=== PATIENT | female | born 1950 | race Caucasian/White ===

== ENCOUNTER 2020-03-18 08:46 | Outpatient (REF) | payer MEDICARE, SELFPAY ==
[2020-03-18 11:42] LABS: Glucose Urine UA NEG (NEG); Leukocyte Esterase Urine 1+ (NEG); Nitrite Urine NEG (NEG); PH 5.5 (5.0-8.0); Specific Gravity - Urine >= 1.030 (1.005-1.025); Urine Blood 1+ (NEG); Urine Ketones NEG (NEG); Urine Protein 1+ MG/DL (NEG-TRACE)
[2020-03-18 11:45] LABS: Appearance Urine CLOUDY; Color Urine YELLOW
[2020-03-18 12:03] LABS: Bacteria Urine 1+ /LPF; Squamous Epithelial Cell Urine 1+ /LPF; WBC Urine TNTC /HPF (0-4)
== END 2020-03-18 08:47 | disposition home or self-care (01) ==
LOC: HO.LAB 08:46
PROVIDERS: PCP Internal Medicine; Visit Provider Internal Medicine
DX: N39.0 Urinary tract infection, site not specified (principal)
CPT/HCPCS: 81001; 81003; 87086

== ENCOUNTER → 2020-04-26 09:46 | Outpatient (BNVA) | payer MEDICARE, SELFPAY | PROVIDERS: PCP Internal Medicine; Referring Provider Internal Medicine; Visit Provider Surgery | DX: C50.911 Malignant neoplasm of unspecified site of right female breast (principal); Z79.811 Long term (current) use of aromatase inhibitors; Z17.0 Estrogen receptor positive status [ER+]; Z92.3 Personal history of irradiation | CPT/HCPCS: 99212 ==

== ENCOUNTER 2020-06-14 13:36 | Outpatient (REF) | payer MEDICARE, SELFPAY ==
--- NOTE | 2020-06-14 13:41 | MM_ITS ---
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 Two biopsy clip markers localized prior to lumpectomy but only 1 clip marker visible on specimen x-ray. Due for yearly exam. COMPARISON: Mammography: 09/08/2019, 09/07/2019, 08/27/2019, outside mammography 02/18/2017 ([facility]). TECHNIQUE: Digital breast tomosynthesis is performed in both the craniocaudal and mediolateral oblique views along with computer-aided detection (CAD). Synthesized 2D images are generated from the tomosynthesis. Additional magnification right CC and magnification right ML views are obtained. FINDINGS: The breasts are heterogeneously dense, which may obscure small masses (ACR BI-RADS breast composition Category c). There are post therapy changes right breast with minor scarring and smooth anterior skin thickening. The missing biopsy clip marker noted at time of lumpectomy is not demonstrated within the breast. The left breast shows no interval mass or architectural abnormality. There are numerous bilateral round and coarse and punctate calcifications again seen. The axilla are unremarkable. Results are provided to the patient at time of visit by the technologist. MM/MM tomosynthesis diagnostic BI IMPRESSION: 1. No mammographic evidence of malignancy. 2. Post therapy changes right breast. 3. No residual clip marker is demonstrated right breast. ASSESSMENT: BI-RADS 2: Benign RECOMMENDATION: Annual bilateral mammography. This patient's information was entered into a reminder system with a target due date for their next mammogram.
== END 2020-06-14 13:37 | disposition home or self-care (01) ==
LOC: HO.MAMMO 13:36
PROVIDERS: PCP Internal Medicine; Visit Provider Surgery
DX: Z85.3 Personal history of malignant neoplasm of breast (principal)
CPT/HCPCS: 77062; 77066

== ENCOUNTER → 2020-06-26 07:41 | Outpatient (BNV) | payer MEDICARE, SELFPAY | PROVIDERS: PCP Internal Medicine; Visit Provider Internal Medicine | DX: C50.911 Malignant neoplasm of unspecified site of right female breast (principal) | CPT/HCPCS: 99212; 99213; 99214; G2211 ==

== ENCOUNTER → 2020-07-28 09:46 | Outpatient (BNVA) | payer MEDICARE, SELFPAY | PROVIDERS: PCP Internal Medicine; Visit Provider Surgery | DX: C50.911 Malignant neoplasm of unspecified site of right female breast (principal) | CPT/HCPCS: 99212 ==

== ENCOUNTER 2020-08-07 12:26 | Outpatient (REF) | payer MEDICARE, SELFPAY ==
[2020-08-07 13:51] LABS: MANUAL DIFF FLAG NO
[2020-08-07 14:13] LABS: Basophils Absolute Auto 0.1 X10*3/uL (0.0-0.2); Basophils Percent Auto 0.7 % (0-2); Eosinophils Absolute Auto 0.3 X10*3/uL (0.0-0.4); Eosinophils Percent Auto 4.2 % (0-4); Hematocrit 42.3 % (37-47); Hemoglobin 13.8 g/dl (12.0-16.0); Imm Gran Abs Auto 0.05 X10*3/uL (0.00-0.03); Imm Gran Pct Auto 0.7 % (0.0-0.4); Lymphocytes Absolute Auto 0.9 X10*3/uL (1.2-4.9); Mean Corpuscular HGB Conc 32.6 g/dl (31.0-35.0); Mean Corpuscular Hemoglobin 34.8 pg (27.0-33.0); Mean Corpuscular Volume 106.5 fL (80-98); Mean Platelet Volume 11.1 fL (9.4-12.3); Monocytes Absolute Auto 0.5 X10*3/uL (0.1-1.2); Monocytes Percent Auto 6.8 % (2-11); Neutrophils Absolute Auto 4.9 X10*3/uL (2.0-8.3); Neutrophils Percent Auto 73.6 % (45-73); Platelet Count 216 X10*3/uL (160-400); Red Blood Count 3.97 X10*6/uL (4.20-5.50); Red Cell Distribution Width 14.6 % (11.0-16.0); White Blood Count 6.7 X10*3/uL (4.8-10.8)
[2020-08-07 14:23] LABS: Glucose Urine UA NEG (NEG); Leukocyte Esterase Urine NEG (NEG); Nitrite Urine NEG (NEG); PH 5.5 (5.0-8.0); Specific Gravity - Urine 1.025 (1.005-1.025); Urine Blood NEG (NEG); Urine Ketones NEG (NEG); Urine Protein NEG (NEG-TRACE)
[2020-08-07 14:24] LABS: Appearance Urine CLEAR; Color Urine YELLOW
[2020-08-07 14:26] LABS: Estimated Average Glucose 137 mg/dL; Hemoglobin A1c % 6.4 %
[2020-08-07 14:53] LABS: Alanine Aminotransferase 15 U/L (0-31); Albumin Level 3.9 g/dL (3.5-5.0); Alkaline Phosphatase 95 U/L (39-117); Anion Gap 12 (12-20); Aspartate Amino Transferase 16 U/L (5-31); Bilirubin Total 0.6 mg/dL (0.0-1.0); Blood Urea Nitrogen 24 mg/dL (9-16); Calcium 8.7 mg/dL (8.4-10.2); Carbon Dioxide 26 mmol/L (22-29); Chloride 107 mmol/L (96-108); Cholesterol 117 mg/dL; Estimated Glomerular Filt Rate > 60; Glucose Fasting 106 mg/dL (60-99); HDL Cholesterol 39 mg/dL; LDL Cholesterol Calculated 63 mg/dl; Potassium 3.8 mmol/L (3.3-5.1); Sodium 141 mmol/L (135-145); Total Protein 7.2 g/dL (6.5-8.0); Triglycerides 75 mg/dL
[2020-08-07 14:57] LABS: Creatinine Urine 121.08 mg/dL; Microalbum/Creatinine Ratio Ur 32.2 ug/mg cr
[2020-08-07 15:04] LABS: TSH reflex Free T4 0.39 uIU/mL (0.32-4.0); Vitamin D 25-OH Total 39.5 ng/mL (>30)
[2020-08-07 15:30] LABS: Reflex LDLD? No
== END 2020-08-07 12:27 | disposition home or self-care (01) ==
LOC: HO.LNP 12:26
PROVIDERS: Visit Provider Internal Medicine
DX: E11.9 Type 2 diabetes mellitus without complications (principal); E03.9 Hypothyroidism, unspecified; E78.5 Hyperlipidemia, unspecified; R31.9 Hematuria, unspecified; I10 Essential (primary) hypertension; I73.9 Peripheral vascular disease, unspecified; E55.9 Vitamin D deficiency, unspecified
CPT/HCPCS: 80053; 80061; 81003; 82043; 82306; 83036; 84443; 85025

== ENCOUNTER 2020-08-15 13:49 | Outpatient (REF) | payer MEDICARE, SELFPAY ==
[2020-08-15 15:05] LABS: Vitamin B12 555 pg/mL (200-900)
[2020-08-15 15:59] LABS: Folate 3.7 ng/mL (> or = 4.0)
== END 2020-08-15 13:50 | disposition home or self-care (01) ==
LOC: HO.LNP 13:49
PROVIDERS: Visit Provider Internal Medicine
DX: E11.9 Type 2 diabetes mellitus without complications (principal)
CPT/HCPCS: 82607; 82746

== ENCOUNTER → 2020-09-22 09:38 | Outpatient (REF) | payer MEDICARE, SELFPAY ==
--- NOTE | 2020-09-22 09:42 | CA_ITS ---
Transthoracic Echocardiogram Patient (Last, First, Middle): Alla Velasquez, Gender: Female Date of : 1950 Age: 70 Procedure Date: 09/22/2020 Procedure Type: Transthoracic Echocardiogram Location: OP Height: 170.18 cm Weight: 83.01 kg BSA: 1.95 m2 Heart Rate: bpm BP: 139 / 64 mmHg Hydroponics Worker: SANTY Referring MD: Ariel Akhtar MD Symptoms: MURMUR Conclusions: - Normal left ventricular size and systolic function. - There is mildly increased left ventricular wall thickness. - E/E prime ratio is >15, consistent with elevated filling pressures. - Normal right ventricular cavity size and systolic function. - There is mild dilatation of the ascending aorta. Findings Left Ventricle Normal left ventricular size and systolic function. There is mildly increased left ventricular wall thickness. The visually estimated ejection fraction is between 60-65%. Abnormal diastolic function is noted. Spectral Doppler is indicative of an impaired relaxation filling pattern. E/E prime ratio is >15, consistent with elevated filling pressures. Right Ventricle Normal right ventricular cavity size and systolic function. Atria The left atrium is normal in size. Aortic Valve There is a normal trileaflet aortic valve. There is mild calcification of the aortic valve. There is no aortic valve stenosis. There is mild aortic valve regurgitation. Mitral Valve There is moderate mitral annular calcification. There is no mitral valve regurgitation. There is no mitral valve stenosis. Pulmonic Valve Normal pulmonic valve structure and function. There is trace pulmonic valve regurgitation. Great Vessels There is mild dilatation of the ascending aorta. The visualized portions of the pulmonary artery and branches are normal. Venous The inferior vena cava is normal in size and collapses greater than 50% with inspiration. Pericardium/Pleural There is no evidence of pericardial effusion. Prior Study Comparison No prior study available for comparison. Measurements 2D Linear Measurements IVSd: 0.86 0.6-0.9/0.6-1.0 cm LVIDd: 4.38 3.9-5.3/4.2-5.9 cm LVIDd Index: 2.25 2.4-3.2/2.2-3.1 cm/m2 LVIDs: 2.96 2.0-3.6 cm LVPWd: 0.92 0.7-1.1 cm Ao Root: 2.90 2.1-3.5 cm LA Diam: 3.40 2.7-3.8/3.0-4.0 cm LAIDs Index: 1.74 1.5-2.3 cm/m2 LV Mass: 155.59 67-162/88-224 g LV Mass Index: 79.79 43-95/49-115 g/m2 LVOT Diam: 2.10 3.0+(-)1.3 cm 2D Systolic Function EF 4C: 55.50 >55% EF 2C: 55.60 >55% Mitral Valve MV VTI: 0.41 MV Pk Doug: 1.36 MV Mn Doug: 0.70 MV Pk Grad: 7.00 MV Mn Grad: 2.00 MV Pk E: 1.16 MV PK A: 1.34 MV Decel Time: 193.00 E/A: 0.90 E'Lateral: 6.74 E'Medial: 6.09 E/E' Med: 19.00 E/E' Lat: 17.20 PHT: 56.00 MVA PHT: 3.93 MVA Continuity: 2.96 Decel [place]: 6.04 Aortic Valve AoV Pk Doug: 1.78 AoV Pk Grad: 13.00 AI Pk Doug: 3.91 AI [place]: 2.53 LVOT LVOT Pk Doug: 1.47 LVOT Mn Doug: 0.99 LVOT VTI: 0.35 LVOT Pk Grad: 9.00 LVOT Mn Grad: 5.00 LVOT Diam: 2.10 LVOT Area: 3.46 Diastolic Function MV Pk E: 1.16 MV Pk A: 1.34 E/A: 0.90 E'Medial: 6.09 E/E' Med: 19.00 E' Laterial: 6.74 E/E' Lat: 17.20 Tricuspid Valve RA Press: 3.00 Great Vessels Aorta Ao Root-2D: 2.90 2.0-3.7 cm Ao Asc: 3.60 2.1-3.4 cm Updated in Other Vendor System with Status of Final Crow Baker MD electronically signed on 09/23/2020 10:40:06 PM with status of Final
== END ==
LOC: HO.CARD 09:38
PROVIDERS: Visit Provider Internal Medicine
DX: R01.1 Cardiac murmur, unspecified (principal)
CPT/HCPCS: 93306

== ENCOUNTER 2020-10-09 10:29 | Outpatient (REF) | payer MEDICARE, SELFPAY ==
[2020-10-09 12:25] LABS: Blood Urea Nitrogen 20 mg/dL (9-16); Estimated Glomerular Filt Rate > 60
== END 2020-10-09 10:30 | disposition home or self-care (01) ==
LOC: HO.LNP 10:29
PROVIDERS: Visit Provider Internal Medicine
DX: R79.9 Abnormal finding of blood chemistry, unspecified (principal)
CPT/HCPCS: 82565; 84520

== ENCOUNTER → 2020-11-09 10:21 | Outpatient (BNVA) | payer MEDICARE, SELFPAY | PROVIDERS: PCP Internal Medicine; Referring Provider Internal Medicine; Visit Provider Surgery | DX: C50.911 Malignant neoplasm of unspecified site of right female breast (principal) | CPT/HCPCS: 99212 ==

== ENCOUNTER 2021-02-06 10:19 | Outpatient (REF) | payer MEDICARE, SELFPAY ==
[2021-02-06 10:46] LABS: Alanine Aminotransferase 14 U/L (0-31); Albumin Level 3.8 g/dL (3.5-5.0); Alkaline Phosphatase 89 U/L (39-117); Aspartate Amino Transferase 13 U/L (5-31); Bilirubin Direct 0.3 mg/dL (0.0-0.5); Bilirubin Total 0.8 mg/dL (0.0-1.0); Cholesterol 114 mg/dL; Glucose Fasting 151 mg/dL (60-99); HDL Cholesterol 38 mg/dL; LDL Cholesterol Calculated 60 mg/dl; Total Protein 6.6 g/dL (6.5-8.0); Triglycerides 81 mg/dL
[2021-02-06 14:32] LABS: Estimated Average Glucose 126 mg/dL
[2021-02-06 14:50] LABS: Reflex LDLD? No
== END 2021-02-06 10:20 | disposition home or self-care (01) ==
LOC: HO.LNP 10:19
PROVIDERS: Visit Provider Internal Medicine
DX: E11.9 Type 2 diabetes mellitus without complications (principal); E78.5 Hyperlipidemia, unspecified
CPT/HCPCS: 80061; 80076; 82947; 83036

== ENCOUNTER → 2021-02-08 09:16 | Outpatient (BNVA) | payer MEDICARE, SELFPAY | PROVIDERS: PCP Internal Medicine; Referring Provider Internal Medicine; Visit Provider Surgery | DX: C50.911 Malignant neoplasm of unspecified site of right female breast (principal) | CPT/HCPCS: 99212 ==

== ENCOUNTER 2021-06-21 13:23 | Outpatient (REF) | payer MEDICARE, SELFPAY ==
--- NOTE | ~2021-06-21 | MM_ITS ---
EXAMINATION: MM DIAGNOSTIC DIGITAL BREAST TOMOSYNTHESIS, BILATERAL CLINICAL INFORMATION: Invasive ductal cancer and DCIS right breast status post lumpectomy 09/15/2019. Due for yearly. COMPARISON: Mammography: 06/14/2020, 09/15/2019, 09/08/2019, 09/07/2019, 08/27/2019; outside mammography 02/18/2017 ([facility]). TECHNIQUE: Digital breast tomosynthesis is performed in both the craniocaudal and mediolateral oblique views along with computer-aided detection (CAD). Synthesized 2D images are generated from the tomosynthesis. Additional magnification right CC and magnification right ML views are obtained. FINDINGS: The breasts are heterogeneously dense, which may obscure small masses (ACR BI-RADS breast composition Category c). Right breast post therapy changes are similar to prior exam. There is mild reduced breast size and stable scarring. Some mild smooth skin thickening is slightly decreased. Left breast has fibrocystic changes and subareolar duct ectasia similar to prior studies. Neither breast shows interval mass or architectural abnormality or developing density. Again, there are innumerable fine and coarse and some rim calcifications in both breasts. The axilla are unremarkable. Results are provided to the patient at time of visit by the technologist. MM/MM tomosynthesis diagnostic BI IMPRESSION: No significant changes from prior exams. Post therapy changes right breast. ASSESSMENT: BI-RADS 2: Benign RECOMMENDATION: Annual bilateral mammography. This patient's information was entered into a reminder system with a target due date for their next mammogram.
== END 2021-06-21 13:24 | disposition home or self-care (01) ==
LOC: HO.MAMMO 13:23
PROVIDERS: PCP Internal Medicine; Visit Provider Surgery
DX: Z85.3 Personal history of malignant neoplasm of breast (principal)
CPT/HCPCS: 77062; 77066

== ENCOUNTER 2021-07-10 08:01 | Outpatient (RCR) | payer MEDICARE, SELFPAY | END 2021-09-03 09:24 | disposition home or self-care (01) | LOC: HO.WCC 08:01 | PROVIDERS: PCP Internal Medicine; Visit Provider Physician Assistant | DX: E11.622 Type 2 diabetes mellitus with other skin ulcer (principal); L97.812 Non-pressure chronic ulcer of other part of right lower leg with fat layer exposed; E11.51 Type 2 diabetes mellitus with diabetic peripheral angiopathy without gangrene; E11.65 Type 2 diabetes mellitus with hyperglycemia; I10 Essential (primary) hypertension; F17.210 Nicotine dependence, cigarettes, uncomplicated; Z79.4 Long term (current) use of insulin; Z79.01 Long term (current) use of anticoagulants; Z95.9 Presence of cardiac and vascular implant and graft, unspecified; Z79.899 Other long term (current) drug therapy; Z92.3 Personal history of irradiation | CPT/HCPCS: 11042; 15271; 99212; Q4187 ==

== ENCOUNTER → 2021-08-14 09:18 | Outpatient (BNVA) | payer MEDICARE, SELFPAY | PROVIDERS: PCP Physician Assistant; Referring Provider Internal Medicine; Visit Provider Surgery | DX: C50.411 Malignant neoplasm of upper-outer quadrant of right female breast (principal); C50.211 Malignant neoplasm of upper-inner quadrant of right female breast; Z17.0 Estrogen receptor positive status [ER+]; R59.0 Localized enlarged lymph nodes; E11.9 Type 2 diabetes mellitus without complications; I10 Essential (primary) hypertension; I71.4 Abdominal aortic aneurysm, without rupture; E03.9 Hypothyroidism, unspecified; E78.00 Pure hypercholesterolemia, unspecified; F17.210 Nicotine dependence, cigarettes, uncomplicated; Z92.3 Personal history of irradiation; Z95.5 Presence of coronary angioplasty implant and graft; Z79.82 Long term (current) use of aspirin; Z79.4 Long term (current) use of insulin; Z79.899 Other long term (current) drug therapy | CPT/HCPCS: 99212 ==

== ENCOUNTER 2021-08-20 10:41 | Outpatient (REF) | payer MEDICARE, SELFPAY ==
[2021-08-20 10:46] LABS: MANUAL DIFF FLAG NO
[2021-08-20 11:01] LABS: Appearance Urine CLEAR; Basophils Absolute Auto 0.1 X10*3/uL (0.0-0.2); Basophils Percent Auto 0.9 % (0-2); Color Urine YELLOW; Eosinophils Absolute Auto 0.2 X10*3/uL (0.0-0.4); Glucose Urine UA NEG (NEG); Hematocrit 42.5 % (37.0-47.0); Hemoglobin 14.1 g/dl (12.0-16.0); Imm Gran Abs Auto 0.03 X10*3/uL (0.00-0.03); Imm Gran Pct Auto 0.5 % (0.0-0.4); Leukocyte Esterase Urine NEG (NEG); Lymphocytes Absolute Auto 0.9 X10*3/uL (1.2-4.9); Mean Corpuscular HGB Conc 33.2 g/dl (31.0-35.0); Mean Corpuscular Hemoglobin 35.1 pg (27.0-33.0); Mean Corpuscular Volume 105.7 fL (80.0-98.0); Monocytes Absolute Auto 0.4 X10*3/uL (0.1-1.2); Monocytes Percent Auto 7.1 % (2-11); Neutrophils Absolute Auto 3.9 x10*3/uL (2.0-8.3); Neutrophils Percent Auto 70.5 % (45-73); Nitrite Urine NEG (NEG); PH 5.5 (5.0-8.0); Platelet Count 163 X10*3/uL (160-400); Red Blood Count 4.02 X10*6/uL (4.20-5.50); Red Cell Distribution Width 13.9 % (11.0-16.0); Specific Gravity - Urine 1.025 (1.005-1.025); Urine Blood NEG (NEG); Urine Ketones NEG (NEG); Urine Protein NEG (NEG-TRACE); White Blood Count 5.5 X10*3/uL (4.8-10.8)
[2021-08-20 11:09] LABS: Alanine Aminotransferase 18 U/L (0-31); Alkaline Phosphatase 93 U/L (39-117); Anion Gap 12 (12-20); Aspartate Amino Transferase 18 U/L (5-31); Bilirubin Total 0.5 mg/dL (0.0-1.0); Blood Urea Nitrogen 24 mg/dL (9-16); Calcium 9.3 mg/dL (8.4-10.2); Carbon Dioxide 26 mmol/L (22-29); Chloride 104 mmol/L (96-108); Cholesterol 129 mg/dL; Estimated Glomerular Filt Rate > 60; Glucose Fasting 124 mg/dL (60-99); HDL Cholesterol 46 mg/dL; LDL Cholesterol Calculated 68 mg/dl; Potassium 4.1 mmol/L (3.3-5.1); Sodium 138 mmol/L (135-145); Total Protein 7.3 g/dL (6.5-8.0); Triglycerides 77 mg/dL
[2021-08-20 11:18] LABS: Estimated Average Glucose 126 mg/dL
[2021-08-20 11:32] LABS: Vitamin D 25-OH Total 33.9 ng/mL (>30)
[2021-08-20 12:06] LABS: Free T4 (Free Thyroxine) 1.46 ng/dL (0.71-1.85)
[2021-08-20 12:31] LABS: Creatinine Urine 59.16 mg/dL; Microalbum/Creatinine Ratio Ur 37.1 ug/mg cr
== END 2021-08-20 10:42 | disposition home or self-care (01) ==
LOC: HO.LNP 10:41
PROVIDERS: PCP Internal Medicine; Visit Provider Internal Medicine
DX: E11.9 Type 2 diabetes mellitus without complications (principal); I10 Essential (primary) hypertension; E78.5 Hyperlipidemia, unspecified; E03.9 Hypothyroidism, unspecified; E55.9 Vitamin D deficiency, unspecified
CPT/HCPCS: 80053; 80061; 81003; 82043; 82306; 83036; 84439; 84443; 85025

== ENCOUNTER 2021-08-30 13:58 | Outpatient (REF) | payer MEDICARE, SELFPAY ==
--- NOTE | ~2021-08-30 | US_ITS ---
EXAMINATION: NONINVASIVE ASSESSMENT OF THE ARTERIES OF BOTH LOWER EXTREMITIES WITH PVR EXAM AND RIGHT LOWER EXTREMITY DUPLEX CLINICAL INFORMATION: Peripheral vascular disease. History of left leg stent . TECHNIQUE: Ankle pulse volume recordings, ankle pressure measurements and ankle brachial indices were obtained of the lower extremity arterial system bilaterally. Additionally, duplex Doppler techniques were used with wave form analysis and measurement of velocities in the common femoral, profunda femoral, superficial femoral, popliteal and tibial arteries on the right. The study was performed only at rest. COMPARISON: None. FINDINGS: ANKLE-BRACHIAL INDEX: Right: 0.59 Left: 0.95. PVR WAVEFORM: Right: Moderately dampened. Left: Mildly dampened. DIRECT DUPLEX DOPPLER FINDINGS: RIGHT LEG: Common femoral artery: 112 cm/s, diastolic flow reversal: Yes. Profunda femoris artery: 161 cm/s, diastolic flow reversal: Yes. Superficial femoral artery (proximal): 154 cm/s, diastolic flow reversal: Yes. Superficial femoral artery (mid): 46 cm/s, diastolic flow reversal: No. Superficial femoral artery (distal): Occluded though the very distal SFA is reconstituted via collateral with a peak systolic velocity of 28.3 cm/s. Popliteal artery: 33 cm/s, diastolic flow reversal: No. Posterior tibial artery: 46cm/s, diastolic flow reversal: No. Peroneal artery: Not visualized, likely occluded. US/US VIPUL complete IMPRESSION: Right leg: VIPUL 0.59 consistent with moderate peripheral arterial disease. Right lower extremity duplex reveals focal occlusion of the distal right SFA with reconstitution of the very distal SFA/popliteal artery via collaterals. Left leg: VIPUL 0.95 consistent with mild peripheral arterial disease. VIPUL Reference: - >0.97-1.25 = normal - no significant arterial disease. - 0.75-0.96 = mild peripheral arterial disease. - 0.5-0.74 = moderate peripheral arterial disease. - <0.50 = severe peripheral arterial disease.
--- NOTE | ~2021-08-30 | US_ITS ---
EXAMINATION: NONINVASIVE ASSESSMENT OF THE ARTERIES OF BOTH LOWER EXTREMITIES WITH PVR EXAM AND RIGHT LOWER EXTREMITY DUPLEX CLINICAL INFORMATION: Peripheral vascular disease. History of left leg stent . TECHNIQUE: Ankle pulse volume recordings, ankle pressure measurements and ankle brachial indices were obtained of the lower extremity arterial system bilaterally. Additionally, duplex Doppler techniques were used with wave form analysis and measurement of velocities in the common femoral, profunda femoral, superficial femoral, popliteal and tibial arteries on the right. The study was performed only at rest. COMPARISON: None. FINDINGS: ANKLE-BRACHIAL INDEX: Right: 0.59 Left: 0.95. PVR WAVEFORM: Right: Moderately dampened. Left: Mildly dampened. DIRECT DUPLEX DOPPLER FINDINGS: RIGHT LEG: Common femoral artery: 112 cm/s, diastolic flow reversal: Yes. Profunda femoris artery: 161 cm/s, diastolic flow reversal: Yes. Superficial femoral artery (proximal): 154 cm/s, diastolic flow reversal: Yes. Superficial femoral artery (mid): 46 cm/s, diastolic flow reversal: No. Superficial femoral artery (distal): Occluded though the very distal SFA is reconstituted via collateral with a peak systolic velocity of 28.3 cm/s. Popliteal artery: 33 cm/s, diastolic flow reversal: No. Posterior tibial artery: 46cm/s, diastolic flow reversal: No. Peroneal artery: Not visualized, likely occluded. US/US arterial duplex LE RT IMPRESSION: Right leg: VIPUL 0.59 consistent with moderate peripheral arterial disease. Right lower extremity duplex reveals focal occlusion of the distal right SFA with reconstitution of the very distal SFA/popliteal artery via collaterals. Left leg: VIPUL 0.95 consistent with mild peripheral arterial disease. VIPUL Reference: - >0.97-1.25 = normal - no significant arterial disease. - 0.75-0.96 = mild peripheral arterial disease. - 0.5-0.74 = moderate peripheral arterial disease. - <0.50 = severe peripheral arterial disease.
== END 2021-08-30 13:59 | disposition home or self-care (01) ==
LOC: HO.US 13:58
PROVIDERS: PCP Physician Assistant; Visit Provider Physician Assistant
DX: I73.9 Peripheral vascular disease, unspecified (principal)
CPT/HCPCS: 93923; 93926

== ENCOUNTER 2021-11-19 11:30 | Outpatient (REF) | payer MEDICARE, SELFPAY ==
[2021-11-19 12:18] LABS: TSH reflex Free T4 0.32 uIU/mL (0.32-4.0)
== END 2021-11-19 11:31 | disposition home or self-care (01) ==
LOC: HO.LNP 11:30
PROVIDERS: PCP Internal Medicine; Visit Provider Internal Medicine
DX: E03.9 Hypothyroidism, unspecified (principal)
CPT/HCPCS: 84443

== ENCOUNTER 2021-11-20 07:11 | Day surgery (SDC) | payer MEDICARE, SELFPAY ==
[2021-11-14 10:08] VITALS: BMI 26.7
--- NOTE | 2021-11-19 08:26 | P.CONAN_ITS ---
Documented by User: Bianca Montero NP 11/19/21 08:28 HPI - Anesthesia Eval Consult details Narrative: 71yo F for Colonoscopy Eliquis for vascular stent PMFSH Active Problems Active Problems: All Active Problems (Updated 07/02/21 @ 08:22 by Nicolette Helton MD) Invasive ductal carcinoma of right breast (Chronic) Past Medical History Medical History AAA (abdominal aortic aneurysm) Diabetes High cholesterol Hypertension Hypothyroid Presence of stent in artery Family History Family History Brother History of bladder cancer Brother History of bladder cancer Mother Diabetes Heart abnormality History of bladder cancer Pacemaker Father Stroke Heart attack Surgical History Surgical History History of cataract surgery History of cholecystectomy History of hernia repair History of hysterectomy History of lumpectomy of right breast (09/15/19) History of right knee surgery Social History Social History Household Members: Spouse Housing: House Are you a primary pharmacist critical care to a significant other at home: No Do you presently have visiting nurse or other home services: No Alcohol intake: former Patient Tobacco Use Status: Current everyday Tobacco user Tobacco use type: Cigarette Cigarette Packs Per Day: 0.5 Use of substances other than those prescribed or required for medical reasons: No Are you DNR?: No Advance Directives: No Advance Directives Information Provided: Yes service: No Current occupational status: employed 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 [employer] Current occupational exposures/hazards: Yes (Stress) Sexual orientation: Straight/Heterosexual Gender identity: Female Meds Allergies Allergy/AdvReac Type Severity Reaction Status Date / Time codeine Allergy Mild Nausea and Verified 11/20/21 08:01 Vomiting oxycodone [From OxyContin] Allergy Mild Nausea and Verified 11/20/21 08:01 Vomiting Home Medications Medication Instructions Recorded Confirmed Last Taken Type atorvastatin 80 mg tablet 80 mg PO DAILY 04/26/20 08/14/21 Unknown History blood sugar diagnostic #10 ea 04/26/20 08/14/21 Unknown History insulin glargine 100 unit/mL (3 40 unit subcut BEDTIME 04/26/20 08/14/21 Unknown History mL) subcutaneous pen (Lantus Solostar U-100 Insulin) levothyroxine 175 mcg tablet 175 mcg PO DAILY 04/26/20 08/14/21 Unknown History lisinopril 20 mg tablet 20 mg PO DAILY 04/26/20 08/14/21 Unknown History pen needle, diabetic 31 gauge x #1,200 ea 04/26/20 08/14/21 Unknown History 10/22 trazodone 50 mg tablet 50 mg PO BEDTIME 04/26/20 08/14/21 Unknown History insulin lispro 100 unit/mL 4 - 12 unit subcut TID 06/26/20 08/14/21 Unknown Hist ory subcutaneous pen (Humalog KwikPen (U-100) Insulin) apixaban 5 mg tablet (Eliquis) 5 mg PO BID 11/09/20 08/14/21 11/16/21 History aspirin 81 mg tablet,delayed 81 mg PO DAILY 11/09/20 08/14/21 Unknown History release (Adult Aspirin Regimen) cholecalciferol (vitamin D3) 25 25 mcg PO DAILY 07/02/21 08/14/21 Unknown History mcg (1,000 unit) chewable tablet (Vitamin D3) Exam Exam Date and Time: November 19, 2021 0826 Height,Weight and Vital Signs: Height 5 ft 7 in Weight 77.564 kg Pertinent Lab Results Pertinent Lab Results: Laboratory Tests 08/20/21 08/20/21 07:20 07:20 WBC 5.5 Hgb 14.1 Hct 42.5 Plt Count 163 Sodium 138 Potassium 4.1 Chloride 104 Carbon Dioxide 26 BUN 24 H D Creatinine 0.67 Narrative Narrative: ECHO 09/2020 Conclusions: - Normal left ventricular size and systolic function.? - There is mildly increased left ventricular wall thickness. ? ? - E/E prime ratio is >15, consistent with elevated filling ? ? ? pressures. ? - Normal right ventricular cavity size and systolic function.? ? - There is mild dilatation of the ascending aorta. ? Findings Left Ventricle Normal left ventricular size and systolic function. There is mildly increased left ventricular wall thickness.? The visually estimated ejection fraction is between 60-65%.? Abnormal diastolic function is noted.? Spectral Doppler is indicative of an impaired relaxation filling pattern.? E/E prime ratio is >15, consistent with elevated filling pressures. Assessment and Plan Assessment Anesthesia Assessment: Chart Reviewed Documented by User: Rolan Kilpatrick MD 11/20/21 08:05 PMF Past Medical History Medical History AAA (abdominal aortic aneurysm) Diabetes High cholesterol Hypertension Hypothyroid Presence of stent in artery Family History Family History Brother History of bladder cancer Brother History of bladder cancer Mother Diabetes Heart abnormality History of bladder cancer Pacemaker Father Stroke Heart attack Family history of problems with anesthesia: No Surgical History Surgical History History of cataract surgery History of cholecystectomy History of hernia repair History of hysterectomy History of lumpectomy of right breast (09/15/19) History of right knee surgery Social History Social History Household Members: Spouse Housing: House Are you a primary pharmacist critical care to a significant other at home: No Do you presently have visiting nurse or other home services: No Alcohol intake: former Patient Tobacco Use Status: Current everyday Tobacco user Tobacco use type: Cigarette Cigarette Packs Per Day: 0.5 Use of substances other than those prescribed or required for medical reasons: No Are you DNR?: No Advance Directives: No Advance Directives Information Provided: Yes service: No Current occupational status: employed 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 [employer] Current occupational exposures/hazards: Yes (Stress) Sexual orientation: Straight/Heterosexual Gender identity: Female Meds Allergies Allergy/AdvReac Type Severity Reaction Status Date / Time codeine Allergy Mild Nausea and Verified 11/20/21 08:01 Vomiting oxycodone [From OxyContin] Allergy Mild Nausea and Verified 11/20/21 08:01 Vomiting Home Medications Medication Instructions Recorded Confirmed Last Taken Type atorvastatin 80 mg tablet 80 mg PO DAILY 04/26/20 08/14/21 Unknown History blood sugar diagnostic #10 ea 04/26/20 08/14/21 Unknown History insulin glargine 100 unit/mL (3 40 unit subcut BEDTIME 04/26/20 08/14/21 Unknown History mL) subcutaneous pen (Lantus Solostar U-100 Insulin) levothyroxine 175 mcg tablet 175 mcg PO DAILY 04/26/20 08/14/21 Unknown History lisinopril 20 mg tablet 20 mg PO DAILY 04/26/20 08/14/21 Unknown History pen needle, diabetic 31 gauge x #1,200 ea 04/26/20 08/14/21 Unknown History 5/16 trazodone 50 mg tablet 50 mg PO BEDTIME 04/26/20 08/14/21 Unknown History insulin lispro 100 unit/mL 4 - 12 unit subcut TID 06/26/20 08/14/21 Unknown History subcutaneous pen (Humalog KwikPen (U-100) Insulin) apixaban 5 mg tablet (Eliquis) 5 mg PO BID 11/09/20 08/14/21 11/16/21 History aspirin 81 mg tablet,delayed 81 mg PO DAILY 11/09/20 08/14/21 Unknown History release (Adult Aspirin Regimen) cholecalciferol (vitamin D3) 25 25 mcg PO DAILY 07/02/21 08/14/21 Unknown History mcg (1,000 unit) chewable tablet (Vitamin D3) Exam Airway Mallampati Class: I TM Dist: >3cm Neck ROM: Full Denture: Upper and Lower Loose/Missing/Broken Teeth: Yes Assessment and Plan Assessment Anesthesia Assessment: Anesthesia Plan Discussed Final Anesthetic Review Family History of Problems with Anesthesia: No ASA Class: III Final Preanesthetic Review: No Changes in Pt Med Stat, Meds/Allgs Chart Reviewed, Consent Obtained/Reviewed and Anes Risks/Benef Reviewed Patient Risk: Intermediate Procedure Risk: Low Anesthetic Plan Anesthetic Plan: MAC: Disposition: Standard PACU
[2021-11-20 07:33] VITALS: BMI 26.7
[2021-11-20 07:46] LABS: Glucose, Whole Blood 159 mg/dL (60-115)
[2021-11-20 07:48] VITALS: BP 124/65; PULSE 69; RESP 16; TEMP 36.8; O2SAT 96
--- NOTE | 2021-11-20 08:03 | MHC.SHP ---
Pre-Procedural Eval Section A Date of Service: 11/20/21 Section B Chief Complaint: screening Details of Present Illness: see H&P no changes Relevant Family History (Specify if Yes): No Relevant Social History: None Present Medications: see Short Stay Collaborative assessment Medical History: No relevant PMH History of Previous Operations: No relevant previous surgery Allergies: Allergies Allergy/AdvReac Type Severity Reaction Status Date / Time codeine Allergy Mild Nausea and Verified 11/20/21 08:01 Vomiting oxycodone [From OxyContin] Allergy Mild Nausea and Verified 11/20/21 08:01 Vomiting Review of Systems Sugical H&P ROS: Negative: Constitution, Cardiovascular, Respiratory, Neurological, Psychiatric, Hem-Onc, Allergic/Immunologic, Gastrointestinal, Genitourinary, Musculoskeletal, Integumentary, Endocrine and Eyes/Ears/Nose/Throat Exam Surgical H&P Exam: Normal: HEENT, Normal: Heart, Normal: Lungs, Normal: Extremities, Normal: Abdomen, Normal: Skin and Normal: Neurological Plan Diagnosis/Plan: Unchanged I have reviewed the history and physical and performed a pertinent physical examination on my patient. No changes have occurred unless specified.
--- NOTE | 2021-11-20 08:40 | P.BOP_ITS ---
Brief Operative Note Date of Service: 11/20/21 Pre-op diagnosis: screening Post-op diagnosis: same Surgeon: Ace Schofield Anesthesia: MAC Was an Operations Vice President used for this Procedure?: No Estimated blood loss (mL): 2 Pathology: other (polyps x3) Condition: stable Disposition: PACU
[2021-11-20 08:41] VITALS: BP 101/53; PULSE 70; RESP 20; TEMP 36.3; O2SAT 99
[2021-11-20 08:56] VITALS: BP 118/61; PULSE 68; RESP 20; TEMP 36.3; O2SAT 98
--- NOTE | 2021-11-20 09:10 | OP_ITS ---
SURGEON: Ace Schofield MD INDICATIONS: Colon cancer screening and prior history of adenomatous colon polyps. PREOPERATIVE DIAGNOSIS: POSTOPERATIVE DIAGNOSIS: PROCEDURE PERFORMED: Colonoscopy to the terminal ileum with snare polypectomy and biopsy. ESTIMATED BLOOD LOSS: COMPLICATIONS: ANESTHESIA: ASSISTANTS: SPECIMENS: MEDICATIONS: Monitored anesthesia care. DESCRIPTION OF PROCEDURE: History and physical performed. The risks and benefits of the procedure were explained to the patient. Informed consent was obtained. The patient was placed in the left lateral decubitus position. A digital rectal exam was performed and was found to be normal. The Olympus pediatric video colonoscope was introduced into the rectum and advanced to the cecum without difficulty. The cecum was identified by transillumination, palpation, and identification of ileocecal valve. Examination was performed. The scope was removed. She tolerated the procedure well, returned to recovery area in stable condition. FINDINGS: The terminal ileum was examined and appeared normal. The visualized colonic mucosa was within normal limits without evidence of masses or ulcers. Three polyps were identified. All were less than 10 mm and removed with a combination of snare polypectomy and biopsy forceps. These were located at 45, 30, and 20 cm. Retroflexed examination showed some hypertrophic anal papillae and some small internal hemorrhoids. There was mild sigmoid diverticulosis. The quality of prep was good. IMPRESSION: Colon polyps. RECOMMENDATIONS: Follow up the biopsy results. MD RENALDO Espinal/ANA LAURA / [id number]
== END 2021-11-20 09:24 | disposition home or self-care (01) ==
PROVIDERS: PCP Physician Assistant; Visit Provider Internal Medicine Gastroenterology
PROC: 0DJD8ZZ Inspection of Lower Intestinal Tract, Via Natural or Artificial Opening Endoscopic (ICD-10-PCS; CPT 45378; principal; 2021-11-20 08:20)
DX: Z12.11 Encounter for screening for malignant neoplasm of colon (principal); Z86.010 Personal history of colon polyps; D12.5 Benign neoplasm of sigmoid colon; K62.89 Other specified diseases of anus and rectum; K57.30 Diverticulosis of large intestine without perforation or abscess without bleeding; K64.8 Other hemorrhoids; C50.911 Malignant neoplasm of unspecified site of right female breast; Z85.42 Personal history of malignant neoplasm of other parts of uterus; E03.9 Hypothyroidism, unspecified; E78.00 Pure hypercholesterolemia, unspecified; I10 Essential (primary) hypertension; I71.4 Abdominal aortic aneurysm, without rupture; E11.9 Type 2 diabetes mellitus without complications; Z79.4 Long term (current) use of insulin; Z79.82 Long term (current) use of aspirin; Z79.811 Long term (current) use of aromatase inhibitors; Z79.899 Other long term (current) drug therapy; Z90.49 Acquired absence of other specified parts of digestive tract; Z88.8 Allergy status to other drugs, medicaments and biological substances; F17.210 Nicotine dependence, cigarettes, uncomplicated
CPT/HCPCS: 45385; 45380; 82947; 88305

== ENCOUNTER 2022-01-01 11:07 | Outpatient (REF) | payer MEDICARE, SELFPAY ==
[2022-01-01 11:21] LABS: MANUAL DIFF FLAG NO
[2022-01-01 11:42] LABS: Basophils Percent Auto 0.9 % (0-2); Eosinophils Absolute Auto 0.2 X10*3/uL (0.0-0.4); Eosinophils Percent Auto 5.3 % (0-4); Hematocrit 38.6 % (37.0-47.0); Imm Gran Abs Auto 0.02 X10*3/uL (0.00-0.03); Imm Gran Pct Auto 0.4 % (0.0-0.4); Lymphocytes Percent Auto 21.1 % (20-40); Mean Corpuscular HGB Conc 33.7 g/dl (31.0-35.0); Mean Corpuscular Hemoglobin 35.1 pg (27.0-33.0); Mean Corpuscular Volume 104.3 fL (80.0-98.0); Mean Platelet Volume 11.9 fL (9.4-12.3); Monocytes Absolute Auto 0.4 X10*3/uL (0.1-1.2); Monocytes Percent Auto 8.3 % (2-11); Neutrophils Absolute Auto 2.9 x10*3/uL (2.0-8.3); Platelet Count 138 X10*3/uL (160-400); Red Cell Distribution Width 14.9 % (11.0-16.0); White Blood Count 4.6 X10*3/uL (4.8-10.8)
== END 2022-01-01 11:08 | disposition home or self-care (01) ==
LOC: HO.LNP 11:07
PROVIDERS: Visit Provider Internal Medicine
DX: D75.89 Other specified diseases of blood and blood-forming organs (principal)
CPT/HCPCS: 85025

== ENCOUNTER → 2022-02-14 14:02 | Outpatient (BNVA) | payer MEDICARE, SELFPAY | PROVIDERS: PCP Internal Medicine; Visit Provider Surgery | DX: C50.211 Malignant neoplasm of upper-inner quadrant of right female breast (principal); C50.411 Malignant neoplasm of upper-outer quadrant of right female breast; Z17.0 Estrogen receptor positive status [ER+]; Z79.811 Long term (current) use of aromatase inhibitors; Z92.3 Personal history of irradiation | CPT/HCPCS: 99212 ==

== ENCOUNTER 2022-03-26 08:16 | Outpatient (REF) | payer MEDICARE, SELFPAY ==
--- NOTE | ~2022-03-26 | MM_ITS ---
EXAMINATION: BONE DENSITOMETRY CLINICAL INDICATION: Menopausal. COMPARISON: Baseline BD dated 10/26/2019. TECHNIQUE: Using a [employer] DXA System (software version: 13.1) manufactured by [employer], dual-energy x-ray absorptiometry was performed of the lumbar spine and left hip. The images are of good technical quality. Summary results are attached. FINDINGS: AP SPINE L1-L2 (excluding L3 and L4): The data of L1-L4 has been changed to exclude the L3 and L4 vertebral bodies, because degenerative changes at these levels may cause overestimation of lumbar spine density. Current: BMD 1.145 g/cm2, Z-score 1.1, T-score -0.2, normal, 3.0% decrease from baseline (<5% change is not significant). Baseline: BMD 1.181 g/cm2. LEFT FEMUR, NECK: Current: BMD 0.858 g/cm2, Z-score 0.2, T-score -1.3, osteopenia. Baseline: BMD 1.029 g/cm2. LEFT FEMUR, TOTAL: Current: BMD 0.917 g/cm2, Z-score 0.5, T-score -0.7, normal, 13.2% decrease from baseline (<5% change is not significant). Baseline: BMD 1.057 g/cm2. IDENTIFIED RISK FACTORS: Menopause, height loss, hysterectomy, osteoporosis, tobacco use (current smoker). HISTORY OF FRACTURE: None listed. MEDICATIONS: Vitamin D. MM/XR DEXA axial skeleton IMPRESSION: 1. DIAGNOSIS: Osteopenia based on the lowest T-score value of -1.3 in the femoral neck applying World Health Organization criteria. 2. 10-YEAR FRACTURE RISK PREDICTION, FRAX: Major osteoporotic fracture (clinical spine, forearm, hip or shoulder) 10.2%. Hip fracture 2.3%. 3. Treatment Recommendations: NOF guidelines recommend consideration for treatment in postmenopausal women and men age 50 and older presenting with the following: -A hip or vertebral (clinical or morphometric) fracture. -T-score less than or equal to -2.5 at the femoral neck or spine after appropriate evaluation to exclude secondary causes. -Low bone mass at the hip or spine and a 10-year fracture probability by FRAX of greater than or equal to 3% for hip fracture or greater than or equal to 20% for major osteoporotic fracture based on the [place] adapted WHO algorithm. 4. Other Recommendations: All treatment decisions require clinical judgment and consideration of individual patient factors, including patient preferences, comorbidities, previous drug use, risk factors not captured in the FRAX model (e.g. frailty, falls, vitamin D deficiency, increased bone turnover, interval significant decline in bone density) and possible under or overestimation of fracture risk by FRAX. Additional medical evaluation for secondary cause of low bone mineral density may be appropriate. FUTURE SCAN RECOMMENDATION: People with diagnosed cases of osteoporosis or at high risk for fracture should have regular bone mineral density tests. For patients eligible for Medicare, routine testing is allowed once every 2 years. The testing frequency can be increased to one year for patients who have rapidly progressing disease, those who are receiving or discontinuing medical therapy to restore bone mass, or have additional risk factors.
== END 2022-03-26 08:17 | disposition home or self-care (01) ==
LOC: HO.MAMMO 08:16
PROVIDERS: Visit Provider Internal Medicine
DX: Z13.820 Encounter for screening for osteoporosis (principal); Z78.0 Asymptomatic menopausal state
CPT/HCPCS: 77080

== ENCOUNTER 2022-04-22 10:54 | Outpatient (REF) | payer MEDICARE, SELFPAY ==
[2022-04-22 10:58] LABS: MANUAL DIFF FLAG NO
[2022-04-22 11:15] LABS: Basophils Percent Auto 0.9 % (0-2); Eosinophils Absolute Auto 0.2 X10*3/uL (0.0-0.4); Eosinophils Percent Auto 4.4 % (0-4); Hematocrit 38.1 % (37.0-47.0); Imm Gran Abs Auto 0.02 X10*3/uL (0.00-0.03); Imm Gran Pct Auto 0.5 % (0.0-0.4); Lymphocytes Absolute Auto 0.9 X10*3/uL (1.2-4.9); Lymphocytes Percent Auto 19.6 % (20-40); Mean Corpuscular HGB Conc 34.1 g/dl (31.0-35.0); Mean Corpuscular Hemoglobin 35.2 pg (27.0-33.0); Mean Corpuscular Volume 103.3 fL (80.0-98.0); Mean Platelet Volume 11.8 fL (9.4-12.3); Monocytes Absolute Auto 0.3 X10*3/uL (0.1-1.2); Monocytes Percent Auto 7.6 % (2-11); Neutrophils Absolute Auto 2.9 x10*3/uL (2.0-8.3); Platelet Count 149 X10*3/uL (160-400); Red Blood Count 3.69 X10*6/uL (4.20-5.50); Red Cell Distribution Width 14.6 % (11.0-16.0); White Blood Count 4.3 X10*3/uL (4.8-10.8)
== END 2022-04-22 10:55 | disposition home or self-care (01) ==
LOC: HO.LNP 10:54
PROVIDERS: Visit Provider Internal Medicine
DX: D69.59 Other secondary thrombocytopenia (principal)
CPT/HCPCS: 85025

== ENCOUNTER 2022-07-11 08:37 | Outpatient (REF) | payer MEDICARE, SELFPAY ==
--- NOTE | ~2022-07-11 | MM_ITS ---
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 Due for yearly. COMPARISON: Mammography: 06/21/2021, 06/14/2020, 09/15/2019, 09/08/2019, 09/07/2019, 08/27/2019 TECHNIQUE: Digital breast tomosynthesis is performed in both the craniocaudal and mediolateral oblique views along with computer-aided detection (CAD). Synthesized 2D images are generated from the tomosynthesis. Additional magnification right CC and magnification right ML x2 views are obtained. FINDINGS: The breasts are heterogeneously dense, which may obscure small masses (ACR BI-RADS breast composition Category c). Breast tissue composition borders on extremely dense. Parenchymal pattern is similar to prior study. There are post therapy changes again seen on the right. Neither breast shows interval significant mass or architectural abnormality or developing density. There are numerable bilateral predominantly coarse and rim and some punctate calcifications again seen. The axilla are unremarkable. No significant changes. Results are provided to the patient at time of visit by the technologist. MM/MM tomosynthesis diagnostic BI IMPRESSION: -No mammographic evidence of malignancy. -Post therapy changes right breast. ASSESSMENT: BI-RADS 2: Benign RECOMMENDATION: Annual bilateral mammography. This patient's information was entered into a reminder system with a target due date for their next mammogram.
== END 2022-07-11 08:38 | disposition home or self-care (01) ==
LOC: HO.MAMMO 08:37
PROVIDERS: Visit Provider Internal Medicine
DX: Z85.3 Personal history of malignant neoplasm of breast (principal)
CPT/HCPCS: 77062; 77066

== ENCOUNTER 2022-07-18 11:00 | Outpatient (REF) | payer MEDICARE, SELFPAY ==
[2022-07-18 11:02] LABS: MANUAL DIFF FLAG NO
[2022-07-18 12:06] LABS: Basophils Absolute Auto 0.1 X10*3/uL (0.0-0.2); Eosinophils Absolute Auto 0.1 X10*3/uL (0.0-0.4); Eosinophils Percent Auto 2.9 % (0-4); Hematocrit 38.4 % (37.0-47.0); Hemoglobin 12.9 g/dl (12.0-16.0); Imm Gran Abs Auto 0.02 X10*3/uL (0.00-0.03); Imm Gran Pct Auto 0.4 % (0.0-0.4); Lymphocytes Absolute Auto 0.8 X10*3/uL (1.2-4.9); Lymphocytes Percent Auto 16.8 % (20-40); Mean Corpuscular HGB Conc 33.6 g/dl (31.0-35.0); Mean Corpuscular Hemoglobin 33.9 pg (27.0-33.0); Mean Corpuscular Volume 101.1 fL (80.0-98.0); Mean Platelet Volume 11.6 fL (9.4-12.3); Monocytes Absolute Auto 0.3 X10*3/uL (0.1-1.2); Monocytes Percent Auto 6.6 % (2-11); Neutrophils Absolute Auto 3.5 x10*3/uL (2.0-8.3); Neutrophils Percent Auto 72.3 % (45-73); Platelet Count 157 X10*3/uL (160-400); Red Cell Distribution Width 14.5 % (11.0-16.0); White Blood Count 4.9 X10*3/uL (4.8-10.8)
== END 2022-07-18 11:01 | disposition home or self-care (01) ==
LOC: HO.LNP 11:00
PROVIDERS: Visit Provider Internal Medicine
DX: Z13.89 Encounter for screening for other disorder (principal)
CPT/HCPCS: 85025

== ENCOUNTER 2022-08-12 11:00 | Outpatient (REF) | payer MEDICARE, SELFPAY ==
[2022-08-12 12:02] LABS: Alanine Aminotransferase 9 U/L (0-31); Albumin Level 3.5 g/dL (3.5-5.0); Alkaline Phosphatase 83 U/L (39-117); Aspartate Amino Transferase 12 U/L (5-31); Bilirubin Total 0.8 mg/dL (0.0-1.0); Cholesterol 109 mg/dL; Glucose Fasting 117 mg/dL (60-99); HDL Cholesterol 33 mg/dL; LDL Cholesterol Calculated 61 mg/dl; Total Protein 6.3 g/dL (6.5-8.0); Triglycerides 76 mg/dL
[2022-08-12 12:05] LABS: Bilirubin Direct 0.3 mg/dL (0.0-0.5)
[2022-08-12 12:06] LABS: Estimated Average Glucose 123 mg/dL; Hemoglobin A1c % 5.9 %
== END 2022-08-12 11:01 | disposition home or self-care (01) ==
LOC: HO.LNP 11:00
PROVIDERS: Visit Provider Internal Medicine
DX: E11.9 Type 2 diabetes mellitus without complications (principal); E78.5 Hyperlipidemia, unspecified
CPT/HCPCS: 80061; 80076; 82947; 83036

== ENCOUNTER → 2022-08-15 08:54 | Outpatient (BNVA) | payer MEDICARE, SELFPAY | PROVIDERS: PCP Internal Medicine; Visit Provider Surgery | DX: C50.411 Malignant neoplasm of upper-outer quadrant of right female breast (principal); C50.211 Malignant neoplasm of upper-inner quadrant of right female breast; Z17.0 Estrogen receptor positive status [ER+]; Z92.3 Personal history of irradiation; Z79.811 Long term (current) use of aromatase inhibitors | CPT/HCPCS: 99212 ==

== ENCOUNTER 2022-11-14 16:05 | Outpatient (REF) | payer MEDICARE, SELFPAY ==
[2022-11-14 16:35] LABS: Appearance Urine Clear; Color Urine Yellow; Glucose Urine UA Negative (Negative); Leukocyte Esterase Urine Trace (Negative); Nitrite Urine Negative (Negative); UMIC TRIGGER UACC YES; Urine Blood Negative (Negative); Urine Ketones Negative (Negative); Urine Protein Negative (Neg-Trace)
[2022-11-14 16:37] LABS: Bacteria Urine None Seen (None Seen); Hyaline Casts Urine 0-2 /LPF (0-2); RBC Urine 0-2 /HPF (0-2); WBC Urine 0-5 /HPF (0-5)
== END 2022-11-14 16:06 | disposition home or self-care (01) ==
LOC: HO.LNP 16:05
PROVIDERS: Visit Provider Internal Medicine
DX: N39.0 Urinary tract infection, site not specified (principal)
CPT/HCPCS: 81001

== ENCOUNTER 2023-02-14 11:39 | Outpatient (REF) | payer MEDICARE, SELFPAY ==
[2023-02-14 11:46] LABS: MANUAL DIFF FLAG NO
[2023-02-14 11:54] LABS: Basophils Absolute Auto 0.1 X10*3/uL (0.0-0.2); Basophils Percent Auto 0.8 % (0-2); Eosinophils Absolute Auto 0.2 X10*3/uL (0.0-0.4); Eosinophils Percent Auto 3.2 % (0-4); Hematocrit 39.6 % (37.0-47.0); Hemoglobin 13.4 g/dl (12.0-16.0); Imm Gran Abs Auto 0.02 X10*3/uL (0.00-0.03); Imm Gran Pct Auto 0.3 % (0.0-0.4); Lymphocytes Absolute Auto 0.9 X10*3/uL (1.2-4.9); Lymphocytes Percent Auto 14.8 % (20-40); Mean Corpuscular HGB Conc 33.8 g/dl (31.0-35.0); Mean Corpuscular Hemoglobin 36.3 pg (27.0-33.0); Mean Corpuscular Volume 107.3 fL (80.0-98.0); Mean Platelet Volume 11.7 fL (9.4-12.3); Monocytes Absolute Auto 0.4 X10*3/uL (0.1-1.2); Monocytes Percent Auto 5.6 % (2-11); Neutrophils Absolute Auto 4.7 x10*3/uL (2.0-8.3); Neutrophils Percent Auto 75.3 % (45-73); Platelet Count 149 X10*3/uL (160-400); Red Blood Count 3.69 X10*6/uL (4.20-5.50); Red Cell Distribution Width 14.6 % (11.0-16.0); White Blood Count 6.2 X10*3/uL (4.8-10.8)
[2023-02-14 11:58] LABS: Appearance Urine Cloudy; Color Urine Dark Yellow; Glucose Urine UA Negative (Negative); Leukocyte Esterase Urine Moderate (2+) (Negative); Nitrite Urine Positive (Negative); UMIC TRIGGER UACC YES; Urine Blood Negative (Negative); Urine Ketones Negative (Negative); Urine Protein Negative (Neg-Trace)
[2023-02-14 12:05] LABS: Bacteria Urine 4+ (None Seen); Hyaline Casts Urine 0-2 /LPF (0-2); RBC Urine 0-2 /HPF (0-2); Squamous Epithelial Cell Urine 0-2 /HPF (0-2); UACC Culture Trigger YES; WBC Urine >50 /HPF (0-5)
[2023-02-14 12:25] LABS: Alanine Aminotransferase 14 U/L (0-31); Albumin Level 3.8 g/dL (3.5-5.0); Alkaline Phosphatase 78 U/L (39-117); Anion Gap 11 (12-20); Aspartate Amino Transferase 16 U/L (5-31); Bilirubin Total 0.6 mg/dL (0.0-1.0); Blood Urea Nitrogen 15 mg/dL (9-16); Calcium 9.4 mg/dL (8.4-10.2); Carbon Dioxide 26 mmol/L (22-29); Chloride 110 mmol/L (96-108); Cholesterol 111 mg/dL (<200); Estimated Glomerular Filt Rate > 60; Glucose Fasting 103 mg/dL (60-99); HDL Cholesterol 43 mg/dL (>40); LDL Cholesterol Calculated 54 mg/dL (<100); Potassium 3.6 mmol/L (3.3-5.1); Sodium 143 mmol/L (135-145); Triglycerides 70 mg/dL (<150)
[2023-02-14 12:29] LABS: TSH reflex Free T4 0.03 uIU/mL (0.32-4.0); Vitamin D 25-OH Total 31.4 ng/mL (>30)
[2023-02-14 12:57] LABS: Estimated Average Glucose 100 mg/dL; Hemoglobin A1c % 5.1 % (<6.0)
[2023-02-14 13:00] LABS: Free T4 (Free Thyroxine) 1.53 ng/dL (0.71-1.85)
== END 2023-02-14 11:40 | disposition home or self-care (01) ==
LOC: HO.LNP 11:39
PROVIDERS: Visit Provider Internal Medicine
DX: E11.9 Type 2 diabetes mellitus without complications (principal); I10 Essential (primary) hypertension; E78.5 Hyperlipidemia, unspecified; E03.9 Hypothyroidism, unspecified; E55.9 Vitamin D deficiency, unspecified; R82.91 Other chromoabnormalities of urine
CPT/HCPCS: 80053; 80061; 81001; 82306; 83036; 84439; 84443; 85025; 87086; 87088; 87186

== ENCOUNTER 2023-03-04 09:37 | Outpatient (AMB) | payer MEDICARE, SELFPAY ==
--- NOTE | 2023-03-04 09:42 | A.OFFVIS_ITS ---
Intake Vital Signs 3 03/04/23 09:47 Height 5 ft 7 in Weight 145 lb 1.027 oz BMI 22.7 BP 124/68 Blood Pressure Location Lt brachial Position Sitting Intake Visit Reasons: 6 month follow up visit, breast exam Intake Note: Patient is seen in office for 6 month follow up visit, breast exam. Patient c/o: denies any concerns regarding the breast Account Assistant Required: No Chemical Manager: Chemical Manager Present Accompanied by: Self / Same As Patient Allergies codeine Allergy (Mild, Verified 03/04/23 09:43) Nausea and Vomiting oxycodone [From OxyContin] Allergy (Mild, Verified 03/04/23 09:43) Nausea and Vomiting HPI HPI Comments 2 History of Present Illness0 Details 72-year-old female patient returning for breast cancer follow-up examination. She was found to have 2 abnormal densities in the right breast on mammogram of 09/08/2019. Subsequent ultrasound guided core biopsy revealed invasive ductal carcinoma, ER/MI positive, HER2 Zacarias negative. She underwent a right breast lumpectomy with sentinel node biopsy on 09/15/2019. Pathology confirmed invasive ductal carcinoma, grade 2, multifocal with DCIS, intermediate grade, margins negative for invasive or in-situ cancer, 0 of 1 sentinel nodes with metastatic disease (pT1cN0 (sn)(i-)). She underwent radiation therapy at [facility] which was completed on 12/17/2019. She was started on letrozole 2.[address] Helton. Her last mammogram dated 07/11/2022 revealed no significant change from the prior mammogram (BI-RADS 2). REPLACED BY [facility] Medical History History of trigger finger AAA (abdominal aortic aneurysm) Presence of stent in artery Hypertension Diabetes High cholesterol Hypothyroid Invasive ductal carcinoma of right breast Surgical History History of lumpectomy of right breast (09/15/19) History of hysterectomy History of right knee surgery History of hernia repair History of cholecystectomy History of cataract surgery Family History Brother History of bladder cancer Brother History of bladder cancer Mother Diabetes Heart abnormality History of bladder cancer Pacemaker Father Stroke Heart attack Social History Household Members: Spouse Housing: House Are you a primary palliative care nurse to a significant other at home: No Do you presently have visiting nurse or other home services: No Alcohol intake: former Patient Tobacco Use Status: Current everyday Tobacco user Tobacco use type: Cigarette Cigarette Packs Per Day: 0.5 service: No Current occupational status: employed 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 [employer] Current occupational exposures/hazards: Yes (Stress) Sexual orientation: Straight/Heterosexual Gender identity: Female Female Reproductive History Menstrual Date of Mammogram: 07/11/22 Review of Systems Const Denies chills, Denies fever(s), Denies headache(s), Denies poor appetite and Reports weight loss ENT Denies dizziness and Denies headache(s) Card Denies chest pain, Denies rapid heart rate, Denies palpitations and Denies slow heart rate Resp Denies chest congestion, Denies cough, Denies pain on inspiration and Denies wheezing GI Denies abdominal pain, Denies bloating, Denies change in stool character, Denies constipation, Denies diarrhea, Denies nausea, Denies vomiting and Denies hematemesis Musc Denies back pain, Denies arthralgias, Denies joint swelling and Denies numbness Skin/Breast Denies breast swelling, Denies breast skin changes, Denies breast pain, Denies breast mass, Denies change in pigmentation, Denies erythema and Denies rash Neuro Denies dizziness, Denies headache(s) and Denies numbness Psych Denies anxiety and Denies depression Endo Denies palpitations Roque/Lymph Reports easy bleeding, Reports easy bruising and Denies lymphadenopathy Aller/Immun Denies wheezing Physical Exam Const General: no acute distress and well developed Nutritional Appearance: well nourished Orientation/consciousness: patient oriented x3 Limitations: no limitations HEENT Head: Yes normocephalic and Yes atraumatic Eyes Sclerae: sclerae normal Neck Other: no palpable supraclavicular or cervical lymph nodes Chest Other: right breast: Well-healed incision in the upper outer quadrant with some slight retraction of the incision. No palpable mass, new skin change other than radiation change, nipple retraction, nipple discharge, or enlarged lymph nodes. Left breast: No skin change, no nipple retraction, no nipple discharge, or no enlarged lymph nodes; palpable mass noted in the left breast at 03:00 o'clock location just lateral to the nipple-areolar complex measuring approximately 1 cm in diameter, mobile within the breast tissue. No overlying skin changes appreciated. No fixation to the chest wall. Chest/axillae images: 2 1. Palpable mass left breast, 3 o'clock position 2. Incision from prior lumpectomy upper outer quadrant right breast Resp Other: breathing comfortably on room air, no respiratory distress GI Inspection: Yes normal to inspection Skin Other: warm and dry, no rash Neuro General: patient oriented x3 Extrem Other: no edema in arm or hands, normal range of motion Assessment & Plan Assessment & Plan (1) Invasive ductal carcinoma of right breast: Code(s): C50.911 - Malignant neoplasm of unspecified site of right female breast (2) Left breast mass: Code(s): N63.20 - Unspecified lump in the left breast, unspecified quadrant Qualifiers: Breast mass location: upper outer quadrant Qualified Code(s): N63.21 - Unspecified lump in the left breast, upper outer quadrant Plan 72-year-old female patient status post right breast lumpectomy with sentinel node biopsy for invasive ductal carcinoma right breast, ER/MI positive, HER2 Zacarias negative with negative margins and 0 of 2 sentinel nodes with metastatic disease performed on 09/15/2019. She completed radiation therapy in December 2019 and is now on letrozole 2.5 mg q.day. Her most recent mammogram of 07/11/2022 reveals no significant changes from prior mammogram, post therapy changes identified (BI- RADS 2). Examination today reveals a new palpable mass in the left breast at the 03:00 o'clock location as noted above. Finding is suspicious of a new left breast carcinoma. I recommended further workup with diagnostic mammogram and ultrasound. I will call her with the results of the study. She will also follow up in 6 months for routine breast examination. Orders: Orders 2 MM diagnostic mammo unilat LT Today C50.911 - Malignant neoplasm of unspecified site of right female breast, N63.20 - Unspecified lump in the left breast, unspecified quadrant US breast LT limited Today C50.911 - Malignant neoplasm of unspecified site of right female breast, N63.20 - Unspecified lump in the left breast, unspecified quadrant Coding Level of Care Code Est Pt Level 3 (00657) Diagnoses Invasive ductal carcinoma of right breast C50.911 Mass of upper outer quadrant of left breast N63.21 Breast mass location: upper outer quadrant
[2023-03-04 09:47] VITALS: BP 124/68; BMI 22.7
== END 2023-03-04 10:00 | disposition home or self-care (01) ==
PROVIDERS: PCP Internal Medicine; Visit Provider Surgery
DX: C50.911 Malignant neoplasm of unspecified site of right female breast (principal); N63.21 Unspecified lump in the left breast, upper outer quadrant
CPT/HCPCS: 99213

== ENCOUNTER → 2023-03-04 09:37 | Outpatient (BNVA) | payer MEDICARE, SELFPAY | PROVIDERS: PCP Internal Medicine; Visit Provider Surgery | DX: N63.21 Unspecified lump in the left breast, upper outer quadrant (principal); C50.911 Malignant neoplasm of unspecified site of right female breast; Z17.0 Estrogen receptor positive status [ER+]; Z92.3 Personal history of irradiation; Z79.811 Long term (current) use of aromatase inhibitors | CPT/HCPCS: 99212 ==

== ENCOUNTER 2023-03-31 14:36 | Outpatient (REF) | payer MEDICARE, SELFPAY ==
--- NOTE | ~2023-03-31 | US_ITS ---
EXAMINATION: MM DIAGNOSTIC DIGITAL BREAST TOMOSYNTHESIS, LEFT US BREAST LIMITED, LEFT MAMMOGRAPHY: CLINICAL INFORMATION: Patient presents for a newly palpable mass in the 3:00 region of the left breast, just lateral to the areola. According to the referring clinician, the mass measures approximately 1 cm in diameter. The patient had dark blood coming out of her nipple during the mammogram today. She also indicated that at the time of last mammogram in July 2002, there was also dark blood coming out of the nipple. This represents-induced bloody nipple discharge. COMPARISON: Mammography: This study is compared with prior mammograms dating back to 2016. TECHNIQUE: Digital breast tomosynthesis is performed in both the craniocaudal and mediolateral oblique views along with computer-aided detection (CAD). Synthesized 2D images are generated from the tomosynthesis. A full lateral view of the left breast was performed. FINDINGS: The breasts are heterogeneously dense, which may obscure small masses (ACR BI-RADS breast composition Category c). There is long-standing ductal ectasia involving the retroareolar region and anterior half of the superior aspect of the left breast. This appears to have increased in degree somewhat over a long period of time, particularly in the lateral aspect of the left breast. Overall the areas of ductal ectasia in the superior aspect of the left breast measure over 7 cm. There are numerous coarse calcifications throughout the anterior two thirds of the left breast. This occurs above and below the posterior nipple line. No discrete suspicious mass is evident by mammography. There is no architectural distortion. ULTRASOUND: CLINICAL INFORMATION: Newly palpable mass in the 3:00 region of the left breast, COMPARISON: None TECHNIQUE: Targeted sonographic evaluation was performed using a high frequency linear transducer. Selected archived documentation. FINDINGS: LEFT BREAST: Sonography of the subareolar region of the left breast reveals numerous dilated ducts, some containing echogenic debris which is not hypervascular. Numerous calcifications are also present, corresponding to the calcifications on the mammogram. These do not appear to be within the ducts on sonography. US/US breast LT limited mamm only IMPRESSION: Extensive ductal ectasia and calcification in the left breast as described above. This occurs in a patient who has dark blood arising from the nipple during 2 separate instances at mammography in less than a year. Blood coming from the nipple should never be considered normal, especially particularly in a patient with clinically palpable mass and a history of contralateral breast cancer. Further clinical evaluation is advised with the patient's palpable lump and bloody induced nipple discharge. Breast MRI is advised in the setting of a clinically palpable mass with no mammographic or sonographic correlate and blood arising from the nipple. I have discussed the above findings and recommendations with the patient and encouraged her to follow up with her referring clinician. OVERALL ASSESSMENT: Mammography: BI-RADS 0 - Incomplete: Needs additional Imaging. RECOMMENDATION: Additional Imaging required Clinical follow-up and breast MRI is advised. Results were provided to the patient at time of visit by the technologist. This patient's information was entered into a reminder system with a target due date for their next mammogram.
== END 2023-03-31 14:37 | disposition home or self-care (01) ==
LOC: HO.MAMMO 14:36
PROVIDERS: PCP Internal Medicine; Visit Provider Surgery
DX: N63.25 Unspecified lump in the left breast, overlapping quadrants (principal)
CPT/HCPCS: 76642; 77061; 77065

== ENCOUNTER → 2023-03-31 15:30 | Outpatient (BNV) | payer MEDICARE, SELFPAY | PROVIDERS: PCP Internal Medicine; Visit Provider Radiology Diagnostic Radiology | DX: N64.52 Nipple discharge (principal); R92.1 Mammographic calcification found on diagnostic imaging of breast; N60.42 Mammary duct ectasia of left breast | CPT/HCPCS: 76642; 77061; 77065; G0279 ==

== ENCOUNTER 2023-04-24 13:03 | Outpatient (AMB) | payer MEDICARE, SELFPAY ==
[2023-04-24 13:10] VITALS: BP 160/76; PULSE 76
--- NOTE | 2023-04-24 13:10 | A.OFFVIS_ITS ---
Intake Vital Signs 04/24/23 13:10 Weight 145 lb BP 160/76 H Blood Pressure Location Rt brachial Position Sitting Pulse 76 Intake Visit Reasons: Left breast mass, MRI results Intake Note: Patient is seen in office for breast MRI results, following left breast mass. Reports no new concerns. MRI Shileds: 04/14/23 Test Eng Required: No Accompanied by: Self / Same As Patient Allergies codeine Allergy (Mild, Verified 04/24/23 13:12) Nausea and Vomiting oxycodone [From OxyContin] Allergy (Mild, Verified 04/24/23 13:12) Nausea and Vomiting HPI HPI Comments History of Present Illness Details 72-year-old female patient returning for breast cancer follow-up exami [facility], [place]. She was found to have 2 abnormal densities in the right breast on mammogram of 09/08/2019. Subsequent ultrasound guided core biopsy revealed invasive ductal carcinoma, ER/SC positive, HER2 Zacarias negative. She underwent a right breast lumpectomy with sentinel node biopsy on 09/15/2019. Pathology confirmed invasive ductal carcinoma, grade 2, multifocal with DCIS, intermediate grade, margins negative for invasive or in-situ cancer, 0 of 1 sentinel nodes with metastatic disease (pT1cN0 (sn)(i-)). She underwent radiation therapy at [facility] which was completed on 12/17/2019. She was started on letrozole 2.[address] Helton. On her previous visit she was noted to have a palpable mass in the left breast in the subareolar location approximately the 3 o'clock position. She was subsequently sent for a diagnostic mammogram and ultrasound. This was performed on 03/31/2023 and revealed extensive ductal ectasia in the left breast corresponding to the region of abnormality. Breast MRI was recommended and the this was subsequently obtained at [place] on 04/14/2023. The breast MRI revealed bilateral areas of non-mass enhancement for which biopsy was recommended. Was also recommended to excise the palpable breast lesion as well. Findings were discussed in detail with the patient today. The patient reports having multiple stressors including the need to move her apartment after her . [facility] Medical History History of trigger finger AAA (abdominal aortic aneurysm) Presence of stent in artery Hypertension Diabetes High cholesterol Hypothyroid Invasive ductal carcinoma of right breast Surgical History History of lumpectomy of right breast (09/15/19) History of hysterectomy History of right knee surgery History of hernia repair History of cholecystectomy History of cataract surgery Family History Brother History of bladder cancer Brother History of bladder cancer Mother Diabetes Heart abnormality History of bladder cancer Pacemaker Father Stroke Heart attack Social History Household Members: Spouse Housing: House Are you a primary critical care registered nurse to a significant other at home: No Do you presently have visiting nurse or other home services: No Alcohol intake: former Patient Tobacco Use Status: Current everyday Tobacco user Tobacco use type: Cigarette Cigarette Packs Per Day: 0.5 service: No Current occupational status: employed 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 [employer] Current occupational exposures/hazards: Yes (Stress) Sexual orientation: Straight/Heterosexual Gender identity: Female Review of Systems Const Denies chills, Denies fever(s), Denies headache(s), Denies poor appetite and Reports weight loss ENT Denies dizziness and Denies headache(s) Card Denies chest pain, Denies rapid heart rate, Denies palpitations and Denies slow heart rate Resp Denies chest congestion, Denies cough, Denies pain on inspiration and Denies wheezing GI Denies abdominal pain, Denies bloating, Denies change in stool character, Denies constipation, Denies diarrhea, Denies nausea, Denies vomiting and Denies hematemesis Musc Denies back pain, Denies arthralgias, Denies joint swelling and Denies numbness Skin/Breast Denies breast swelling, Denies breast skin changes, Denies breast pain, Denies breast mass, Denies change in pigmentation, Denies erythema and Denies rash Neuro Denies dizziness, Denies headache(s) and Denies numbness Psych Denies anxiety and Denies depression Endo Denies palpitations Roque/Lymph Reports easy bleeding, Reports easy bruising and Denies lymphadenopathy Aller/Immun Denies wheezing Physical Exam Vital Signs: Last Vital Signs Pulse 76 04/24/23 13:10 BP 160/76 H 04/24/23 13:10 Const General: no acute distress and well developed Nutritional Appearance: well nourished Orientation/consciousness: patient oriented x3 Limitations: no limitations HEENT Head: Yes normocephalic and Yes atraumatic Eyes Sclerae: sclerae normal Neck Other: no palpable supraclavicular or cervical lymph nodes Chest Other: Exam deferred Resp Other: breathing comfortably on room air, no respiratory distress GI Inspection: Yes normal to inspection Skin Other: warm and dry, no rash Neuro General: patient oriented x3 Extrem Other: no edema in arm or hands, normal range of motion Assessment & Plan Assessment & Plan (1) Invasive ductal carcinoma of right breast: Code(s): C50.911 - Malignant neoplasm of unspecified site of right female breast (2) Left breast mass: Code(s): N63.20 - Unspecified lump in the left breast, unspecified quadrant Qualifiers: Breast mass location: upper outer quadrant Qualified Code(s): N63.21 - Unspecified lump in the left breast, upper outer quadrant Plan 72-year-old female patient status post right breast lumpectomy with sentinel node biopsy for invasive ductal carcinoma right breast, ER/SC positive, HER2 Zacarias negative with negative margins and 0 of 2 sentinel nodes with metastatic disease performed on 09/15/2019. She completed radiation therapy in December 2019 and is now on letrozole 2.5 mg q.day. Findings of the recent mammogram and breast MRI were reviewed in detail with the patient. I recommended proceeding with a bilateral breast MRI biopsy to be performed at [place]. Further management of the palpable breast mass we based on findings of this biopsy. Orders: Orders MR guided breast biopsy RT 04/24/23 R92.8 - Other abnormal and inconclusive findings on diagnostic imaging of breast MR guided breast biopsy LT 04/24/23 R92.8 - Other abnormal and inconclusive findings on diagnostic imaging of breast Coding Level of Care Code Est Pt Level 3 (30921) Diagnoses Invasive ductal carcinoma of right breast C50.911 Mass of upper outer quadrant of left breast N63.21 Breast mass location: upper outer quadrant
== END 2023-04-24 13:31 | disposition home or self-care (01) ==
PROVIDERS: PCP Internal Medicine; Visit Provider Surgery
DX: C50.911 Malignant neoplasm of unspecified site of right female breast (principal); N63.21 Unspecified lump in the left breast, upper outer quadrant
CPT/HCPCS: 99213

== ENCOUNTER → 2023-04-24 13:03 | Outpatient (BNVA) | payer MEDICARE, SELFPAY | PROVIDERS: PCP Internal Medicine; Visit Provider Surgery | DX: N63.25 Unspecified lump in the left breast, overlapping quadrants (principal); C50.911 Malignant neoplasm of unspecified site of right female breast | CPT/HCPCS: 99212 ==

== ENCOUNTER 2023-05-13 13:12 | Outpatient (AMB) | payer MEDICARE, SELFPAY ==
--- NOTE | 2023-05-13 13:27 | MHC.OFFVIS ---
Intake Intake Visit Reasons: Abnormal MRI, BI breast biopsy results Allergies codeine Allergy (Mild, Verified 04/24/23 13:12) Nausea and Vomiting oxycodone [From OxyContin] Allergy (Mild, Verified 04/24/23 13:12) Nausea and Vomiting PFSH Medical History History of trigger finger AAA (abdominal aortic aneurysm) Presence of stent in artery Hypertension Diabetes High cholesterol Hypothyroid Invasive ductal carcinoma of right breast Surgical History History of lumpectomy of right breast (09/15/19) History of hysterectomy History of right knee surgery History of hernia repair History of cholecystectomy History of cataract surgery Family History Brother History of bladder cancer Brother History of bladder cancer Mother Diabetes Heart abnormality History of bladder cancer Pacemaker Father Stroke Heart attack Social History Household Members: Spouse Housing: House Are you a primary residential care officer to a significant other at home: No Do you presently have visiting nurse or other home services: No Alcohol intake: former Patient Tobacco Use Status: Current everyday Tobacco user Tobacco use type: Cigarette Cigarette Packs Per Day: 0.5 service: No Current occupational status: employed 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
--- NOTE | 2023-05-13 13:28 | MHC.OFFVIS ---
Intake Vital Signs 05/13/23 13:32 Height 5 ft 7 in Weight 145 lb 0.004 oz BMI 22.7 BP 122/58 L Blood Pressure Location Rt brachial Position Sitting Pulse 81 Intake Visit Reasons: Abnormal MRI, BI breast biopsy results Intake Note: This patient presents for a follow-up assessment for abnormal MRI, BI breast biopsy results. Patient c/o; reports no complaints or changes at this time. Readiness Paraprofessional Required: No Accompanied by: Self / Same As Patient Allergies codeine Allergy (Mild, Verified 05/13/23 13:33) Nausea and Vomiting oxycodone [From OxyContin] Allergy (Mild, Verified 05/13/23 13:33) Nausea and Vomiting HPI HPI Comments History of Present Illness Details Patient presents for follow-up status post bilateral breast biopsies. She has no wound issues or complaints aside from ecchymosis of the left breast. Both pathology reports are benign. [facility] Medical History History of trigger finger AAA (abdominal aortic aneurysm) Presence of stent in artery Hypertension Diabetes High cholesterol Hypothyroid Invasive ductal carcinoma of right breast Surgical History History of lumpectomy of right breast (09/15/19) History of hysterectomy History of right knee surgery History of hernia repair History of cholecystectomy History of cataract surgery Family History Brother History of bladder cancer Brother History of bladder cancer Mother Diabetes Heart abnormality History of bladder cancer Pacemaker Father Stroke Heart attack Social History Household Members: Spouse Housing: House Are you a primary manager managed care to a significant other at home: No Do you presently have visiting nurse or other home services: No Alcohol intake: former Patient Tobacco Use Status: Current everyday Tobacco user Tobacco use type: Cigarette Cigarette Packs Per Day: 0.5 service: No Current occupational status: employed 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 Right breast has some dependent ecchymosis but otherwise within normal limits. Assessment & Plan Assessment & Plan (1) Abnormal magnetic resonance imaging of breast, bilateral: Code(s): R92.8 - Other abnormal and inconclusive findings on diagnostic imaging of breast (2) Left breast mass: Code(s): N63.20 - Unspecified lump in the left breast, unspecified quadrant Qualifiers: Breast mass location: upper outer quadrant Qualified Code(s): N63.21 - Unspecified lump in the left breast, upper outer quadrant Plan Current plan is to encourage patient to self-breast exams q.month. She is scheduled for a six-month postprocedure biopsy and will be scheduled for follow-up with Dr. Arenas at that visit. All questions answered. Patient otherwise follow-up as directed or p.r.n.. Coding Level of Care Code Est Pt Level 4 (71459) Diagnoses Abnormal magnetic resonance imaging of breast, bilateral R92.8 Mass of upper outer quadrant of left breast N63.21 Breast mass location: upper outer quadrant
[2023-05-13 13:32] VITALS: BP 122/58; PULSE 81; BMI 22.7
== END 2023-05-13 13:45 | disposition home or self-care (01) ==
PROVIDERS: PCP Internal Medicine; Visit Provider Surgery
DX: R92.8 Other abnormal and inconclusive findings on diagnostic imaging of breast (principal); N63.21 Unspecified lump in the left breast, upper outer quadrant
CPT/HCPCS: 99213

== ENCOUNTER → 2023-05-13 13:12 | Outpatient (BNVA) | payer MEDICARE, SELFPAY | PROVIDERS: PCP Internal Medicine; Visit Provider Surgery | DX: N63.21 Unspecified lump in the left breast, upper outer quadrant (principal); R92.8 Other abnormal and inconclusive findings on diagnostic imaging of breast | CPT/HCPCS: 99212 ==

== ENCOUNTER 2023-05-26 10:43 | Outpatient (REF) | payer MEDICARE, SELFPAY ==
[2023-05-26 11:26] LABS: TSH reflex Free T4 0.27 uIU/mL (0.32-4.0)
[2023-05-26 14:00] LABS: Free T4 (Free Thyroxine) 1.18 ng/dL (0.71-1.85)
== END 2023-05-26 10:44 | disposition home or self-care (01) ==
LOC: HO.LNP 10:43
PROVIDERS: Visit Provider Internal Medicine
DX: E03.9 Hypothyroidism, unspecified (principal)
CPT/HCPCS: 84439; 84443

== ENCOUNTER 2023-07-17 11:10 | Outpatient (REF) | payer MEDICARE, SELFPAY | END 2023-07-17 11:11 | disposition home or self-care (01) | LOC: HO.MAMMO 11:10 | PROVIDERS: PCP Internal Medicine; Visit Provider Surgery | DX: Z13.89 Encounter for screening for other disorder (principal) ==

== ENCOUNTER 2023-08-06 12:36 | Outpatient (AMB) | payer MEDICARE, SELFPAY ==
--- NOTE | 2023-08-06 12:42 | A.OFFVIS_ITS ---
Intake Vital Signs 3 08/06/23 12:47 Height 5 ft 7 in Weight 151 lb BMI 23.6 BP 122/60 Blood Pressure Location Rt brachial Position Sitting Pulse 73 Intake Visit Reasons: Wound leg Intake Note: This patient presents for an assessment for wound of the left leg. Patient c/o; Onset 1 month, reports no draining, scabbing and minimal redness. Ballet Soloist Required: No Accompanied by: Self / Same As Patient Allergies codeine Allergy (Mild, Verified 08/06/23 12:46) Nausea and Vomiting oxycodone [From OxyContin] Allergy (Mild, Verified 08/06/23 12:46) Nausea and Vomiting Medication List - Last Reconciled 08/06/23 by Tico Arenas MD apixaban (Eliquis) 2.5 mg PO BID aspirin (Adult Aspirin Regimen) 81 mg PO DAILY atorvastatin 80 mg PO DAILY blood sugar diagnostic As directed cholecalciferol (vitamin D3) (Vitamin D3) 25 mcg PO DAILY folic acid 1 mg PO DAILY insulin glargine (Lantus Solostar U-100 Insulin) 40 units subcut BEDTIME insulin lispro (Humalog KwikPen (U-100) Insulin) 4 - 12 units subcut TID letrozole 2.5 mg PO DAILY levothyroxine 175 mcg PO DAILY lisinopril 20 mg PO DAILY pen needle, diabetic As directed trazodone 50 mg PO BEDTIME HPI HPI Comments 2 History of Present Illness0 Details Alla returns today for evaluation of a right lower leg injury. She reports striking the porras with a car door resulting in a laceration and hematoma. The injury occurred approximately a month ago. She has been applying sterile dressings but now she has a residual black eschar at the site of the hematoma. She denies any bleeding or discharge currently. There is no pain associated with the injury. She reports awaiting a knee replacement next month in the left knee. She is due for her mammogram in 11/10/2023 and will be following up for breast examination after that. [facility] Medical History History of trigger finger AAA (abdominal aortic aneurysm) Presence of stent in artery Hypertension Diabetes High cholesterol Hypothyroid Invasive ductal carcinoma of right breast Surgical History History of lumpectomy of right breast (09/15/19) History of hysterectomy History of right knee surgery History of hernia repair History of cholecystectomy History of cataract surgery Family History Brother History of bladder cancer Brother History of bladder cancer Mother Diabetes Heart abnormality History of bladder cancer Pacemaker Father Stroke Heart attack Social History Household Members: Spouse Housing: House Are you a primary healthcare network pricing consultant to a significant other at home: No Do you presently have visiting nurse or other home services: No Alcohol intake: former Patient Tobacco Use Status: Current everyday Tobacco user Tobacco use type: Cigarette Cigarette Packs Per Day: 0.5 service: No Current occupational status: employed 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 [employer] Current occupational exposures/hazards: Yes (Stress) Sexual orientation: Straight/Heterosexual Gender identity: Female Review of Systems Const Denies chills, Denies fever(s), Denies headache(s), Denies poor appetite and Reports weight loss ENT Denies dizziness and Denies headache(s) Card Denies chest pain, Denies rapid heart rate, Denies palpitations and Denies slow heart rate Resp Denies chest congestion, Reports cough, Denies pain on inspiration and Denies wheezing GI Denies abdominal pain, Denies bloating, Denies change in stool character, Denies constipation, Denies diarrhea, Denies nausea, Denies vomiting and Denies hematemesis Musc Denies back pain, Reports arthralgias, Reports joint swelling (Left knee) and Denies numbness Skin/Breast Denies breast swelling, Denies breast skin changes, Denies breast pain, Denies breast mass, Denies change in pigmentation, Denies erythema and Denies rash Neuro Denies dizziness, Denies headache(s) and Denies numbness Psych Denies anxiety and Denies depression Endo Denies palpitations Roque/Lymph Reports easy bleeding, Reports easy bruising and Denies lymphadenopathy Aller/Immun Denies wheezing Physical Exam Vital Signs: Last Vital Signs Pulse 73 08/06/23 12:47 BP 122/60 08/06/23 12:47 BMI result Body Mass Index 23.6 Const General: no acute distress Nutritional Appearance: well nourished Orientation/consciousness: patient oriented x3 Resp Effort & Inspection: normal respiratory effort, no audible wheezes and no respiratory distress GI Inspection: Yes normal to inspection Neuro General: patient oriented x3 Extrem Other: Left lower extremity as noted below Upper/lower leg/hip images: 2 1. 3 x 2 cm eschar which appears to be lifting with new epithelium below this. No surrounding erythema or underlying hematoma appreciated. No evidence of ongoing infection. Assessment & Plan Assessment & Plan (1) Blunt trauma of left lower leg: Code(s): S89.92XA - Unspecified injury of left lower leg, initial encounter Qualifiers: Encounter type: initial encounter Qualified Code(s): S89.92XA - Unspecified injury of left lower leg, initial encounter Plan 73-year-old female patient well known to service with prior history of breast cancer presenting with a traumatic injury to the left leg after striking leg with car. Patient was found to have a dry eschar with no evidence of infection which should naturally lift over time. No debridement is recommended at this time. She is welcome to call should the wound develop increased pain, redness or discharge. She will follow-up for breast examination after her November mammogram. Coding Level of Care Code Est Pt Level 3 (59136) Diagnoses Blunt trauma of left lower leg, initial encounter S89.92XA Encounter type: initial encounter
[2023-08-06 12:47] VITALS: BP 122/60; PULSE 73; BMI 23.6
== END 2023-08-06 12:55 | disposition home or self-care (01) ==
PROVIDERS: PCP Internal Medicine; Visit Provider Surgery
DX: S89.92XA Unspecified injury of left lower leg, initial encounter (principal)
CPT/HCPCS: 99213

== ENCOUNTER → 2023-08-06 12:36 | Outpatient (BNVA) | payer MEDICARE, SELFPAY | PROVIDERS: PCP Internal Medicine; Visit Provider Surgery | DX: S81.812D Laceration without foreign body, left lower leg, subsequent encounter (principal); W22.8XXD Striking against or struck by other objects, subsequent encounter | CPT/HCPCS: 99212 ==

== ENCOUNTER 2023-08-25 11:06 | Outpatient (REF) | payer MEDICARE, SELFPAY ==
[2023-08-25 11:54] LABS: Estimated Average Glucose 105 mg/dL; Hemoglobin A1c % 5.3 % (<6.0)
[2023-08-25 12:03] LABS: Alanine Aminotransferase 14 U/L (0-31); Albumin Level 3.7 g/dL (3.5-5.0); Alkaline Phosphatase 85 U/L (39-117); Aspartate Amino Transferase 17 U/L (5-31); Bilirubin Direct 0.2 mg/dL (0.0-0.5); Bilirubin Total 0.4 mg/dL (0.0-1.0); Cholesterol 111 mg/dL (<200); Glucose Fasting 110 mg/dL (60-99); HDL Cholesterol 40 mg/dL (>40); LDL Cholesterol Calculated 54 mg/dL (<100); Total Protein 7.2 g/dL (6.5-8.0); Triglycerides 85 mg/dL (<150)
[2023-08-25 12:42] LABS: Reflex LDLD? No
== END 2023-08-25 11:07 | disposition home or self-care (01) ==
LOC: HO.LNP 11:06
PROVIDERS: Visit Provider Internal Medicine
DX: E11.9 Type 2 diabetes mellitus without complications (principal); E78.5 Hyperlipidemia, unspecified
CPT/HCPCS: 80061; 80076; 82947; 83036

== ENCOUNTER 2024-01-27 13:13 | Outpatient (REF) | payer MEDICARE, SELFPAY ==
--- NOTE | ~2024-01-27 | MM_ITS ---
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 Bilateral MRI guided benign breast biopsies at [facility] in April 2023. Also Due for yearly. COMPARISON: Mammography: 03/31/2023 left, 07/11/2022 bilateral, 06/21/2021, 06/14/2020, and dating back to 08/27/2019. MRI breasts and breast biopsies bilaterally (benign, [facility], April 2023). TECHNIQUE: Digital breast tomosynthesis is performed in both the craniocaudal and mediolateral oblique views along with computer-aided detection (CAD). Synthesized 2D images are generated from the tomosynthesis. In addition, an added right full-field CC view was obtained, and a full-field 3-D left mediolateral view was also obtained. FINDINGS: The breasts are heterogeneously dense, which may obscure small masses (ACR BI-RADS breast composition Category c). There are stable post lumpectomy changes in the upper outer right breast, with stable appearing right breast mild trabecular and skin thickening from treatment related changes. There are innumerable benign calcified oil cysts in both breasts. There are no suspicious grouped calcifications in either breast. Post benign biopsy marker is noted in both breasts from benign bilateral MR biopsy. Extensive duct ectasia present in both breasts in the retroareolar regions. An asymmetry in the superior outer left breast overlying the pectoralis is consistent with a lymph node which was previously seen in 2019. No suspicious masses or new areas of architectural distortion are present in either breast. MM/MM tomosynthesis diagnostic BI IMPRESSION: -No evidence of malignancy in either breast. -Stable benign findings in both breasts as discussed above. -Recommend the patient resume routine annual screening to include both breasts. ASSESSMENT: BI-RADS BI-RADS 2 - Benign Findings RECOMMENDATION: 1 year F/U Results were provided to the patient at time of visit by the technologist. This patient's information was entered into a reminder system with a target due date for their next mammogram.
== END 2024-01-27 13:14 | disposition home or self-care (01) ==
LOC: HO.MAMMO 13:13
PROVIDERS: PCP Internal Medicine; Visit Provider Surgery
DX: R92.8 Other abnormal and inconclusive findings on diagnostic imaging of breast (principal); N63.21 Unspecified lump in the left breast, upper outer quadrant
CPT/HCPCS: 77062; 77066

== ENCOUNTER 2024-02-03 09:21 | Outpatient (AMB) | payer MEDICARE, SELFPAY ==
--- NOTE | 2024-02-03 09:22 | MHC.OFFVIS ---
Vital Signs 02/03/24 09:31 Height 5 ft 7 in Weight 153 lb BMI 24.0 BP 128/71 Blood Pressure Location Lt brachial Position Sitting Pulse 73 Intake Visit Reasons: mammo follow-up, 6 month breast exam Intake Note: Patient is seen in office for 6 month follow up visit, breast exam. Patient c/o: denies any mm:01/27/24 MRI:05/05/23 DUE Allergies codeine Allergy (Mild, Verified 01/02/24 10:26) Nausea and Vomiting oxycodone [From OxyContin] Allergy (Mild, Verified 01/02/24 10:26) Nausea and Vomiting Medication List - Last Reconciled 02/03/24 by Tico Arenas MD apixaban (Eliquis) 2.5 mg PO BID aspirin (Adult Aspirin Regimen) 81 mg PO DAILY atorvastatin 80 mg PO DAILY cholecalciferol (vitamin D3) (Vitamin D3) 25 mcg PO DAILY folic acid 1 mg PO DAILY letrozole 2.5 mg PO DAILY levothyroxine 175 mcg PO DAILY lisinopril 20 mg PO DAILY pen needle, diabetic As directed trazodone 50 mg PO BEDTIME HPI Comments Details: 73-year-old female patient returning for breast cancer follow-up examination. She was found to have 2 abnormal densities in the right breast on mammogram of 09/08/2019. Subsequent ultrasound guided core biopsy revealed invasive ductal carcinoma, ER/NJ positive, HER2 Zacarias negative. She underwent a right breast lumpectomy with sentinel node biopsy on 09/15/2019. Pathology confirmed invasive ductal carcinoma, grade 2, multifocal with DCIS, intermediate grade, margins negative for invasive or in-situ cancer, 0 of 1 sentinel nodes with metastatic disease (pT1cN0 (sn)(i-)). She underwent radiation therapy at [facility] which was completed on 12/17/2019. She was started on letrozole 2.[address] Helton. On her previous visit she was noted to have a palpable mass in the left breast in the subareolar location approximately the 3 o'clock position. She was subsequently sent for a diagnostic mammogram and ultrasound. This was performed on 03/31/2023 and revealed extensive ductal ectasia in the left breast corresponding to the region of abnormality. Breast MRI was recommended and the this was subsequently obtained at [place] on 04/14/2023. The breast MRI revealed bilateral areas of non-mass enhancement for which biopsy was recommended. She underwent biopsy which revealed no atypia or malignancy. Her most recent mammogram of 01/27/2024 revealed no mammographic evidence of malignancy (BI-RADS 2). She is now due for a follow-up breast MRI six-month follow-up. [facility] Medical History History of trigger finger AAA (abdominal aortic aneurysm) Presence of stent in artery Hypertension Diabetes High cholesterol Hypothyroid Invasive ductal carcinoma of right breast Surgical History H/O left knee surgery History of lumpectomy of right breast (09/15/19) History of hysterectomy History of right knee surgery History of hernia repair History of cholecystectomy History of cataract surgery Family History Brother History of bladder cancer Brother History of bladder cancer Mother Diabetes Heart abnormality History of bladder cancer Pacemaker Father Stroke Heart attack Social History Household Members: Spouse Housing: House Are you a primary home health care case manager to a significant other at home: No Do you presently have visiting nurse or other home services: No Alcohol intake: former Patient Tobacco Use Status: Current everyday Tobacco user Tobacco use type: Cigarette Cigarette Packs Per Day: 0.5 service: No Current occupational status: employed 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 [employer] Current occupational exposures/hazards: Yes (Stress) Sexual orientation: Straight/Heterosexual Gender identity: Female Review of Systems Const Denies chills, Denies fever(s), Denies headache(s), Denies poor appetite and Reports weight loss ENT Denies dizziness and Denies headache(s) Card Denies chest pain, Denies rapid heart rate, Denies palpitations and Denies slow heart rate Resp Denies chest congestion, Reports cough, Denies pain on inspiration and Denies wheezing GI Denies abdominal pain, Denies bloating, Denies change in stool character, Denies constipation, Denies diarrhea, Denies nausea, Denies vomiting and Denies hematemesis Musc Denies back pain, Reports arthralgias, Reports joint swelling (Left knee) and Denies numbness Skin/Breast Denies breast swelling, Denies breast skin changes, Denies breast pain, Denies breast mass, Denies change in pigmentation, Denies erythema and Denies rash Neuro Denies dizziness, Denies headache(s) and Denies numbness Psych Denies anxiety and Denies depression Endo Denies palpitations Roque/Lymph Reports easy bleeding, Reports easy bruising and Denies lymphadenopathy Aller/Immun Denies wheezing Physical Exam Vital Signs: Last Vital Signs Pulse 73 02/03/24 09:31 BP 128/71 02/03/24 09:31 BMI result Body Mass Index 24.0 Const General: no acute distress and well developed Nutritional Appearance: well nourished Orientation/consciousness: patient oriented x3 Limitations: no limitations HEENT Head: Yes normocephalic and Yes atraumatic Eyes Sclerae: sclerae normal Neck Other: no palpable supraclavicular or cervical lymph nodes Chest Other: right breast: Well-healed incision in the upper outer quadrant with some slight retraction of the incision. No palpable mass, new skin change other than radiation change, nipple retraction, nipple discharge, or enlarged lymph nodes. Left breast: No skin change, no nipple retraction, no nipple discharge, or no enlarged lymph nodes; palpable mass noted in the left breast at 03:00 o'clock location just lateral to the nipple-areolar complex measuring approximately 1 cm in diameter, mobile within the breast tissue. No overlying skin changes appreciated. No fixation to the chest wall. Resp Other: breathing comfortably on room air, no respiratory distress GI Inspection: Yes normal to inspection Skin Other: warm and dry, no rash Neuro Other: Mobility Assessment: 1. 3 meter assessment time (seconds) 6 2. Gait observations: Normal balance and gait General: patient oriented x3 Extrem Other: no edema in arm or hands, normal range of motion Assessment & Plan Assessment & Plan (1) Invasive ductal carcinoma of right breast: Code(s): C50.911 - Malignant neoplasm of unspecified site of right female breast Category: Medical (2) Left breast mass: Code(s): N63.20 - Unspecified lump in the left breast, unspecified quadrant Category: Surgical Qualifiers: Breast mass location: upper outer quadrant Qualified Code(s): N63.21 - Unspecified lump in the left breast, upper outer quadrant Plan 73-year-old female patient status post right breast lumpectomy with sentinel node biopsy for invasive ductal carcinoma right breast, ER/NJ positive, HER2 Zacarias negative with negative margins and 0 of 2 sentinel nodes with metastatic disease performed on 09/15/2019. She completed radiation therapy in December 2019 and is now on letrozole 2.5 mg q.day. Her most recent mammogram of 01/27/2024 revealed no mammographic evidence of malignancy (BI-RADS 2). She will be scheduled for follow-up MRI following bilateral MRI guided biopsies. Coding Level of Care Code Est Pt Level 3 (85644) Diagnoses Invasive ductal carcinoma of right breast C50.911 Mass of upper outer quadrant of left breast N63.21 Breast mass location: upper outer quadrant
[2024-02-03 09:31] VITALS: BP 128/71; PULSE 73; BMI 24.0
== END 2024-02-03 10:08 | disposition home or self-care (01) ==
PROVIDERS: PCP Internal Medicine; Visit Provider Surgery
DX: C50.911 Malignant neoplasm of unspecified site of right female breast (principal); N63.21 Unspecified lump in the left breast, upper outer quadrant
CPT/HCPCS: 99213

== ENCOUNTER → 2024-02-03 09:21 | Outpatient (BNVA) | payer MEDICARE, SELFPAY | PROVIDERS: PCP Internal Medicine; Visit Provider Surgery | DX: C50.911 Malignant neoplasm of unspecified site of right female breast (principal); N63.21 Unspecified lump in the left breast, upper outer quadrant | CPT/HCPCS: 99212 ==

== ENCOUNTER 2024-02-19 11:22 | Outpatient (REF) | payer MEDICARE, SELFPAY ==
[2024-02-19 11:28] LABS: MANUAL DIFF FLAG NO
[2024-02-19 12:10] LABS: Basophils Absolute Auto 0.1 X10*3/uL (0.0-0.2); Basophils Percent Auto 1.2 % (0-2); Eosinophils Absolute Auto 0.3 X10*3/uL (0.0-0.4); Hematocrit 38.8 % (37.0-47.0); Hemoglobin 12.8 g/dl (12.0-16.0); Imm Gran Abs Auto 0.03 X10*3/uL (0.00-0.03); Imm Gran Pct Auto 0.6 % (0.0-0.4); Mean Corpuscular Hemoglobin 34.9 pg (27.0-33.0); Mean Corpuscular Volume 105.7 fL (80.0-98.0); Mean Platelet Volume 11.5 fL (9.4-12.3); Monocytes Absolute Auto 0.3 X10*3/uL (0.1-1.2); Monocytes Percent Auto 7.1 % (2-11); Neutrophils Absolute Auto 3.1 x10*3/uL (2.0-8.3); Neutrophils Percent Auto 64.1 % (45-73); Platelet Count 156 X10*3/uL (160-400); Red Blood Count 3.67 X10*6/uL (4.20-5.50); Red Cell Distribution Width 15.5 % (11.0-16.0); White Blood Count 4.8 X10*3/uL (4.8-10.8)
[2024-02-19 12:12] LABS: Appearance Urine Clear; Color Urine Yellow; Glucose Urine UA Negative (Negative); Leukocyte Esterase Urine Moderate (2+) (Negative); Nitrite Urine Negative (Negative); PH 5.5 (5.0-9.0); Specific Gravity - Urine 1.015 (1.005-1.025); UMIC TRIGGER UACC YES; Urine Blood Negative (Negative); Urine Ketones Negative (Negative); Urine Protein Negative (Neg-Trace)
[2024-02-19 12:17] LABS: Bacteria Urine None Seen (None Seen); Hyaline Casts Urine 0-2 /LPF (0-2); RBC Urine 0-2 /HPF (0-2); Squamous Epithelial Cell Urine 0-2 /HPF (0-2); UACC Culture Trigger YES
[2024-02-19 12:20] LABS: Estimated Average Glucose 117 mg/dL; Hemoglobin A1c % 5.7 % (<6.0)
[2024-02-19 12:40] LABS: Alanine Aminotransferase 12 U/L (0-31); Albumin Level 3.6 g/dL (3.5-5.0); Alkaline Phosphatase 88 U/L (39-117); Anion Gap 10 (12-20); Aspartate Amino Transferase 17 U/L (5-31); Bilirubin Total 0.4 mg/dL (0.0-1.0); Blood Urea Nitrogen 19 mg/dL (9-16); Calcium 8.8 mg/dL (8.4-10.2); Carbon Dioxide 24 mmol/L (22-29); Chloride 110 mmol/L (96-108); Cholesterol 108 mg/dL (<200); Estimated Glomerular Filt Rate > 60; Glucose Fasting 104 mg/dL (60-99); HDL Cholesterol 38 mg/dL (>40); LDL Cholesterol Calculated 55 mg/dL (<100); Potassium 3.6 mmol/L (3.3-5.1); Sodium 140 mmol/L (135-145); Total Protein 7.2 g/dL (6.5-8.0); Triglycerides 79 mg/dL (<150)
[2024-02-19 12:41] LABS: Creatinine Urine 88.65 mg/dL
== END 2024-02-19 11:23 | disposition home or self-care (01) ==
LOC: HO.LNP 11:22
PROVIDERS: Visit Provider Internal Medicine
DX: E11.9 Type 2 diabetes mellitus without complications (principal); I10 Essential (primary) hypertension; E78.5 Hyperlipidemia, unspecified; E55.9 Vitamin D deficiency, unspecified; D69.6 Thrombocytopenia, unspecified
CPT/HCPCS: 80053; 80061; 81001; 82043; 82306; 82570; 83036; 85025; 87086

== ENCOUNTER 2024-07-20 09:20 | Outpatient (AMB) | payer MEDICARE, SELFPAY ==
--- NOTE | 2024-07-20 09:25 | MHC.OFFVIS ---
Vital Signs 07/20/24 09:31 Height 5 ft 7 in Weight 171 lb 4 oz BMI 26.8 BP 159/72 H Blood Pressure Location Lt brachial Position Sitting Pulse 65 Intake Visit Reasons: 6 m f/up breast Intake Note: Patient is seen in office for 6 month follow up visit, breast exam. Patient c/o: denies any concerns at the time of visit MRI:02/16/24 mm:01/27/24 Certified Teacher Assistant Required: No Log Haul Chain Feeder: Log Haul Chain Feeder Present Accompanied by: Self / Same As Patient Allergies codeine Allergy (Mild, Verified 01/02/24 10:26) Nausea and Vomiting oxycodone [From OxyContin] Allergy (Mild, Verified 01/02/24 10:26) Nausea and Vomiting Medication List - Last Reconciled 07/20/24 by Tico Arenas MD apixaban (Eliquis) 2.5 mg PO BID aspirin (Adult Aspirin Regimen) 81 mg PO DAILY atorvastatin 80 mg PO DAILY cholecalciferol (vitamin D3) (Vitamin D3) 25 mcg PO DAILY folic acid 1 mg PO DAILY letrozole 2.5 mg PO DAILY levothyroxine 175 mcg PO DAILY lisinopril 20 mg PO DAILY pen needle, diabetic As directed trazodone 50 mg PO BEDTIME HPI Comments Details: 74-year-old female patient returning for breast cancer follow-up examination. She was found to have 2 abnormal densities in the right breast on mammogram of 09/08/2019. Subsequent ultrasound guided core biopsy revealed invasive ductal carcinoma, ER/CT positive, HER2 Zacarias negative. She underwent a right breast lumpectomy with sentinel node biopsy on 09/15/2019. Pathology confirmed invasive ductal carcinoma, grade 2, multifocal with DCIS, intermediate grade, margins negative for invasive or in-situ cancer, 0 of 1 sentinel nodes with metastatic disease (pT1cN0 (sn)(i-)). She underwent radiation therapy at [facility] which was completed on 12/17/2019. She was started on letrozole 2.[address] Helton. On her previous visit she was noted to have a palpable mass in the left breast in the subareolar location approximately the 3 o'clock position. She was subsequently sent for a diagnostic mammogram and ultrasound. This was performed on 03/31/2023 and revealed extensive ductal ectasia in the left breast corresponding to the region of abnormality. Her most recent mammogram of 01/27/2024 revealed no mammographic evidence of malignancy (BI-RADS 2). Six-month follow-up breast MRI performed at [facility] on 02/16/2024 revealed no MR evidence of malignancy in either breast (BI-RADS 2). She will be due for a mammogram in 01/2025. [facility] Medical History History of trigger finger AAA (abdominal aortic aneurysm) Presence of stent in artery Hypertension Diabetes High cholesterol Hypothyroid Invasive ductal carcinoma of right breast Surgical History H/O left knee surgery History of lumpectomy of right breast (09/15/19) History of hysterectomy History of right knee surgery History of hernia repair History of cholecystectomy History of cataract surgery Family History Brother History of bladder cancer Brother History of bladder cancer Mother Diabetes Heart abnormality History of bladder cancer Pacemaker Father Stroke Heart attack Social History Household Members: Spouse Housing: House Are you a primary health care technician to a significant other at home: No Do you presently have visiting nurse or other home services: No Alcohol intake: former Patient Tobacco Use Status: Current everyday Tobacco user Tobacco use type: Cigarette Cigarette Packs Per Day: 0.5 service: No Current occupational status: employed 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 [employer] Current occupational exposures/hazards: Yes (Stress) Sexual orientation: Straight/Heterosexual Gender identity: Female Review of Systems Const Denies chills, Denies fever(s), Denies headache(s), Denies poor appetite and Reports weight loss ENT Denies dizziness and Denies headache(s) Card Denies chest pain, Denies rapid heart rate, Denies palpitations and Denies slow heart rate Resp Denies chest congestion, Reports cough, Denies pain on inspiration and Denies wheezing GI Denies abdominal pain, Denies bloating, Denies change in stool character, Denies constipation, Denies diarrhea, Denies nausea, Denies vomiting and Denies hematemesis Musc Denies back pain, Reports arthralgias, Reports joint swelling (Left knee) and Denies numbness Skin/Breast Denies breast swelling, Denies breast skin changes, Denies breast pain, Denies breast mass, Denies change in pigmentation, Denies erythema and Denies rash Neuro Denies dizziness, Denies headache(s) and Denies numbness Psych Denies anxiety and Denies depression Endo Denies palpitations Roque/Lymph Reports easy bleeding, Reports easy bruising and Denies lymphadenopathy Aller/Immun Denies wheezing Physical Exam Const General: no acute distress and well developed Nutritional Appearance: well nourished Orientation/consciousness: patient oriented x3 Limitations: no limitations HEENT Head: Yes normocephalic and Yes atraumatic Eyes Sclerae: sclerae normal Neck Other: no palpable supraclavicular or cervical lymph nodes Chest Other: right breast: Well-healed incision in the upper outer quadrant with some slight retraction of the incision. No palpable mass, new skin change other than radiation change, nipple retraction, nipple discharge, or enlarged lymph nodes. Left breast: No skin change, no nipple retraction, no nipple discharge, no palpable mass or no enlarged lymph nodes Chest/axillae images: 1. Incision upper outer quadrant right breast Resp Other: breathing comfortably on room air, no respiratory distress GI Inspection: Yes normal to inspection Skin Other: warm and dry, no rash Neuro Other: Mobility Assessment: 1. 3 meter assessment time (seconds) 6 2. Gait observations: Normal balance and gait General: patient oriented x3 Extrem Other: no edema in arm or hands, normal range of motion Assessment & Plan Assessment & Plan (1) Invasive ductal carcinoma of right breast: Code(s): C50.911 - Malignant neoplasm of unspecified site of right female breast Category: Medical (2) Left breast mass: Code(s): N63.20 - Unspecified lump in the left breast, unspecified quadrant Category: Surgical Qualifiers: Breast mass location: upper outer quadrant Qualified Code(s): N63.21 - Unspecified lump in the left breast, upper outer quadrant Plan 74-year-old female patient status post right breast lumpectomy with sentinel node biopsy for invasive ductal carcinoma right breast, ER/CT positive, HER2 Zacarias negative with negative margins and 0 of 2 sentinel nodes with metastatic disease performed on 09/15/2019. She completed radiation therapy in December 2019 and is now on letrozole 2.5 mg q.day. Her most recent mammogram of 01/27/2024 revealed no mammographic evidence of malignancy (BI-RADS 2). Six-month follow-up breast MRI performed on 02/16/2024 revealed no MR specific evidence of malignancy (BI-RADS 2). Examination today revealed no suspicious findings in either breast and no enlarged lymph nodes. Recommended a six-month follow-up examination. She is welcome to call sooner for any new concerns. Coding Level of Care Code Est Pt Level 3 (44966) Diagnoses Invasive ductal carcinoma of right breast C50.911 Mass of upper outer quadrant of left breast N63.21 Breast mass location: upper outer quadrant
[2024-07-20 09:31] VITALS: BP 159/72; PULSE 65; BMI 26.8
== END 2024-07-20 09:42 | disposition home or self-care (01) ==
PROVIDERS: PCP Internal Medicine; Visit Provider Surgery
DX: C50.911 Malignant neoplasm of unspecified site of right female breast (principal); N63.21 Unspecified lump in the left breast, upper outer quadrant
CPT/HCPCS: 99213

== ENCOUNTER → 2024-07-20 09:20 | Outpatient (BNVA) | payer MEDICARE, SELFPAY | PROVIDERS: PCP Internal Medicine; Visit Provider Surgery | DX: C50.911 Malignant neoplasm of unspecified site of right female breast (principal); N63.21 Unspecified lump in the left breast, upper outer quadrant | CPT/HCPCS: 99212 ==

== ENCOUNTER 2024-08-17 10:06 | Outpatient (REF) | payer MEDICARE, SELFPAY ==
[2024-08-17 11:07] LABS: Alanine Aminotransferase 23 U/L (0-31); Albumin Level 3.7 g/dL (3.5-5.0); Alkaline Phosphatase 98 U/L (39-117); Aspartate Amino Transferase 34 U/L (5-31); Bilirubin Direct 0.1 mg/dL (0.0-0.5); Bilirubin Total 0.4 mg/dL (0.0-1.0); Cholesterol 122 mg/dL (<200); Glucose Fasting 111 mg/dL (60-99); HDL Cholesterol 45 mg/dL (>40); LDL Cholesterol Calculated 58 mg/dL (<100); Total Protein 7.7 g/dL (6.5-8.0); Triglycerides 97 mg/dL (<150)
[2024-08-17 11:10] LABS: Estimated Average Glucose 120 mg/dL; Hemoglobin A1c % 5.8 % (<6.0)
--- OUTSIDE RECORDS SUMMARY | 2024-08-17 11:50 | XMS_ITS ---
Author Organization Ariel Akhtar MD Address [address] [place], [place] [phone] Care Team Providers Care Ball Shagger Name Role Phone rAiel Akhtar Primary Care Provider [phone] Results Component Value Reference Range Notes Hemoglobin A1c (Not yet revi ewed by provider) Interpretation: Performing Lab:[facility], [address] [place] [phone] Notes/Report: Hemoglobin A1c % 5.8 <6.0 % [...] average glucose, using the formula of the J1U-Riyirqz Average Glucose study (ADAG), Diabetes Care, Vol.31,#8, 2007 REASON FOR VISIT fasting lipds Encounters Encounter Location Date Provider Diagnosis Ariel Akhtar MD [address] [place] [address] [place] [phone] 08/17/2024 Ariel Akhtar Type 2 diabetes mellitus without complications E11.9 and Hyperlipidemia, unspecified hyperlipidemia type E78.5 Assessments Encounter Date Diagnosis (ICD Code) Assessment Notes Treatment Notes Treatment Clinical Notes Section Notes 08/17/2024 Type 2 diabetes mellitus without complications (ICD-10 - E11.9) 08/17/2024 Hyperlipidemia, unspecified hyperlipidemia type (ICD-10 - E78.5) Plan Of Treatment Pending Test Test Name Order Date Liver Panel 08/17/2024 Glucose Fasting 08/17/2024 Lipid Panel with Reflex 08/17/2024 Hemoglobin A1c 08/17/2024 Next Appt Details Provider Name:Ariel walker, 08/26/2024 10:45:00 AM, [address] [place] [address], [address], [phone], Provider Name:Ariel walker, 02/22/2025 07:15:00 AM, [address] [place] [address], [address], [phone], Provider Name:Ariel walker, 03/01/2025 09:30:00 AM, [address] [place] [address], [address], [phone], Progress Notes * Kathrine ANDRADEOB:1950 ([age] yo F)Acc No.[id number]:08/17/2024 Progress Note Patient:?Misael ANDRADEil Provider:?Ariel Akhtar MD :1950???Age:74 Y???Sex:Female D ate:08/17/2024 Address: [address], [address] [place] [id number] Subjective: * Chief Complaints: * ???1. Fasting lipds. * Medical History:? Objective: * Vitals:? Assessment: * Assessment: 1.?Type 2 diabetes mellitus without complications - E11.9 (Primary)???2.?Hyperlipidemia, unspecified hyperlipidemia type - E78.5??? Plan: * Treatment: 2.?Hyperlipidemia, unspecifi ed hyperlipidemia type?LAB: Liver Panel ?LAB: Glucose Fasting ?LAB: Lipid Panel with Reflex ?LAB: Hemoglobin A1c (Collection Date & Time - 08/17/2024 07:15 AM) * Procedure Codes:?71960 VENIP UNCT, ROUTINE* * * The named appointment provid er may or may not be the originator of this progress note, and it is not deemed complete until electronically signed by the appointment provider. Sign off status: Pending * Provider:?Ariel Akhtar MD Date:?0 08/17/2024 Generated for Tawnya rosario/Nuzhat/eTneydasmitting on:?08/17/2024 11:49 AM EDT
--- OUTSIDE RECORDS SUMMARY | 2024-08-17 11:50 | XMS_ITS | Patient Health Record ---
Author Organization [facility] Address [address] [place] [phone] Care Team Providers Care Director Home Name Role Phone Giovana ALBARRAN, Ariel Primary Care Provider Ace Post Jr Unavailable Allergies Allergen (clinical drug ingredient) Drug/Non Drug Allergy documented on EMR Reaction Allergy Type Onset Date Status oxycodone OxyContin Unknown Drug Allergy Active Reason For Referral No Information Medications Medication SIG (Take, Route, Frequency, Duration) Notes Start Date End Date Status Lantus SoloStar 100 UNIT/ML Subcutaneous for 35 Active MiraLax (colon prep) 17 GM/SCOOP mixed with Gatorade or Crystal Light Orally begin at 5:00 p.m. the day before the procedure for 1 day 10/11/2021 Active HumaLOG KwikPen 100 UNIT/ML Subcutaneous for 39 Active Letrozole 2.5 MG Oral for 90 A ctive Eliquis 2.5 MG TAKE 1 TABLET BY TWICE DAILY Oral for 30 Active traZODone HCl 50 MG Oral for 90 Active Atorvastatin Calcium 80 MG Oral for 90 Active Levothyroxine Sodium 175 MCG 1 tablet on an empty stomach in the morning Orally Once a day Active Lisinopril 20 MG 1 tablet Orally Once a day Active Immunizations Vaccine Route Administration Date Status Comme nts Influenza Unknown 02/07/2021 Administered Social History Tobacco Use: Social History Observation Description Date Details (start date - stop date) Current Smoker NA - NA Tobacco Use/Smoking Question Answer Notes Patient is a current smoker How often do you smoke cigarettes? every day How many cigarettes a day do you smoke? 6-10 How soon after you wake up d o you smoke your first cigarette? after 60 minutes Are you interested in quitting? Thinking about q uitting Alcohol Screen Question Answer Notes Did you have a drink containing alcohol in the p ast year? No Points 0 Interpretation Negative Problems Problem Type SNOMED Code ICD Code Onset Dates Problem Status W/U Status Risk Notes Problem 932715060 Colon cancer screening (Z12.11) Active confirmed Problem 848209470 prison (curre nt) use of anticoagulants (Z79.01) Active confirmed Problem 76580797 Encounter for ot her preprocedural examination (Z01.818) Active confirmed Problem 447826589 [employer] for [employer] (curre nt) use of insulin (Z79.4) Active confirmed Plan Of Treatment Future Test Test Name Order Date COLONOSCOPY 12/03/2017 COLONOSCOPY 10/11/2021 Insurance Providers Payer Name Payer Address Payer Phone Subscriber Number Group Number Insured Name Patient Relationship to Insured Coverage Start Date Coverage End Date MEDICARE OF [place] [address] [place] [address] [phone] [id number] LYNSEY ANDRADE Self - patient is the insured [facility] SUPP[employer] PLAN [address] [place] [id number] LYNSEY ANDRADE Self - patient is the insured Medical (General) History Medical History History ICD Code diabetes mellitus hypothyroidism elevated cholesterol uterine cancer hypertension breast cancer 2019 abdominal aortic aneurysm Surgical History Surgery Date(Month/Year) right knee replacement cholecystectomy tubal ligation hysterectomy hernia repair lumpectomy right left leg stent
--- OUTSIDE RECORDS SUMMARY | 2024-08-17 11:50 | XMS_ITS ---
Author Organization [facility] Address [address] [place] [address] Care Team Providers Care Mobile Heavy Equipment Operator Name Role Phone Ariel Akhtar MD Primary Care Provider Amairani Falcon Unavailable [phone] Allergies No Known Allergies REASON FOR VISIT At Risk Footcare, Painful Nail(s) aggrevated by shoes and causing difficulty standing/walking., Skin Problem Medications Medication SIG (Take, Route, Frequency, Duration) Notes Start Date End Date Status Clotrimazole-Betamethason e 1-0.05 % 1 application to affected area Externally Twice a day to affected areas on feet for 30 days 11/12/2021 Not-Taking Ciclopirox Olamine 0.77 % 1 application Externally Twice a day for 30 days Active Mupirocin 2 % 1 application Externally Two times a day for 14 days 10/23/2020 Not-Taking Ciclopirox Olamine 0.77 % 1 application to affected area Externally to feet Twice a day for 30 days Not-Taki ng Extra Depth Orthopedic Shoes (1 Pair) with Customized Heat Molded Multidensity Innersoles (3 Pair) as directed Dx: NIDDM/Polyneuropathy (E11.42), Hammertoe Foot Deformity (M20.41,M20.42), Preulcerative Skin Lesion(s) (L85.1 08/09/2021 Not-Taking Extra Depth Orthopedic Shoes (1 Pair) with Customized Heat Molded Multidensity Innersoles (3 Pair) as directed Dx: NIDDM/Polyneuropathy (E11.42), Hammertoe Foot Deformity (M20.41,M20.42), Preulcerative Skin Lesion(s) (L85.1 10/23/2020 Not-Taking Lisinopril 40 MG 1 tablet Orally Once a day for 30 day(s) Active Hydrocortisone 2.5 % as directed Externa lly to feet Twice a day for 30 days Active Letrozole 2.5 MG 1 tablet Orally Once a day for 30 day(s) Active Atorvastatin Calcium 80 MG 1 tablet Orally Once a day for 30 day(s) Active Lantus Not-Taking HumaLOG Not-Taking Levothyroxine Sodium 175 MCG 1 tablet in the morning on an empty stomach Orally Once a day for 30 day(s) Active traZODone HCl 50 MG 1 tablet at bedtime as needed Orally Once a day for 30 day(s) Active Vitamin D 50 MCG (2000 UT) 1 tablet Orally Once a day for 30 day(s) Active Folic Acid Active Eliquis 5 MG as directed Orally Active Aspir-81 Active Social History Tobacco Use: Social History Observation Description Date Details (start date - stop date) Current Smoker NA - NA Tobacco Use/Smoking Question Answer Notes Are you a: current smoker How many cigarettes a day do you smoke? 6-10 How soon after you wake up d o you smoke your first cigarette? within 5 minutes Are you interested in quitting? Not ready to russell t Additional Findings: Tobacco User Modera te cigarette smoker (10-19 cigs/day) Alcohol Screen Question Answer Notes Did you have a drink containing alcohol in the p ast year? No Points 0 Interpretation Negative Tobacco use other than smoking: Question Answer Notes Are you an other tobacco user? No Vital Signs Height 5ft 7in in 04/15/2024 Weight 156 lbs 04/15/2024 BMI 24.43 kg/m2 04/15/2024 Encounters Encounter Location Date Provider Diagnosis [facility] [address] 04/15/2024 Amairani Jean Tinea pedis of both feet B35.3 ; Atherosclerosis of artery of both lower extremities I70.203 ; Type 2 diabetes mellitus with polyneuropathy E11.42 and Tinea unguium B35.1 Assessments Encounter Date Diagnosis (ICD Code) Assessment Notes Treatment Notes Treatment Clinical Notes Section Notes 04/15/2024 Tinea pedis of both feet (ICD-10 - B35.3) 04/15/2024 Atherosclerosis of artery of both lower extremities (ICD-10 - I70.203) 04/15/2024 Type 2 diabetes mellitus with polyneuropathy (ICD-10 - E11.42) 04/15/2024 Tinea unguium (ICD-10 - B35.1) Plan Of Treatment Next Appt Details Follow Up: 3 Months, Reason: Provider Name:Amairani campos, 10/18/2024 09:00:00 AM, [address], [place], [address], Procedure Notes * Category Sub-Category Detail Notes Debride Nail 6-10 Nail debridement Nail debridem ent performed extensively to reduce/remove overall nail length and girth, subungual debris, and necrotic tissue, by manual and electrical means with use of a nail nipper and/or dremel, to more viable healthy nail plate or bed tissue 6-10. Silver nitrate used for any petechial bleeding as necessary. Patient chooses, no pharmaceutical tx (44649) Keratoma Treatment Parring or Cutting o f Benign Hyperkeratotic Lesion(s) 53032 (2-4 Lesions) - The Benign hyperkeratotic lesions, as described above were pared, and/or cut utilizing a sterile #15 blade, tissue nippers, and/or dremel Progress Notes * Kathrine ANDRADEOB:1950 ([age] yo F)Acc No.[id number]:04/15/2024 Progress Note Patient:?Alla ANDRADE Provider:?Amairani Jean DPM :1950???Age:73 Y???Sex:Female D ate:04/15/2024 Address: [address], [facility] Pcp:Ariel Akhtar MD Subjective: * Chief Complaints: * ???At Risk FootcarePainful N ail(s) aggrevated by shoes and causing difficulty standing/walking.Skin Problem * HPI: ???At Risk footcare:?Pt States Last PCP Visit:?Date?01/08/2024 ???Skin problems:?Location:?B/L .?Course:?improved , at ___50__ %.?Treatments:?Medication (Ciclopirox Olamine 0.77 Cream).? * ROS:?General/Constitutional:?Nausea?denies.?Vomiting?denies.?Hunger Thirst?denies.?Loss appetite?denies.?Chills?denies.?Fatigue?denies.?Fever?denies.?Night Sweats?denies.?Unexplained weight loss?denies.?Unexplained weight gain?denies.?HEENTM:?Dentures?denies.?Dizziness?denies.?Glasses/contacts?denies.?Retinopathy?den ies.?Blurred/double vision?denies.?TMJ?denies.?Discharge/drainage?denies.?Implants?denies.?Sore throat?denies.?Dental implants?denies.?Hard of hearing ?denies.?Difficulty chewing/swallowing/speaking?denies.?Nose bleeds?denies.?Sore mouth?denies.?Respiratory:?On O xygen?denies.?Pneumonia/pleurisy?denies.?Bronchitis?denies.?Emphysema?denies.?Co ughing?denies.?Cough blood?denies.?Shortness of breath?denies.?Wheezing?denies.?Cardiovascular:?Pacemaker?denies.?MVP?denies.?WPW?denies.?CHF?denies.?Heart attack?denies.?Septal defect?denies.?Rapid beat?denies.?Chest pain ?denies.?Atrial Fib.?denies.?Murmur/Palpitations?denies.?Gastrointestinal:?Hemorrhoids?denies.?Stomach/Abdominal pain?denies.?Dark blood stool?denies.?Irritable bowel ?denies.?Constipation?denies.?Diarrhea?denies.?Hematology:?Swelling?denies.?Clots?denies.?Varicose Veins?denies.?Bruising?denies.?Bleeding problem?denies.?Genitourinary:?Blood urine?denies.?Frequent/Painfu/urination/bladder control?denies.?Kidney stones?denies.?Infection (UTI)?denies.?Nephropathy?denies.?sex trans dis (STD)?denies.?Prostate?denies.?Musculoskeletal:?Hammertoes?denies.?Bunions?denies.?Back Pain?denies.?Muscle Cramps/ Resting?denies.?Muscle cramps / walking?denies.?Generalized aches and pains?denies.?Weakness?denies.?Integ.:?Perkins?denies.?Scars?denies.?Corns/calluses?denies.?Ingrown nails?denies.?Painful nails?denies.?Open Sores?denies.?Rashes?denies.?Neurologic:?Difficulty sleeping?denies.?Brain disorder?denies.?Numbness?denies.?Balance t rouble?denies.?Confusion?denies.?Fainting/blackouts?denies.?Tingling?denies.?Joe mors?denies.? * Medical History:? * Surgical History:?cholecyste ctomy 1970hernia 1980hysterectomy 2018knee replacement 2011Breast Surgery 2019Hand Surgery 03/12/21total knee replacement, left 10/29/23 * Hospitalization/Major Diagno stic Procedure:?[facility]- fell, cut head 05/12/21[facility]- cut on left leg, infection, cellulitis 06/2023 * Family History:?Mother: dece ased, cancer, high blood pressure, diagnosed with Diabetic - NIDDM.?Father: .?Siblings: arthritis, cancer.?Spouse: alive.? * Social History:?Tobacco Use:?Tobacco Use/Smoking?Are you a:?current smoker ?How many cigarettes a day do you smoke??6-10 ?How soon after you wake up do you smoke your first cigarette??within 5 minutes ?Are you interested in quitting??Not ready to quit ?Additional Findings: Tobacco User?Moderate cigarette smoker (10-19 cigs/day) ?Tobacco use other than smoking?Are you an other tobacco user??No ???Drugs/Alcohol:?Drugs?Have you used drugs other than those for medical reasons in the past 12 months??No ?Alcohol Screen?Did you have a drink containing alcohol in the past year??No ?Points?0 ?Interpretation?Negative ???Miscellaneous:?Caffeine: yes, frequency:, , 1-2 cups per day. ?Children: yes. ?Exercise: no. ?Marital status: . ?Occupation: [employer], Works Part-time. * Medications:?TakingFolic Aci d Aspir-81 Eliquis 5 MG Tablet as directed Orally traZODone HCl 50 MG Tablet 1 tablet at bedtime as needed Orally Once a day Levothyroxine Sodium 175 MCG Tablet 1 tablet in the morning on an empty stomach Orally Once a day Vitamin D 50 MCG (2000 UT) Tablet 1 tablet Orally Once a day Atorvastatin Calcium 80 MG Tablet 1 tablet Orally Once a day Letrozole 2.5 MG Tablet 1 tablet Orally Once a day Lisinopril 40 MG Tablet 1 tablet Orally Once a day Hydrocortisone 2.5 % Cream as directed Externally to feet Twice a day Ciclopirox Olamine 0.77 % Cream 1 application Externally Twice a day Taking Folic Acid Taking - Taking Eliquis 5 MG Tablet as directed Orally Taking traZODone HCl 50 MG Tablet 1 tablet at bedtime as needed Orally Once a day Taking Levothyroxine Sodium 175 MCG Tablet 1 tablet in the morning on an empty stomach Orally Once a day Taking Vitamin D 50 MCG (2000 UT) Tablet 1 tablet Orally Once a day Taking Atorvastatin Calcium 80 MG Tablet 1 tablet Orally Once a day Taking Letrozole 2.5 MG Tablet 1 tablet Orally Once a day Taking Lisinopril 40 MG Tablet 1 tablet Orally Once a day Taking Hydrocortisone 2.5 % Cream as directed Externally to feet Twice a day Taking Ciclopirox Olamine 0.77 % Cream 1 application Externally Twice a day Not-Taking/PRNHumaLOG Lantus Extra Depth Orthopedic Shoes (1 Pair) with Customized Heat Molded Multidensity Innersoles (3 Pair) as directed Dx: NIDDM/Polyneuropathy (E11.42), Hammertoe Foot Deformity (M20.41,M20.42), Preulcerative Skin Lesion(s) (L85.1 Extra Depth Orthopedic Shoes (1 Pair) with Customized Heat Molded Multidensity Innersoles (3 Pair) as directed Dx: NIDDM/Polyneuropathy (E11.42), Hammertoe Foot Deformity (M20.41,M20.42), Preulcerative Skin Lesion(s) (L85.1 Clotrimazole-Betamethasone 1-0.05 % Cream 1 application to affected area Externally Twice a day to affected areas on feet Ciclopirox Olamine 0.77 % Cream 1 application to affected area Externally to feet Twice a day Mupirocin 2 % Ointment 1 application Externally Two times a day Medication List reviewed and reconciled with the patientNot-Taking/PRN HumaLOG Not-Taking/PRN Lantus Not-Taking/PRN Extra Depth Orthopedic Shoes (1 Pair) with Customized Heat Molded Multidensity Innersoles (3 Pair) as directed Dx: NIDDM/Polyneuropathy (E11.42), Hammertoe Foot Deformity (M20.41,M20.42), Preulcerative Skin Lesion(s) (L85.1 Not-Taking/PRN Extra Depth Orthopedic Shoes (1 Pair) with Customized Heat Molded Multidensity Innersoles (3 Pair) as directed Dx: NIDDM/Polyneuropathy (E11.42), Hammertoe Foot Deformity (M20.41,M20.42), Preulcerative Skin Lesion(s) (L85.1 Not-Taking/PRN Clotrimazole-Betamethasone 1-0.05 % Cream 1 application to affected area Externally Twice a day to affected areas on feet Not-Taking/PRN Ciclopirox Olamine 0.77 % Cream 1 application to affected area Externally to feet Twice a day Not-Taking/PRN Mupirocin 2 % Ointment 1 application Externally Two times a day Medication List reviewed and reconciled with the patient * Allergies:?N.K.D.A.yes[Aller gies Verified] Objective: * Vitals:?Ht: 5ft 7in, Wt:156, BMI:24.43, Shoe size: 9.5-10, BS: 110, Ht-cm: 170.18 cm, Wt-k.76 kg. * ???Past Orders: ???Lab:HEMOGLOBIN A1C (GLYCO HEMOGLOBIN) (Order Date - 01/12/2024) (Collection Date & Time - 01/12/2024 09:10 AM) ? Value Reference Range ?HEMOGLOBIN A1C % (HH) 5.3 * Examination: ???Ophthalmology Referral: ?DIABETES EYE EXAM?Procedure Performed:?Yes ?Date of Exam Performed?06/25/2023 ?Findings of Diabetic Eye Exam:?no retinopathy?Dermatologic: ?SKIN FINDINGS:?Skin exam reveals Keratotic lesion(s) located at, Heels B/L, skin shows sign(s) of, erythema, scaling, in a moccasin fashion, no fissure(s) present, B/L.?Vascular: ?DP PULSES (B):?1/4, RIGHT, , 2/4, , LEFT.?PT PULSES (B):?1/4, LEFT, 0/4, RIGHT.?CAPILLARY FILL TIME:? delayed, all digits, B/L.?TROPHIC CONDITION-TEXTURE/ELASTICITY/TURGOR/HAIR GROWTH (B):? decreased, B/L.?TEMPERTURE GRADIENT (C):? decreased, cool to cool, proximal to distal, B/L.?PIGMENTATION:? pale, B/L.?EDEMA (C):?absent, B/L.?Neurological: ?SENSORY:? Neurological exam demonstrates, reduced light touch sensation, reduced sharp/dull pin prick discrimination , reduced vibration sensation, reduced proprioception sensation, in a stocking fashion, plantar aspects, 5.07 monofilament test performed at plantar aspects of 5 varied sites per foot shows sensation, absent, at Forefoot, B/L.?Nails: ?NAILS are:?Elongated, overgrown, dystrophic, lytic, greater than 3mm thick, discolored and friable with crumbly malodorous subungual debris, with dull to no pain on palpation due to neuropathy, 1-5 B/L.?General Examination: ?FOOT EXAM:?Lower Extremity Neurological Exam performed:?Yes ?Visual exam of foot performed:?Yes ?Date?04/15/2024 ?Sensory testing performed:?sensations diminished ?Footwear Evaluation?Footwear Evaluation performed:?Yes??? Assessment: * Assessment: 1.?Tinea pedis of both feet - B35.3 (Primary)???Specify :Acute problem, Uncomplicated (3)???2.?Atherosclerosis of artery of both lower extremities - I70.203???3.?Type 2 diabetes mellitus with polyneuropathy - E11.42???4.?Tinea unguium - B35.1??? Plan: * Treatment: * Procedures:?Debride Nail 6-10:?Nail debridement?Nail debridement performed extensively to reduce/remove overall nail length and girth, subungual debris, and necrotic tissue, by manual and electrical means with use of a nail nipper and/or dremel, to more viable healthy nail plate or bed tissue 6-10. Silver nitrate used for any petechial bleeding as necessary. Patient chooses, no pharmaceutical tx (32763).?Keratoma Treatment:?Parring or Cutting of Benign Hyperkeratotic Lesion(s)?44950 (2-4 Lesions) - The Benign hyperkeratotic lesions, as described above were pared, and/or cut utilizing a sterile #15 blade, tissue nippers, and/or dremel.? * Procedure Codes:?10682 TRIM SKIN LESIONS, 2 TO 4, Modifiers: XS 07553 DEBRIDE NAIL, 6 OR MORE, Modifiers: XS * Preventive Medicine:? ??Counseling:?Tobacco use:?Type of Tobacco Use Cessation Counseling provided?Smoking cessation education ?Patient counseled on the dangers of smoking and urged to quit:?04/15/2024 ?Discussion:?-13: Office or other outpatient visit for the evaluation and management of an established patient, which required a medically appropriate history and/or examination and LOW level of DECISION MAKING for: 1 STABLE ACUTE UNCOMPLICATED PROBLEM, 2 OR MORE MINOR PROBLEMS, OR 1 STABLE CHRONIC PROBLEM, THAT POSE(S) A LOW RISK FOR MORBIDITY/MORTALITY. The visit on the day of the encounter encompassed interpreting the data and educating the patient as to the nature of their condition, treatment options available according to their individual PMH, meds, allergies, and overall health/living conditions, as well as any potential risks or complications that may occur from a failure to adhere to, and participate in, the recommended course of therapy. The discussion included a complete verbal, and/or written explanation of the examination results, any x-rays taken, the proposed diagnosis, and outline of the treatment plan. A schedule for future care needs was also explained. The patient verbalized an understanding of the instructions at this time and agreed to be an active participant in their treatment. If the patient should think of any questions or concerns after the visit, I have encouraged the patient to call the office.?Tinea Pedis:?Given recent successful results to treatment, The patient is to cont the rx cream as directed.? ??Screening/Special Tests:?Fall Risk?Assessment:?Performed ?Screening:?No falls in the past year ?FALLS: Screening for Future Fall Risk?Have you had two or more falls in the past year??No * Follow Up:?3 Months * Images: * Sign off status: Completed true * Provider:?Amairani Jean DPM Date:?12/2023 Generated for Tawnya rosario/Nuzhat/Koby on:?08/17/2024 11:50 AM EDT History and Physical Notes * HPI (History of Present Illness) Category Sub-Category Detail Notes Category Not es Skin problems Location: B/L Course: improved , at ___50_ _ % Treatments: Medication (Ciclopir ox Olamine 0.77 Cream) At Risk footcare Pt States Last PCP Visit: Date: 4 Examination Category Sub-Category Detail Notes Category Not es Neurological SENSORY: Neurological exa m demonstrates, reduced light touch sensation, reduced sharp/dull pin prick discrimination , reduced vibration sensation, reduced proprioception sensation, in a stocking fashion, plantar aspects, 5.07 monofilament test performed at plantar aspects of 5 varied sites per foot shows sensation, absent, at Forefoot, B/L Dermatologic SKIN FINDINGS: Skin exam reveal s Keratotic lesion(s) located at, Heels B/L, skin shows sign(s) of, erythema, scaling, in a moccasin fashion, no fissure(s) present, B/L General Examination FOOT EXAM: Lower Extrem ity Neurological Exam performed:: Yes Visual exam of foot performed:: Yes Date: 04/15/2024 Sensory testing performed:: sensations d iminished Footwear Evaluation Footwear Evaluation performe d:: Yes Ophthalmology Referral DIABETES EYE EXAM Procedure Perform ed:: Yes ?Date of Exam Performed: 06/25/2023 Findings of Diabetic Eye Exam:: no retin opathy Vascular DP PULSES (B): 1/4, RIGHT, , 2/4, , LEFT PT PULSES (B): 1/4, LEFT, 0/4, RIGH T CAPILLARY FILL TIME: delayed, all digits , B/L TEMPERTURE GRADIENT (C): decreased, cool to cool, proximal to distal, B/L TROPHIC CONDITION-TEXTURE/ELASTICITY/TURGOR/HAIR GROWTH (B): decreased, B/L EDEMA (C): absent, B/L PIGMENTATION: pale, B/L Nails NAILS are: Elongated, overg rown, dystrophic, lytic, greater than 3mm thick, discolored and friable with crumbly malodorous subungual debris, with dull to no pain on palpation due to neuropathy, 1-5 B/L
--- OUTSIDE RECORDS SUMMARY | 2024-08-17 11:50 | XMS_ITS | Data Portability ---
Author Organization [place] - [facility], [address] Address [address] [place] [address] Assessment No assessment recorded. Plan of Treatment Reminders Order Date Submit Date Provider Last Modified By Organization Details Last Modified Time Details Appointments None recorded. Lab None recorded. Referral orthopedic surgeon referral - chronic degenerativ e changes involving right hand and 5th metacarpal joint . seem old fracture vs acute fracture. need further evaluation and treatment. 2023 024 [email or web address] 48 [facility], [address], [place], [address], 4 11:39:28 Procedures None recorded. Surgeries None recorded. Imaging XR, hand, 3 or more view 2023 024 [email or web address] 48 [facility], [address] [place] [address], [address], 4 11:39:28 Medication Orders None recorded. Patient TargetsNo targets recorded. Patient InstructionsNo instructions recorded. Reason for Referral Orthopedic Surgeon Referral for Pain in finger of right hand chronic degenerative changes involving right hand and 5th metacarpal joint . seem old fracture vs ac chronic degenerative changes involving right hand and 5th metacarpal joint . seem old fracture vs acute fracture. need further evaluation and treatment. Referring Physician: Alejandro Currie, Urgent Care, Encounter Date: 11/27/2023 Results Created Date Observation Date Name Description Value Unit Range Abnormal Flag Note LastModifiedBy Organization Detail LastModifiedTime 11/27/19 24 11/27/2023 XR, hand, 3 or more view No observ ation record ed. [email or web address] [facility] [address] [place], [address], 11/27/2023 11:38:48 11/27/19 24 XR, hand, 3 or more view No observ ation record ed. [email or web address] [facility] [address] [place], [address], 11/27/2023 19:48:06 Result Notes None recorded. Problems Name Problem SNOMED Code Status Onset Date Resolution Date Notes Provider Name and Address Organization Details Recorded Time Hypercholes terolemia 91755534 Active Tonya black, [place] - [facility] 4 10:17:02 Hypertensiv e disorder 81239958 Active Tonya black, [place] - [facility] 4 10:17:10 Pain in finger of right hand 6854583926244 09 Active 2023 Alejandro Currie NP [address] [facility] [place] [address] [facility] [place] - [facility] 4 10:53:59 Problem Notes None recorded. Procedures Surgical History None recorded. Imaging Results Imaging Date Name Status LastModified by Organiz ation Details LastModified Time 11/27/2023 XR, hand, 3 or more view completed [email or web address] [facility] [address] [place], [address], 11/27/2023 11:38:48 11/27/2023 XR, hand, 3 or more view completed [email or web address] [facility] [address] [place], [address], 11/27/2023 19:48:06 Procedure Notes None recorded. Medical Equipment None Reported. Allergies No known drug allergies Medications Name Sig Start Date Stop Date Status Note LastModified by Organization Details LastModified Time celecoxib 200 mg capsule TAKE 1 CAPSULE BY MOUTH EVERY DAY FOR 33 DAYS DIRECTED 11/26 completed Not Available Not Available Not Available levothyroxi ne 175 mcg tablet active Not Available Not Available Not Available atorvastati n 80 mg tablet active Not Available Not Available Not Available trazodone 50 mg tablet active Not Available Not Available Not Available lisinopril 20 mg tablet active Not Available Not Available Not Available tramadol 50 mg tablet TAKE 1 TO 2 TABLETS BY MOUTH EVERY 6 HOURS NEEDED FOR MILD PAIN. DO NOT EXCEED 8 TABLETS (400MG) PER DAY. 11/26 completed Not Available Not Available Not Available cephalexin 500 mg capsule TAKE 1 CAPSULE BY MOUTH TWICE DAILY FOR 5 DAYS 11/26 completed Not Available Not Available Not Available pantoprazol e 40 mg tablet,marissa yed release TAKE 1 TABLET BY MOUTH EVERY DAY DIRECTED 11/26 completed Not Available Not Available Not Available levothyroxi ne 150 mcg tablet active Not Available Not Available Not Available docusate sodium 100 mg capsule TAKE 1 CAPSULE BY MOUTH TWICE DAILY DIRECTED 11/26 completed Not Available Not Available Not Available folic acid 1 mg tablet TAKE 1 TABLET BY MOUTH DAILY active Not Available Not Available No t Available letrozole 2.5 mg tablet active Not Available Not Available Not Available doxycycline hyclate 100 mg tablet TAKE 1 TABLET BY MOUTH TWICE DAILY 11/26 completed Not Available Not Available Not Available amoxicillin 875 mg-potassiu m clavulanate 125 mg tablet TAKE 1 TABLET BY MOUTH EVERY 12 HOURS FOR 7 DAYS 11/26 completed Not Available Not Available Not Available oxycodone 5 mg tablet TAKE 1 TO 2 TABLETS BY MOUTH EVERY 4 HOURS NEEDED FOR MODERATE TO SEVERE PAIN 11/26 completed Not Available Not Available Not Available ciclopirox 0.77 % topical cream APPLY TOPICALLY TO THE AFFECTED AREA TWICE DAILY 11/26 completed Not Available Not Available Not Available Eliquis 2.5 mg tablet TAKE 1 TABLET BY MOUTH TWICE DAILY active Not Available Not Available No t Available Vitals Date Recorded Body height Body mass index (BMI) Body weight Body temperature Respiratory rate Heart rate Oxygen saturation Oxygen saturation in Arterial blood by Pulse oximetry Systolic blood pressure Diastolic blood pressure Provider Name and Address Organization Details Last Updated DateTime 4 170.18 cm 22.9 kg/m2 52487.4 9 g 98.2 [degF] 18 /min 72 /min 98 % 98 % 96 mm[Hg] 59 mm[Hg] Tonya Enriquez [place] - [facility] 10:19:36 Social History Question Answer Notes LastModified by Organizat ion Details LastModified Time Tobacco Smoking Status Current Every Day Smoker [facility] 11/27/2023 10:18:30 What Is Your Level Of Alcohol Consumption? None Information not available 11/27/2023 What Was The Date Of Your Most Recent Tobacco Screening? 11/27/2023 Information not available 11/27/2023 Do You Use Any Illicit Or Recreational Drugs? No Information not available 11/27/2023 Do You Or Have You Ever Used Any Other Forms Of Tobacco Or Nicotine? No Information not available 11/27/2023 Sex: Unknown Functional Status None recorded. Mental Status None recorded. Family History Relationship Description Onset Age of this Age Resolved Age Notes LastModified by Organization Details LastModified Time Father No current problems or disability Not available 11/26 10:18:11 Mother No current problems or disability Not available 11/26 10:18:11 Medical History No medical history recorded. Gynecological HistoryNo gynecological history recorded. Obstetrics History GPAL:G 0 P 0 0 0 0 Immunizations Vaccine Type Date Status Note Provider Nam e and Address Organization Details Recorded Time Tdap 06/27/2023 completed [facility] 11/27/2023 10:15:15 Past Encounters Encounter ID Performer Location Encounter Start Date Encounter Closed Date Diagnosis/Indication Diagnosis SNOMED-CT Code Diagnosis ICD10 Code Diagnosis Note [id number] [address] [place] [address] 05/05/2017 09:06:44 05/05/2017 10:29:22 [id number] [address] [facility] [address] [place] [address] 07/09/2019 09:15:38 07/09/2019 09:34:30 [id number] [address] [place] [address] 10/07/2016 15:35:27 10/07/2016 16:12:27 [id number] Alejandro Currie NP [address] [facility] [address] [place] [address] 11/27/2023 10:07:51 11/27/2023 11:39:28 Pain in finger of right hand 7670568693 99824 M79.644 Follow up with primary care provider in one week as needed. To the ED with any worsening or concerning symptoms, chest pain, shortness of breath, fever not controlled with medication , severe abdominal pain. Return here in 4-5 days as needed or if symptoms have not improved. Arthritis is a common health problem in which the joints are inflamed. There are several kinds of arthritis. Osteoarthr itis is caused by a breakdown of cartilage, the hard, thick tissue that cushions the joints. It causes pain, stiffness, and swelling, often in the spine, fingers, hips, and knees. Osteoarthr itis can happen at any age, but it is most common in older people. Osteoarthr itis never goes away completely , but it can be controlled . Medicine and home treatment can reduce the pain and prevent the arthritis from getting worse. How can you care for yourself at home? Take a warm shower or bath in the morning to relieve stiffness. Avoid sitting still afterwards . If the joint is not swollen, use moist heat, like a warm, damp towel, for 20 to 30 minutes, 2 or 3 times a day. Do not use heat on a swollen joint. If the joint is swollen, use ice or cold packs for 10 to 20 minutes, once an hour. Cold will help relieve pain and reduce inflammati on. Put a thin cloth between the ice and your skin. To prevent stiffness, gently move the joint through its full range of motion several times a day. If the joint hurts, avoid activities that put a strain on it for a few days. Take rest breaks throughout the day. Get regular exercise. Walking, swimming, yoga, biking, julissa chi, and water aerobics are good exercises that are gentle on the joints. Reach and stay at a healthy weight. If you need to lose or maintain weight, regular exercise and a healthy diet will help. Extra weight can strain the joints, especially the knees and hips, and make the pain worse. Losing even a few kilograms may help. Take pain medicines exactly as directed. If the doctor gave you a prescripti on medicine for pain, take it as prescribed . If you are not taking a prescripti on pain medicine, ask your doctor if you can take an over-the-c ounter medicine. Health Concerns Section Related Observation LastModified by Organization Detai ls LastModified Time None Recorded Concern Status LastModified by Organization Details LastModified Time None Recorded Advance Directives Directive None Recorded Payers Encounter Date Sequence Insurance Name Policy Number Policy Hoskins Covered Member ID Hoskins Member ID Guarantor Name 10/07/2016 1 [place] [employer] Alla E Eva [id number] Alla Eva 10/07/2016 2 [employer] OPTIONS (MEDICARE SUPPLEMENT) Alla Eva [id number] Alla Eva 05/05/2017 1 [place] [employer] Alla E Vea [id number] Alla Eva 05/05/2017 2 [employer] OPTIONS (MEDICARE SUPPLEMENT) Alla Eva [id number] Alla Eva 07/09/2019 1 [place] [employer] Alla E Eva [id number] Alla Eva 07/09/2019 2 [employer] OPTIONS (MEDICARE SUPPLEMENT) Alla Eva [id number] Alla Eva 11/27/2023 1 [place] [employer] Alla E Eva [id number] Alla Eva 11/27/2023 2 [employer] OPTIONS (MEDICARE SUPPLEMENT) Alla Eva [id number] [facility] Notes Date Note Type Note Provider Name and Address Organization Details Recorded Time 11/27/2023 text/html Wrist / Hand InjuryReported bypatient.source of patient informationpatient; Patient arrived at Urgent Care ambulatory; 73 year old female comes in with right hand swelling and painful ROM , also have bruising right little finger and painful ROM and tenderness x 2 days. denies any trauma or injury . Location:right; hand Associated Symptoms:no fever;pain;weakness; swelling;redness;war mth;tingling;ecchymo sis Severity:moderate; pain level 8/10 Duration:2 days; 11/25/2023 Context:atraumatic Hand Dominance:right Aggravating Factors:lifting; carrying; gripping; ROM Previous InjuryNo prior injury to affected body part Previous Treatmentnone Prior Imaging:none Alejandro Currie NP [address] [place], [address], [place] - [facility] 11/29/2023 16:16:50 OBGyn Episode No OBEpisode recorded.
--- OUTSIDE RECORDS SUMMARY | 2024-08-17 11:50 | XMS_ITS ---
Author Organization Ariel Akhtar MD Address [address] [place] [id number] Care Team Providers Care Spiral Runner Name Role Phone Ariel Akhtar Primary Care Provider Encounters Encounter Location Date Provider Diagnosis Ariel Akhtar MD [address] [facility] [address] [place] [id number] 04/22/2024 Ariel Akhtar Plan Of Treatment Next Appt Details Provider Name:Ariel Johnson ier, 08/26/2024 10:45:00 AM, [address] [place] [address], [address] [place] [address], [phone], Provider Name:Ariel Johnson ier, 02/22/2025 07:15:00 AM, [address] [place] [address], [address] [place] [address], [phone], Provider Name:Arielraoul walker, 03/01/2025 09:30:00 AM, [address], [address], [place], [place], [phone], Progress Notes * Kathrine ANDRADEOB:1950 ([age] yo F)Acc No.[id number]:04/22/2024 Patient:?Alla Andrade :1950???Age:73 Y???Sex:Female Address: [address], [place], [address] * true * Date:? Generated for Tawnya rosario/Nuzhat/eTransmitting on:?08/17/2024 11:49 AM EDT
--- OUTSIDE RECORDS SUMMARY | 2024-08-17 11:51 | XMS_ITS ---
Author Organization [facility] Address [address] [place] [address] Care Team Providers Care Winterizer Name Role Phone Ariel Akhtar MD Primary Care Provider Amairani Falcon Unavailable [phone] Marilu Morelos Unavailable [phone] REASON FOR VISIT error Encounters Encounter Location Date Provider Diagnosis [facility] [address] [place] [address] 01/12/2024 Marilu Morelos Plan Of Treatment Next Appt Details Provider Name:Amairani campos, 10/18/2024 09:00:00 AM, [address] [place] [address], [place], [address], Progress Notes * Kathrine ANDRADEOB:1950 ([age] yo F)Acc No.[id number]:01/12/2024 Progress Note Patient:?Alla ANDRADE Provider:?Marilu Morelos DPM :1950???Age:73 Y???Sex:Female D ate:01/12/2024 Address:[address] [facility] [place] Pcp:Ariel Akhtar MD Subjective: * Chief Complaints: * ???1. Error. * Medical History:? Objective: * Vitals:? Assessment: Plan: * Treatment: * Images: * The named appointment provid er may or may not be the originator of this progress note, and it is not deemed complete until electronically signed by the appointment provider. Sign off status: Pending * Provider:Carrillo Morelos DPM Date:?2023 Generated for Tawnya rosario/Nuzhat/Koby on:?08/17/2024 11:50 AM EDT
--- OUTSIDE RECORDS SUMMARY | 2024-08-17 11:51 | XMS_ITS | Patient Health Record ---
Author Organization [facility] Address [address] [place] [address] Care Team Providers Care Executive Vice President Of Sales Name Role Phone Giovana ALBARRAN, Ariel Primary Care Provider Amairani Falcon Unavailable [phone] Black, Marilu Unavailable [phone] Allergies No Known Allergies Results Component Value Reference Range Notes HEMOGLOBIN A1C (GLYCOHEMOGLO BIN) Reviewed date:01/12/2024 09:10:56 AM Interpretation: Performing Lab: Notes/Report: HEMOGLOBIN A1C % (HH) 5.3 HEMOGLOBIN A1C (GLYCOHEMOGLO BIN) Reviewed date:07/19/2024 08:45:51 AM Interpretation: Performing Lab: Notes/Report: HEMOGLOBIN A1C % (HH) 5.7 Reason For Referral No Information Medications Medication SIG (Take, Route, Frequency, Duration) Notes Start Date End Date Status Atorvastatin Calcium 80 MG 1 tablet Orally Once a day for 30 day(s) Active Mupirocin 2 % 1 application Externally Two times a day for 14 days 10/23/2020 Not-Taking Vitamin D 50 MCG (1999 UT) 1 tablet Orally Once a day for 30 day(s) Active Ciclopirox Olamine 0.77 % 1 application to affected area Externally to feet Twice a day for 30 days Not-Taki ng Lisinopril 40 MG 1 tablet Orally Once a day for 30 day(s) Active Letrozole 2.5 MG 1 tablet Orally Once a day for 30 day(s) Active Hydrocortisone 2.5 % as directed Externa lly to feet Twice a day for 30 days Active Folic Acid Active HumaLOG Not-Taking Ciclopirox Olamine 0.77 % 1 application Externally Twice a day for 30 days Active Eliquis 5 MG as directed Orally Active Extra Depth Orthopedic Shoes (1 Pair) with Customized Heat Molded Multidensity Innersoles (3 Pair) as directed Dx: NIDDM/Polyneuropathy (E11.42), Hammertoe Foot Deformity (M20.41,M20.42), Preulcerative Skin Lesion(s) (L85.1 10/23/2020 Not-Taking Aspir-81 Active Lantus Not-Taking Levothyroxine Sodium 175 MCG 1 tablet in the morning on an empty stomach Orally Once a day for 30 day(s) Active Clotrimazole-Betamethason e 1-0.05 % 1 application to affected area Externally Twice a day to affected areas on feet for 30 days 11/12/2021 Not-Taking traZODone HCl 50 MG 1 tablet at bedtime as needed Orally Once a day for 30 day(s) Active Extra Depth Orthopedic Shoes (1 Pair) with Customized Heat Molded Multidensity Innersoles (3 Pair) as directed Dx: NIDDM/Polyneuropathy (E11.42), Hammertoe Foot Deformity (M20.41,M20.42), Preulcerative Skin Lesion(s) (L85.1 08/09/2021 Not-Taking Immunizations Vaccine Route Administration Date Status Comme nts COVID-19 Moderna Vaccine Unknown 05/21/2021 Administered 1st vaccine 08/25/20 2nd dose 09/24/20 Influenza Unknown 04/07/2020 Administered Influenza Unknown 02/26/2023 Administered Social History Tobacco Use: Social History Observation Description Date Details (start date - stop date) Current Smoker NA - NA Tobacco use other than smoking: Question Answer Notes Are you an other tobacco user? No Tobacco Control (Standard) Question Answer Notes Tobacco use: Current smoker How often do you smoke cigarettes? Every day How many cigarettes a day do you smoke? 6-10 How soon after you wake up do you smoke your fir st cigarette? 6-30 minutes Are you interested in quitting? Not ready to russell t AUDIT-C (Standard) Question Answer Notes Did you have a drink containing alcohol in the p ast year? 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) Active confirmed Problem 890280254 Hammer toe of le ft foot (M20.42) Active confirmed Problem 82231486 Type 2 diabetes mellitus with polyneuropathy (E11.42) Active confirmed Problem 31262397987538477 Atherosclerosi s of artery of both lower extremities (I70.203) Active confirmed Vital Signs Blood pressure diastolic 75 mm Hg 07/19/2024 Height 5ft 7in in 07/19/2024 Blood pressure systolic 113 mm Hg 07/19/2024 Weight 156 lbs 07/19/2024 BMI 24.43 kg/m2 07/19/2024 Encounters Encounter Location Date Provider Diagnosis [address] [address] 09/08/2023 Amairani Perica Tinea pedis of both feet B35.3 ; Atherosclerosis of artery of both lower extremities I70.203 ; Type 2 diabetes mellitus with polyneuropathy E11.42 and Tinea unguium B35.[address] [address] 01/12/2024 Amairani Perica Tinea pedis of both feet B35.3 ; Atherosclerosis of artery of both lower extremities I70.203 ; Type 2 diabetes mellitus with polyneuropathy E11.42 and Tinea unguium B35.[address] [address] 04/15/2024 Amairani Perica Tinea pedis of both feet B35.3 ; Atherosclerosis of artery of both lower extremities I70.203 ; Type 2 diabetes mellitus with polyneuropathy E11.42 and Tinea unguium B35.[address] [address] 07/19/2024 Amairani Perica Tinea pedis of both feet B35.3 ; Atherosclerosis of artery of both lower extremities I70.203 ; Type 2 diabetes mellitus with polyneuropathy E11.42 and Tinea unguium B35.1 [facility] [address] [address] 09/02/2023 Amairani Perica [address] [address] 01/08/2024 Amairani Jean Assessments Encounter Date Diagnosis (ICD Code) Assessment Notes Treatment Notes Treatment Clinical Notes Section Notes 09/08/2023 Atherosclerosis of artery of both lower extremities (ICD-10 - I70.203) 09/08/2023 Tinea pedis of both feet (ICD-10 - B35.3) 01/12/2024 Atherosclerosis of artery of both lower extremities (ICD-10 - I70.203) 01/12/2024 Tinea pedis of both feet (ICD-10 - B35.3) 04/15/2024 Tinea pedis of both feet (ICD-10 - B35.3) 07/19/2024 Tinea pedis of both feet (ICD-10 - B35.3) 07/19/2024 Atherosclerosis of artery of both lower extremities (ICD-10 - I70.203) 04/15/2024 Atherosclerosis of artery of both lower extremities (ICD-10 - I70.203) 01/12/2024 Type 2 diabetes mellitus with polyneuropathy (ICD-10 - E11.42) 09/08/2023 Type 2 diabetes mellitus with polyneuropathy (ICD-10 - E11.42) 09/08/2023 Tinea unguium (ICD-10 - B35.1) 01/12/2024 Tinea unguium (ICD-10 - B35.1) 04/15/2024 Type 2 diabetes mellitus with polyneuropathy (ICD-10 - E11.42) 07/19/2024 Type 2 diabetes mellitus with polyneuropathy (ICD-10 - E11.42) 07/19/2024 Tinea unguium (ICD-10 - B35.1) 04/15/2024 Tinea unguium (ICD-10 - B35.1) Plan Of Treatment Next Appt Details Provider Name:Amairani campos, 10/18/2024 09:00:00 AM, [address] [facility], [place], [address], Insurance Providers Payer Name Payer Address Payer Phone Subscriber Number Group Number Insured Name Patient Relationship to Insured Coverage Start Date Coverage End Date Medicare National [employer] [address] [place] [address] [id number] Alla Velasquez Self - patient is the insured AARP Secondary to Medicare [address] [place] [id number] Alla Velasquez Self - patient is the insured Medical (General) History Medical History History ICD Code Arthritis Back,Hip,and Knee pain Cancer Diabetic High blood pressure thyroid Measles Mumps Chicken pox Joint implants/screws Surgical History Surgery Date(Month/Year) cholecystectomy 1970 hernia 1979 hysterectomy 2017 knee replacement 2010 Breast Surgery 2018 Hand Surgery 03/12/21 total knee replacement, left 10/29/23 hand surgery 07/29/2024 Hospitalization History Reason Date(Month/Year) [facility]- cut on left leg, infection, celluli tis 06/2023 [facility]- fell, cut head 05/12/21
--- OUTSIDE RECORDS SUMMARY | 2024-08-17 11:51 | XMS_ITS ---
[facility] Address [address] [place] [address] Care Team Providers Care Brush Worker Name Role Phone Ariel Akhtar MD Primary Care Provider Amairani Falcon Unavailable [phone] Allergies No Known Allergies REASON FOR VISIT At Risk Footcare, Painful Nail(s) aggrevated by shoes and causing difficulty standing/walking., Skin Problem Medications Medication SIG (Take, Route, Frequency, Duration) Notes Start Date End Date Status Extra Depth Orthopedic Shoes (1 Pair) with Customized Heat Molded Multidensity Innersoles (3 Pair) as directed Dx: NIDDM/Polyneuropathy (E11.42), Hammertoe Foot Deformity (M20.41,M20.42), Preulcerative Skin Lesion(s) (L85.1 10/23/2020 Not-Taking Clotrimazole-Betamethason e 1-0.05 % 1 application to affected area Externally Twice a day to affected areas on feet for 30 days 11/12/2021 Not-Taking Extra Depth Orthopedic Shoes (1 Pair) with Customized Heat Molded Multidensity Innersoles (3 Pair) as directed Dx: NIDDM/Polyneuropathy (E11.42), Hammertoe Foot Deformity (M20.41,M20.42), Preulcerative Skin Lesion(s) (L85.1 08/09/2021 Not-Taking Mupirocin 2 % 1 application Externally Two times a day for 14 days 10/23/2020 Not-Taking Ciclopirox Olamine 0.77 % 1 application to affected area Externally to feet Twice a day for 30 days Not-Taki ng HumaLOG Not-Taking Ciclopirox Olamine 0.77 % 1 application Externally Twice a day for 30 days Active Lantus Not-Taking Lisinopril 40 MG 1 tablet Orally Once a day for 30 day(s) Active Hydrocortisone 2.5 % as directed Externa lly to feet Twice a day for 30 days Active Levothyroxine Sodium 175 MCG 1 tablet in [...] ast year? No Points 0 Interpretation Negative Vital Signs Height 5ft 7in in 07/19/2024 Weight 156 lbs 07/19/2024 BMI 24.43 kg/m2 07/19/2024 Blood pressure systolic 113 mm Hg 07/19/19 25 Blood pressure diastolic 75 mm Hg 025 Encounters Encounter Location Date Provider Diagnosis [facility] [address] 07/19/2024 Amairani Jean Tinea pedis of both feet B35.3 ; Atherosclerosis of artery of both lower extremities I70.203 ; Type 2 diabetes mellitus with polyneuropathy E11.42 and Tinea unguium B35.1 Assessments Encounter Date Diagnosis (ICD Code) Assessment Notes Treatment Notes Treatment Clinical Notes Section Notes 07/19/2024 Tinea pedis of both feet (ICD-10 - B35.3) 07/19/2024 Atherosclerosis of artery of both lower extremities (ICD-10 - I70.203) 07/19/2024 Type 2 diabetes mellitus with polyneuropathy (ICD-10 - E11.42) 07/19/2024 Tinea unguium (ICD-10 - B35.1) Plan Of Treatment Next Appt Details Follow Up: 3 Months, Reason: Provider Name:Amairani campos, 10/18/2024 09:00:00 AM, [address] [facility], [place], [address], Procedure Notes * Category Sub-Category Detail Notes Debride Nail 6-10 Nail debridement Due to the cl inical pathology outlined in the exam findings, performance of this nail treatment is medically necessary as its management by an unskilled/untrained nonprofessional would put this patients foot and overall health at risk. Therefore, debridement to affected nail(s), as described in exam ( TA, T1, T2, T3, T4, T5, T6, T7, T8, T9, ), was performed exclusively by the physician of record to reduce/remove overall nail length, girth, thickness, subungual debris, and necrotic tissue, by manual and/or electrical means through the use of a nail nipper and/or dremel-type centerless grinder set up operator, to a more viable healthy nail plate or bed tissue 6-10 nails in total. Silver nitrate was used for any petechial bleeding as necessary. Definitive antifungal treatment options, both pharmaceutical and surgical, have been reviewed and discussed with the patient. The patient solely prefers the use of intermittent/as needed professional debridement services for their nail condition and understands the need for additional periodic treatments to maintain effectiveness in symptomatic relief - 29857 Keratoma Treatment Parring or Cutting o f Benign Hyperkeratotic Lesion(s) (-57) More than 4 Lesions - Due to the at risk nature of the patients medical condition as documented in the exam findings, performance of this keratoderma treatment is medically necessary as its management by an unskilled/untrained nonprofessional would put this patients foot and overall health at risk. Therefore, the benign hyperkeratotic lesions, ( 6 ) in total, locations as stated and described in the exam ( Sub met 1, 5, Heels B/L,), were pared, and/or cut utilizing a sterile 15 blade, tissue nippers, and/or power dremel instrumentation by the physician of record - 73423 Progress Notes * Kathrine ANDRADEOB:1950 ([age] yo F)Acc No.[id number]:07/19/2024 Progress Note Patient:?Alla ANDRADE Provider:?Amairani Jean DPM :1950???Age:74 Y???Sex:Female D ate:07/19/2024 Address: [address] [facility], [facility] Pcp:Ariel Akhtar MD Subjective: * Chief Complaints: * ???At Risk FootcarePainful N ail(s) aggrevated by shoes and causing difficulty standing/walking.Skin Problem * HPI: ???At Risk footcare:?Pt States Last PCP Visit:?Date?03/23/2024 ???Skin problems:?Location:?B/L .?Course:?improved , at 75 %.?Treatments:?Medication (Ciclopirox Olamine 0.77 Cream).? * ROS:?General/Constitutional:?Nausea?denies.?Vomiting?denies.?Hunger [...] Surgery 2019Hand Surgery 03/12/21total knee replacement, left 10/29/23and surgery 07/29/2024 * Hospitalization/Major Diagno stic Procedure:?[facility]- fell, cut head 05/12/21[facility]- cut on left leg, infection, cellulitis 06/2023 * Family History:?Mother: dece ased, cancer, high blood pressure, diagnosed with Diabetic - NIDDM.?Father: .?Siblings: arthritis, cancer.?Spouse: alive.? * Social History:?Tobacco Use:?Tobacco use other than smoking?Are you an other tobacco user??No ?Tobacco Control (Standard)?Tobacco use:?Current smoker ?How often do you smoke cigarettes??Every day ?How many cigarettes a day do you smoke??6-10 ?How soon after you wake up do you smoke your first cigarette??6-30 minutes ?Are you interested in quitting??Not ready to quit ???Drugs/Alcohol:?Drugs?Have you used drugs other than those for medical reasons in the past 12 months??No ???Miscellaneous:?Caffeine: yes, frequency:, , 1-2 cups per day. ?Children: yes. ?Exercise: no. ?Marital status: . ?Occupation: [employer], Works Part-time. ???Drug/Alcohol:?AUDIT-C (Standard)?Did you have a drink containing alcohol in the past year??No ?Points?0 ?Interpretation?Negative * Medications:?TakingFolic Aci d Aspir-81 Eliquis 5 MG Tablet as directed Orally traZODone HCl 50 MG Tablet 1 tablet at bedtime as needed Orally Once a day Levothyroxine Sodium 175 MCG Tablet 1 tablet in the morning on an empty stomach Orally Once a day Vitamin D 50 MCG (1999) Tablet 1 tablet Orally Once a day [...] Twice a day Taking Folic Acid Taking Aspir-81 Taking Eliquis 5 MG Tablet as directed Orally Taking traZODone HCl 50 MG Tablet 1 tablet at bedtime as needed Orally Once a day Taking Levothyroxine Sodium 175 MCG Tablet 1 tablet in the morning on an empty stomach Orally Once a day Taking Vitamin D 50 MCG (1999 UT) Tablet 1 tablet Orally Once a [...] and reconciled with the patient * Allergies:?N.K.D.A.yes[Aller eleazar Verified] Objective: * Vitals:?Ht: 5ft 7in, Wt:156, BMI:24.43, Shoe size: 9.5-10, BP:113/75mm Hg, BS: 106, Ht-cm: 170.18 cm, Wt-k.76 kg. * ???Past Orders: ???Lab:HEMOGLOBIN A1C (GLYCO HEMOGLOBIN) (Order Date - 03/23/2024) (Collection Date & Time - 03/23/2024 08:45 AM) ? Value Reference Range ?HEMOGLOBIN A1C % (HH) 5.7 * Examination: ???Ophthalmology Referral: ?DIABETES EYE EXAM?Procedure Performed:?Yes ?Date of Exam Performed?06/25/2023 ?Findings of Diabetic Eye Exam:?no retinopathy?Dermatologic: ?SKIN FINDINGS:?Skin exam reveals Keratotic lesion(s) located at, Sub met 1, 5, Heels B/L, skin shows approximately 75 percent LESS, sign(s) of, erythema, scaling, in a moccasin [...] no pain on palpation due to neuropathy, TA, T1, T2, T3, T4, T5, T6, T7, T8, T9.?General Examination: ?FOOT EXAM:?Lower Extremity Neurological Exam performed:?Yes ?Visual exam of foot performed:?Yes ?Date?07/19/2024 ?Sensory testing performed:?sensations diminished ?Footwear Evaluation?Footwear Evaluation performed:?Yes?Orthopedic: ?MUSCLE STRENGTH:?5/5 all groups in a symmetrical fashion, B/L.?FOOTWEAR:?fair condition.? Assessment: * Assessment: 1.?Tinea pedis of both feet - B35.3 (Primary)???Specify :Acute problem, Uncomplicated (3)???2.?Atherosclerosis of artery of both lower extremities - I70.203???3.?Type 2 diabetes mellitus with polyneuropathy - E11.42???4.?Tinea unguium - B35.1??? Plan: * Treatment: * Procedures:?Debride Nail 6-10:?Nail debridement?Due to the clinical pathology outlined in the exam findings, performance of this nail treatment is medically necessary as its management by an unskilled/untrained nonprofessional would put this patients foot and overall health at risk. Therefore, debridement to affected nail(s), as described in exam ( TA, T1, T2, T3, T4, T5, T6, T7, T8, T9, ), was performed exclusively by the physician of record to reduce/remove overall nail length, girth, thickness, subungual debris, and necrotic tissue, by manual and/or electrical means through the use of a nail nipper and/or dremel-type centerless grinder set up operator, to a more viable healthy nail plate or bed tissue 6- 10 nails in total. Silver nitrate was used for any petechial bleeding as necessary. Definitive antifungal treatment options, both pharmaceutical and surgical, have been reviewed and discussed with the patient. The patient solely prefers the use of intermittent/as needed professional debridement services for their nail condition and understands the need for additional periodic treatments to maintain effectiveness in symptomatic relief - 33237.?Keratoma Treatment:?Parring or Cutting of Benign Hyperkeratotic Lesion(s)?(-57) More than 4 Lesions - Due to the at risk nature of the patients medical condition as documented in the exam findings, performance of this keratoderma treatment is medically necessary as its management by an unskilled/untrained nonprofessional would put this patients foot and overall health at risk. Therefore, the benign hyperkeratotic lesions, ( 6 ) in total, locations as stated and described in the exam ( Sub met 1, 5, Heels B/L,), were pared, and/or cut utilizing a sterile 15 blade, tissue nippers, and/or power dremel instrumentation by the physician of record - 06132.? * Procedure Codes:?40602 DEBRI DE NAIL, 6 OR MORE, Modifiers: XS 47671 TRIM SKIN LESIONS, OVER 4, Modifiers: XS 3044F HG A1C LEVEL LT 7.0% * Preventive Medicine:? ??Counseling:?Tobacco use:?Type of Tobacco Use Cessation Counseling provided?Smoking cessation education ?Patient counseled on the dangers of smoking and urged to quit:?07/19/2024 ?Discussion:?-13: Office or other outpatient visit for [...] office.?Tinea Pedis:?Given recent successful results to treatment, AGAIN, The patient is to cont the rx cream as directed, PREVENTIVE STRATEGIES were reviewed with the patient to avoid recurrent issues ..? ??Screening/Special Tests:?Fall Risk?Assessment:?Performed ?Screening:?No falls in the past year ?FALLS: Screening for Future Fall Risk?Have you had two or more falls in the past year??No * Follow Up:?3 Months * Images: * Sign off status: Completed true * Provider:?Amairani Jean DPM Date:?03/2025 Generated for Tawnya rosario/Nuzhat/Koby on:?08/17/2024 11:50 AM EDT History and Physical Notes * HPI (History of Present Illness) Category Sub-Category Detail Notes Category Not es Skin problems Location: B/L Course: improved , at 75 % Treatments: Medication (Ciclopir ox Olamine 0.77 [...] exam reveal s Keratotic lesion(s) located at, Sub met 1, 5, Heels B/L, skin shows approximately 75 percent LESS, sign(s) of, erythema, scaling, in a moccasin fashion, no fissure(s) present, B/L Orthopedic FOOTWEAR: fair condition MUSCLE STRENGTH: 5/5 all groups in a symmetrical fashion, B/L General Examination FOOT EXAM: Lower Extrem ity Neurological Exam performed:: Yes Visual exam of foot performed:: Yes Date: 07/19/2024 Sensory testing performed:: sensations d iminished Footwear [...] no pain on palpation due to neuropathy, TA, T1, T2, T3, T4, T5, T6, T7, T8, T9
--- OUTSIDE RECORDS SUMMARY | 2024-08-17 11:51 | XMS_ITS ---
Author Organization Ariel Akhtar MD Address [address] [place], [place] [id number] Care Team Providers Care Lifestyle Consultant Name Role Phone Ariel Akhtar Primary Care [...] Date Provider Diagnosis Ariel Akhtar MD [address] [facility] [address] [place] [phone] 04/26/2024 Ariel Akhtar Laceration of left lower [...] Provider Name:Ariel Johnson ier, 08/26/2024 10:45:00 AM, [address], [address], [place], [phone], Provider Name:Ariel Johnson ier, 02/22/2025 07:15:00 AM, [address], [address], [place], [phone], Provider Name:Ariel Johnson ier, 03/01/2025 09:30:00 AM, [address], [address], [place], [place], [phone], Progress Notes * Kathrine ANDRADEOB:1950 ([age] yo F)Acc No.[id number]:04/26/2024 Patient:?EvaMsiaelil Provider:?Ariel Akhtar MD :1950???Age:73 Y???Sex:Female D ate:04/26/2024 Address: [facility] Subjective: * Chief Complaints: * ???F/U Er Visit r leg lacera tion * HPI: ???Symptom(s):? patient is a 73 yo female here for ER follow up, went to big lots and cart locked up and she walked into it. and lacerated right leg/ had steri strips and glu. * ROS:?General/Constitutional:?Denies?Chills.?Denies?Fatigue.?Denies?Fever.?Denies?Headache.?ENT:?Patient denies?decreased sense of smell, any loss of taste, sore throat.?Denies?Sore throat.?Respiratory:?Denies?Cough.?Denies?Shortness of breath at rest.?Denies?Shortness of breath with exertion.?Gastrointestinal:?Denies?Diarrhea.?Denies?Nausea.?Musculoskeletal:?Patient denies?muscle aches.?Peripheral Vascular:?Patient denies?red and blue toes.? * Medical History:? * Surgical History:? * Hospitalization/Major Diagno stic Procedure:? * Medications:?TakingCephalexi n 250 MG Capsule 1 capsule Orally every [...] NEEDED ONCE DAILY Vitamin D 50 MCG (1999 UT) Capsule 1 capsule Orally Once a dayLisinopril [...] ONCE DAILY Taking Vitamin D 50 MCG (1999 UT) Capsule 1 capsule Orally Once a dayTaking [...] as neededNot-Taking/PRN HumaLOG KwikPen 100 UNIT/ML Solution Pen- injector 4-12 units Subcutaneous TIDNot-Taking/PRN Lantus SoloStar 100 UNIT/ML Solution Pen-injector 40 units Subcutaneous HSNot-Taking/PRN Cyclobenzaprine HCl 5 MG Tablet 1 tablet at bedtime as needed Orally 3 times a dayNot-Taking/PRN traMADol HCl 50 MG Tablet 1 tablet as needed Orally every 8 hours as neededNot-Taking/PRN Lisinopril 40 MG Tablet 1 tablet Orally Once a dayMedication List reviewed and reconciled with the patient * Allergies:?N.K.D.A.yes[Aller gies Verified] Objective: * Vitals:?Ht: 67.5, Wt:163, BM I:25.15, BP:124/60 weight is up 4 pounds since 02-26-24. * Examination: ???General Examination: ?GENERAL APPEARANCE:?alert, well hydrated, in no distress.?SKIN:?abnormal with a 3 inch laceration with glu and steristrips. wound looks clean..? Assessment: * Assessment: 1.?Laceration of left lower extremity, subsequent encounter - A47.890V (Primary)? Plan: * Treatment: * Procedure Codes:? * * Sign off status: Completed true * Provider:?Ariel Akhtar MD Date:?06/26/2023 Generated for Tawnya rosario/Nuzhat/eTneydasmitting on:?08/17/2024 11:51 AM EDT History and Physical Notes * [...]
[2024-08-17 14:02] LABS: Reflex LDLD? No
== END 2024-08-17 10:07 | disposition home or self-care (01) ==
LOC: HO.LNP 10:06
PROVIDERS: Visit Provider Internal Medicine
DX: E11.9 Type 2 diabetes mellitus without complications (principal); E78.5 Hyperlipidemia, unspecified
CPT/HCPCS: 80061; 80076; 82947; 83036

== ENCOUNTER 2025-01-20 08:36 | Outpatient (AMB) | payer MEDICARE, SELFPAY ==
--- OUTSIDE RECORDS SUMMARY | 2024-08-17 03:15 | XMS_ITS ---
Author Organization Ariel Akhtar MD Address [address] [place], [place] [phone] Care Team Providers Care Shellfish Grower Name Role Phone Ariel Akhtar Primary Care Provider Results Component Value Reference Range Notes Liver Panel Reviewed date:08/18/2024 07:05:22 PM Interpretation: Performing Lab:[facility], [address] [place] [phone] Notes/Report: Bilirubin Total 0.4 0.0-1.0 mg/dL Bilirubin Direct 0.1 0.0-0.5 mg/dL Aspartate Amino Transferase 34 5-31 U/L Alanine Aminotransferase 23 0-31 U/L Total Protein 7.7 6.5-8.0 g/dL Albumin Level 3.7 3.5-5.0 g/dL Alkaline Phosphatase 98 39-117 U/L Glucose Fasting Reviewed date:08/18/2024 07:04:15 PM Interpretation: Performing Lab:[facility], [address] [place] [phone] Notes/Report: Glucose Fasting 111 60-99 mg/dL A fasting glucose from 100-125 mg/dl is considered impaired (pre-diabetes). Lipid Panel with Reflex Reviewed date:08/17/2024 02:05:22 PM Interpretation: Performing Lab:[facility], [address] [place] [phone] Notes/Report: Triglycerides 97 <150 mg/dL Desirable Triglyceride: [...] Reviewed date:08/17/2024 12:11:33 PM Interpretation: Performing Lab:[facility], [address] [place] [phone] Notes/Report: Hemoglobin A1c % 5.8 <6.0 % [...] average glucose, using the formula of the K9P-Syjbymg Average Glucose study (ADAG), Diabetes Care, Vol.31,#8, 2007 REASON FOR VISIT fasting lipds Encounters Encounter Location Date Provider Diagnosis Ariel Akhtar MD [address] [place] [address] Drive [address] [place], [place] [phone] 08/17/2024 Ariel Akhtar Type 2 diabetes mellitus without complications E11.9 and Hyperlipidemia, unspecified hyperlipidemia type E78.5 Assessments Encounter Date Diagnosis (ICD Code) Assessment Notes Treatment Notes Treatment Clinical Notes Section Notes 08/17/2024 Type 2 diabetes mellitus without complications (ICD-10 - E11.9) 08/17/2024 Hyperlipidemia, unspecified hyperlipidemia type (ICD-10 - E78.5) Plan Of Treatment Next Appt Details Provider Name:Ariel Johnson ier, 02/22/2025 07:15:00 AM, [address] [place] [address], [address], [place], [place], [phone], Provider Name:Ariel Johnson ier, 03/01/2025 09:30:00 AM, [address] [place] [address], [address], [place], [place], [phone], Progress Notes * Kathrine ANDRADEOB:1950 ([age] yo F)Acc No.[id number]:08/17/2024 Progress Note Patient: Alla ALVAREZ Provider: Amilcar Akhtar MD :1950 A ge:74 Y S ex:Female Date:08/17/2024 Address: [address], [place], [place] Subjective: * Chief Complaints: * 1 . [...] MD Date: 0 08/17/2024 Generated for Tawnya rosario/Nuzhat/Koby on: 0 01/20/2025 08:56 AM EDT
--- OUTSIDE RECORDS SUMMARY | 2024-10-25 09:45 | XMS_ITS ---
Author Organization [facility] Address [address] [place] [address] Care Team Providers Care Pollution Control Chemist Name Role Phone Ariel Akhtar MD Primary Care Provider Amairani Falcon Unavailable [phone] Encounters Encounter Location Date Provider Diagnosis [address] [address] 10/25/2024 Amairani Jean Plan Of Treatment Next Appt Details Provider Name:Amairani campos, 04/04/2025 09:00:00 AM, [address] [place] [address], [place], [address], Progress Notes * Kathrine ANDRADEOB:1950 ([age] yo F)Acc No.[id number]:10/25/2024 Progress Note Patient: Misael ALVAREZil Provider: Desmond Jean DPM :1950 A ge:74 Y S ex:Female Date:10/25/2024 Address:[address] [facility] Pcp:Ariel Akhtar MD Subjective: * Chief Complaints: [...] 10/25/2024 Generated for Tawnya rosario/Nuzhat/Koby on: 0 01/20/2025 08:56 AM EDT
--- NOTE | 2025-01-20 08:50 | A.OFFVIS_ITS ---
Vital Signs 01/20/25 08:57 Height 5 ft 7 in Weight 181 lb BMI 28.3 BP 167/72 H Blood Pressure Location Rt brachial Position Sitting Pulse 68 Intake Visit Reasons: 6 m f/up breast Intake Note: Patient is seen in office for 6 month follow up visit, breast exam. Patient c/o: Rt nipple feels indented. Denies nipple discharge. MRI:02/16/24 mm:01/27/24 (Due Soon) Will call to schedule. Tire Service Supervisor Required: No Accompanied by: Self / Same As Patient Allergies codeine Allergy (Mild, Verified 01/20/25 08:56) Nausea and Vomiting oxycodone (From OxyContin) Allergy (Mild, Verified 01/20/25 08:56) Nausea and Vomiting HPI Comments Details: 74-year-old female patient returning for breast cancer follow-up examination. She was found to have 2 abnormal densities in the right breast on mammogram of 09/08/2019. Subsequent ultrasound guided core biopsy revealed invasive ductal carcinoma, ER/VT positive, HER2 Zacarias negative. She underwent a right breast lumpectomy with sentinel node biopsy on 09/15/2019. Pathology confirmed invasive ductal carcinoma, grade 2, multifocal with DCIS, intermediate grade, margins ne gative for invasive or in-situ cancer, 0 of 1 sentinel nodes with metastatic disease (pT1cN0 (sn)(i-)). She underwent radiation therapy at [facility] which was completed on 12/17/2019. She was started on letrozole 2.[address] Helton. On her previous visit she was noted to have a palpable mass in the left breast in the subareolar location approximately the 3 o'clock position. She was subsequently sent for a diagnostic mammogram and ultrasound. This was performed on 03/31/2023 and revealed extensive ductal ectasia in the left breast corresponding to the region of abnormality. Her most recent mammogram of 01/27/2024 revealed no mammographic evidence of malignancy (BI-RADS 2). Six- month follow-up breast MRI performed at [place] on 02/16/2024 revealed no MR evidence of malignancy in either breast (BI-RADS 2). She is now due for her annual mammogram. She is awaiting a CT of the abdomen and pelvis for evaluation of her aortic aneurysm. [facility] Medical History History of trigger finger AAA (abdominal aortic aneurysm) Presence of stent in artery Hypertension Diabetes High cholesterol Hypothyroid Invasive ductal carcinoma of right breast Surgical History H/O left knee surgery History of lumpectomy of right breast (09/15/19) History of hysterectomy History of right knee surgery History of hernia repair History of cholecystectomy History of cataract surgery Family History Brother History of bladder cancer Brother History of bladder cancer Mother Diabetes Heart abnormality History of bladder cancer Pacemaker Father Stroke Heart attack Social History Household Members: Spouse Housing: House Are you a primary pet care associate to a significant other at home: No Do you presently have visiting nurse or other home services: No Alcohol intake: former Patient Tobacco Use Status: Current everyday Tobacco user Tobacco use type: Cigarette Cigarette Packs Per Day: 0.5 service: No Current occupational status: employed 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 Current occupational exposures/hazards: Yes (Stress) Sexual orientation: Straight/Heterosexual Gender identity: Female Review of Systems Const Denies chills, Denies fever(s), Denies headache(s), Denies poor appetite and Reports weight loss ENT Denies dizziness and Denies headache(s) Card Denies chest pain, Denies rapid heart rate, Denies palpitations and Denies slow heart rate Resp Denies chest congestion, Reports cough, Denies pain on inspiration and Denies wheezing GI Denies abdominal pain, Denies bloating, Denies change in stool character, Denies constipation, Denies diarrhea, Denies nausea, Denies vomiting and Denies hematemesis Musc Denies back pain, Reports arthralgias, Reports joint swelling (Left knee) and Denies numbness Skin/Breast Denies breast swelling, Denies breast skin changes, Denies breast pain, Denies breast mass, Denies change in pigmentation, Denies erythema and Denies rash Neuro Denies dizziness, Denies headache(s) and Denies numbness Psych Denies anxiety and Denies depression Endo Denies palpitations Roque/Lymph Reports easy bleeding, Reports easy bruising and Denies lymphadenopathy Aller/Immun Denies wheezing Physical Exam Vital Signs: Last Vital Signs Pulse 68 01/20/25 08:57 BP 167/72 H 01/20/25 08:57 BMI result Body Mass Index 28.3 Const General: no acute distress and well developed Nutritional Appearance: well nourished Orientation/consciousness: patient oriented x3 Limitations: no limitations Chest Other: right breast: Well-healed incision in the upper outer quadrant with some slight retraction of the incision. No palpable mass, new skin change other than radiation change, nipple retraction, nipple discharge, or enlarged lymph nodes. Left breast: No skin change, no nipple retraction, no nipple discharge, no palpable mass or no enlarged lymph nodes Resp Other: breathing comfortably on room air, no respiratory distress GI Inspection: Yes normal to inspection Skin Other: warm and dry, no rash Neuro Other: Mobility Assessment: 1. 3 meter assessment time (seconds) 6 2. Gait observations: Normal balance and gait General: patient oriented x3 Extrem Other: no edema in arm or hands, normal range of motion Assessment & Plan Assessment & Plan (1) Invasive ductal carcinoma of right breast: Code(s): C50.911 - Malignant neoplasm of unspecified site of right female breast Category: Medical (2) Left breast mass: Code(s): N63.20 - Unspecified lump in the left breast, unspecified quadrant Category: Surgical Qualifiers: Breast mass location: upper outer quadrant Qualified Code(s): N63.21 - Unspecified lump in the left breast, upper outer quadrant Plan 74-year-old female patient status post right breast lumpectomy with sentinel node biopsy for invasive ductal carcinoma right breast, ER/VT positive, HER2 Zacarias negative with negative margins and 0 of 2 sentinel nodes with metastatic disease performed on 09/15/2019. She completed radiation therapy in December 2019 and is now on letrozole 2.5 mg q.day. Her most recent mammogram of 01/27/2024 revealed no mammographic evidence of malignancy (BI-RADS 2). Six-month follow-up breast MRI performed on 02/16/2024 revealed no MR specific evidence of malignancy (BI-RADS 2). She is now due for her annual mammogram. Examination today revealed no suspicious findings in either breast and no enlarged lymph nodes. Recommend follow-up examination in 1 year. She is welcome to call sooner for any new concerns. Orders: Orders MM screening mammo BI 01/27/25 C50.911 - Malignant neoplasm of unspecified site of right female breast Coding Level of Care Code Est Pt Level 3 (83886) Complex EM visit Add On G2211 Diagnoses Invasive ductal carcinoma of right breast C50.911 Mass of upper outer quadrant of left breast N63.21 Breast mass location: upper outer quadrant
--- OUTSIDE RECORDS SUMMARY | 2025-01-20 08:56 | XMS_ITS | Clinical Summary ---
Author Organization [facility] Address [address] [place] [address] Phone Care Team Providers Care Sand Blaster Name Role Phone Unavailable Primary Care Provider Unavailabl e Surgical History Surgery Date Site/Laterality Comments CHOLECYSTECTOMY 1970 PROCEDURE: HISTORICAL CHOLECYSTECTOMY TOTAL KNEE ARTHROPLASTY 2014 Right PROCEDURE: HISTORICAL TOTAL KNEE REPLACE TUBAL LIGATION 1975 PROCEDURE: HISTORICAL TUBAL LIGATION TONSILLECTOMY PROCEDURE: HISTORICAL TONSILLECTOMY HERNIA REPAIR 2011 PROCEDURE: HISTORICAL HERNIA REPAIR/UMB CATARACT EXTRACTION 2007 Bilateral PROCEDURE: HISTORICAL CATARACT REMOVAL MULTIPLE TOOTH EXTRACTIONS PROCEDURE: HISTORICAL DENTAL EXTRACTION Medical History Medical History Date Comments 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 08/26/2014 DX:Uncontrolled type 2 DM wi th peripheral circulatory disorder Hypothyroid 08/26/2014 DX:Hypothyroid Hypercholesteremia 08/26/2014 DX:Hyperchole steremia Family History Medical History Relation Name Comments Heart attack Father age 38 Other: Other Maternal Grandmother ovarian ca Diabetes Mother bladder ca, pac emaker Relation Name Status Comments Father Maternal Grandmother Mother Social History Tobacco Use Types Packs/Day Years Used Date Smoking Tobacco: Every Day Cigarettes 0.5 44.6 Started: 06/09/1980 Alcohol Use Standard Drinks/Week Comments Not Asked 0 (1 standard drink = 0.6 oz pur e alcohol) Comments Unknown Sex and Gender Information Value Date Recorded Sex Assigned at Female 01/17/2025 6:36 PM EDT Legal Sex Female 3:44 PM EST Gender Identity Not on file Sexual Orientation Not on file Obstetrics History Plan of Treatment Upcoming Encounters Date Type Department Care Team (Late st Contact Info) Description 01/27/2025 8:00 AM EDT Appointment [facility] Scan [address] [place] [address] Health Maintenance Due Date Last Done Comments Breast Cancer Screening 1950 Diabetes: Annual GFR (Glomer ular Filtration Rate) 1950 Diabetes: Annual Foot Exam 1960 Diabetes: Annual Retina Eye Exam 1960 DTaP,Tdap,and Td Vaccines (1 - Tdap) 1969 Pneumococcal Vaccine: 50+ Ye ars (1 of 2 - PCV) 1969 Zoster Vaccines (1 of 2) 2000 RSV Immunization Adult Patie nts (1 - Risk 60-74 years 1-dose series) 2010 Cholesterol Screening (Lipid Panel) 05/08/2022 Colorectal Cancer Screening: Stool Based Tests (FOBT/FIT) 05/08/2022 Falls Risk Assessment 05/08/2022 Hepatitis C Screening 05/08/2022 Medicare Annual Wellness Visit 05/08/2022 Osteoporosis Screening (Bone Density Screening) 05/08/2022 Social Influencers of Health Screening 05/08/2022 Diabetes: Annual Urine Albumin-Creatinine Ratio (uACR) 05/22/2022 Diabetes: Blood Sugar Contro l Test (HGBA1C) 05/22/2022 COVID-19 Vaccine (1 - 2023-2 5 season) 2024 Depression Screening 06/09/2024 Influenza Vaccine (#1) 2025 HIB Vaccines Aged Out No longer eligi ble based on patient's age to complete this topic HPV Vaccines Aged Out No longer eligi ble based on patient's age to complete this topic Hepatitis A Vaccines Aged Out No long er eligible based on patient's age to complete this topic Hepatitis B Vaccines Aged Out No long er eligible based on patient's age to complete this topic IPV Vaccines Aged Out No longer eligi ble based on patient's age to complete this topic MMR Vaccines Aged Out No longer eligi ble based on patient's age to complete this topic Meningococcal ACWY Vaccine Aged Out N o longer eligible based on patient's age to complete this topic Meningococcal B Vaccine Aged Out No l onger eligible based on patient's age to complete this topic RSV Immunization Patients Un joseph 20 months Aged Out No longer eligible b ased on patient's age to complete this topic Varicella Vaccines Aged Out No longer eligible based on patient's age to complete this topic Insurance MEDICARE [facility]
--- OUTSIDE RECORDS SUMMARY | 2025-01-20 08:56 | XMS_ITS | Patient Health Record ---
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) Active confirmed Problem 90095576 Encounter for ot her preprocedural examination (Z01.818) Active confirmed Problem 451666173 alf (curre nt) use of insulin (Z79.4) Active confirmed Plan Of Treatment Future Test Test Name Order Date COLONOSCOPY 12/03/2017 COLONOSCOPY 10/11/2021 Insurance Providers Payer Name Payer Address Payer Phone Subscriber Number Group Number Insured Name Patient Relationship to Insured Coverage Start Date Coverage End Date MEDICARE OF [place] [address] [place] [id number] [id number] LYNSEY ANDRADE Self - patient is the insured [facility] SU[employer]LEMENTAL PLAN [address] [place] [address] [id number] LYNSEY ANDRADE Self - patient is the insured Medical (General) History Medical History History ICD Code diabetes mellitus hypothyroidism elevated cholesterol uterine cancer hypertension breast cancer 2019 abdominal aortic aneurysm Surgical History Surgery Date(Month/Year) right knee replacement cholecystectomy tubal ligation hysterectomy hernia repair lumpectomy right left leg stent
[2025-01-20 08:57] VITALS: BP 167/72; PULSE 68; BMI 28.3
== END 2025-01-20 09:07 | disposition home or self-care (01) ==
LOC: HO.HGS 08:44
PROVIDERS: PCP Internal Medicine; Visit Provider Surgery
DX: C50.911 Malignant neoplasm of unspecified site of right female breast (principal); N63.21 Unspecified lump in the left breast, upper outer quadrant
CPT/HCPCS: 99213; G2211

== ENCOUNTER → 2025-01-20 08:36 | Outpatient (BNVA) | payer MEDICARE, SELFPAY | PROVIDERS: PCP Internal Medicine; Visit Provider Surgery | DX: C50.911 Malignant neoplasm of unspecified site of right female breast (principal); N63.21 Unspecified lump in the left breast, upper outer quadrant; Z17.0 Estrogen receptor positive status [ER+]; Z17.32 Human epidermal growth factor receptor 2 negative status; Z98.890 Other specified postprocedural states | CPT/HCPCS: 99212 ==

== ENCOUNTER 2025-02-22 11:17 | Outpatient (REF) | payer MEDICARE, SELFPAY ==
--- OUTSIDE RECORDS SUMMARY | 2024-04-22 06:21 | XMS_ITS ---
Author Organization Ariel Akhtar MD Address [address] [place] [phone] Care Team Providers Care Equipment Installer Name Role Phone Ariel Akhtar Primary Care Provider [phone] Encounters Encounter Location Date Provider Diagnosis Ariel Akhtar MD [address] [facility] [address] [place] [phone] 04/22/2024 Ariel Akhtar Plan Of Treatment Next Appt Details Provider Name:Ariel Johnson ier, 03/01/2025 09:30:00 AM, [address] [facility], Suite [facility], [place], [place], [phone], Progress Notes * Kathrine ANDRADEOB:1950 ([age] yo F)Acc No.[id number]:04/22/2024 Patient: Alla Agosto :1950 A ge:73 Y S ex:Female Address: [address], [place], [address] * true * Date: Generated for Tawnya rosario/Nuzhat/Koby on: 0 02/22/2025 03:23 PM EDT
--- OUTSIDE RECORDS SUMMARY | 2024-04-26 07:30 | XMS_ITS ---
Author Organization Ariel Akhtar MD Address [address] [place], [place] [phone] Care Team Providers Care Hand Thermal Cutter Name Role Phone Ariel Akhtar Primary Care [...] Location Date Provider Diagnosis Ariel Akhtar MD [address] [place] [address] [place] [phone] 04/26/2024 Ariel Akhtar Laceration of left lower [...] Name:Ariel Johnson ier, 03/01/2025 09:30:00 AM, [address], [address], [place], [place], [phone], Progress Notes * Kathrine ANDRADEOB:1950 ([age] yo F)Acc No.[id number]:04/26/2024 Patient: Alla gAosto Provider: Amilcar Akhtar MD :1950 A ge:73 Y S ex:Female Date:04/26/2024 Address: [address], [place] [address] LICENSE OF [facility] Subjective: * Chief Complaints: * F /U [...] of left lower extremity, subsequent encounter - S81.556I (Primary) Plan: * Treatment: * Procedure Codes: * * Sign off status: Completed true * Provider: Amilcar Akhtar MD Date: 06/26/2023 Generated for Tawnya rosario/Nuzhat/Maliasmitting on: 0 02/22/2025 03:25 PM EDT History and Physical Notes * [...]
--- OUTSIDE RECORDS SUMMARY | 2024-08-17 03:15 | XMS_ITS ---
Author Organization Ariel Akhtar MD Address [address] [place], [place] [id number] Care Team Providers Care Senior Benefits Manager Name Role Phone Ariel Akhtar Primary Care Provider [phone] Results Component Value Reference Range Notes Liver Panel Reviewed date:08/18/2024 07:05:22 PM Interpretation: Performing Lab:[facility], [address] [place] [phone] Notes/Report: Bilirubin Total 0.4 0.0-1.0 mg/dL Bilirubin Direct 0.1 0.0-0.5 mg/dL Aspartate Amino Transferase 34 5-31 U/L Alanine Aminotransferase 23 0-31 U/L Total Protein 7.7 6.5-8.0 g/dL Albumin Level 3.7 3.5-5.0 g/dL Alkaline Phosphatase 98 39-117 U/L Glucose Fasting Reviewed date:08/18/2024 07:04:15 PM Interpretation: Performing Lab:[facility], [address] [place] [phone] Notes/Report: Glucose Fasting 111 60-99 mg/dL A fasting glucose from 100-125 mg/dl is considered impaired (pre-diabetes). Lipid Panel with Reflex Reviewed date:08/17/2024 02:05:22 PM Interpretation: Performing Lab:[facility], [address] [place] [phone] Notes/Report: Triglycerides 97 <150 mg/dL Desirable Triglyceride: less than 150 mg/dL Borderline High Triglyceride 150-199 mg/dL High Triglyceride: 200-499 mg/dL Very High Triglyceride: greater than or equal to 5OO mg/dL Cholesterol 122 <200 mg/dL Desirable Cholesterol: less than 200 mg/dL Borderline High Cholesterol: 200-239 mg/dL High Cholesterol: greater than 239 mg/dL LDL Cholesterol Calculated 58 <100 mg/dL Desirable LDL: less than 100 mg/dL Near Optimal/Above Optimal LDL: 110-129 mg/dL Borderline High LDL: 130-159 mg/dL High LDL: 160-189 mg/dL Very High LDL: greater than or equal to 190 mg/dL HDL Cholesterol 45 >40 mg/dL Desirable HDL: greater than 40 mg/dL Note: This HDL assay may give artificially low results in patients with liver disease. Hemoglobin A1c Reviewed date:08/17/2024 12:11:33 PM Interpretation: Performing Lab:[facility], [address] [place] [phone] Notes/Report: Hemoglobin A1c % 5.8 <6.0 % Hemoglobin A1C Reference Range Adults: 4.8 - 6.0 % Non diabetic: < 6.0 % Goal: < 7.0 % Additional Action Suggested: > 8.0 % Note: Hemoglobin A1c results are invalid for patients with abnormal amounts of HbF. Blood transfusions may impact the HbA1c concentration in the patient sample. Estimated Average Glucose 120 eAG = Estimated average glucose which is %A1C expressed as average glucose, using the formula of the P5X-Mklbuai Average Glucose study (ADAG), Diabetes Care, Vol.31,#8, 2007 REASON FOR VISIT fasting lipds Encounters Encounter Location Date Provider Diagnosis Ariel Akhtra MD [address] [place] [address] Drive [address] [place], [place] [phone] 08/17/2024 Ariel Akhtar Type 2 diabetes mellitus without complications E11.9 and Hyperlipidemia, unspecified hyperlipidemia type E78.5 Assessments Encounter Date Diagnosis (ICD Code) Assessment Notes Treatment Notes Treatment Clinical Notes Section Notes 08/17/2024 Type 2 diabetes mellitus without complications (ICD-10 - E11.9) 08/17/2024 Hyperlipidemia, unspecified hyperlipidemia type (ICD-10 - E78.5) Plan Of Treatment Next Appt Details Provider Name:Ariel Johnson ier, 03/01/2025 09:30:00 AM, [address] [place] [address], [address], [place], [place], [phone], Progress Notes * Kathrine ANDRADEOB:1950 ([age] yo F)Acc No.[id number]:08/17/2024 Progress Note Patient: Alla ALVAREZ Provider: Amilcar Akhtar MD :1950 A ge:74 Y S ex:Female Date:08/17/2024 Address: [facility] Subjective: * Chief Complaints: * 1 . Fasting lipds. * Medical History: Objective: * Vitals: Assessment: * Assessment: 1. T ype 2 diabetes mellitus without complications - E11.9 (Primary) 2 . H yperlipidemia, unspecified hyperlipidemia type - E78.5 Plan: * Treatment: 2. H yperlipidemia, unspecified hyperlipidemia type L AB: Liver Panel (Collection Date & Time - 08/17/2024 07:15 AM) L AB: Glucose Fasting (Collection Date & Time - 08/17/2024 07:15 AM) L AB: Lipid Panel with Reflex (Collection Date & Time - 08/17/2024 07:15 AM) L AB: Hemoglobin A1c (Collection Date & Time - 08/17/2024 07:15 AM) * Procedure Codes: 3 6415 VENIPUNCT, ROUTINE* * * The named appointment provid er may or may not be the originator of this progress note, and it is not deemed complete until electronically signed by the appointment provider. Sign off status: Pending * Provider: Amilcar Akhtar MD Date: 0 08/17/2024 Generated for Tawnya rosario/Nuzhat/Christieitting on: 0 02/22/2025 03:24 PM EDT
--- OUTSIDE RECORDS SUMMARY | 2024-08-26 06:45 | XMS_ITS ---
Author Organization Ariel Akhtar MD Address [address] [place], [place] [id number] Care Team Providers Care Paint Spray Inspector Name Role Phone Ariel Akhtar Primary Care Provider Allergies No Known Allergies REASON FOR VISIT 6 month Medications Medication SIG (Take, Route, Frequency, Duration) Notes Start Date End Date Status Eliquis 5 MG as directed Orally bid Active BD Pen Needle Short U/F 31G X 8 MM use one needle inject use 4 times a day with needle pen for 90 days Active Ibuprofen 800 MG 1 tablet with food o r milk as needed Orally Three times a day for 30 days 08/10/2019 Active Letrozole 2.5 MG TK 1 T PO D Oral for 90 Active FreeStyle Lite Test 0 use three times da safia In Vitro DX E11.9 three times a day for 90 days Active Folic Acid 400 MCG 1 tablet Orally Once a day for 30 day(s) Active Aspir-Low 81 MG 1 tablet Orally Once a day for 30 day(s) Active traMADol HCl 50 MG 1 tablet as needed Orally every 8 hours as needed for 10 days 08/10/2019 Not-Taking Lisinopril 40 MG 1 tablet Orally Once a day for 90 days Not-Taking Atorvastatin Calcium 80 MG TAKE 1 TABLET BY MOUTH ONCE DAILY Active LORazepam 0.5 MG one tab Orally Twice a day as needed for 10 days 05/20/2022 Not-Taking HumaLOG KwikPen 100 UNIT/ML 4-12 units Subcutaneous TID Not-Taking Lantus SoloStar 100 UNIT/ML 40 units Subcutaneous HS Not-Taking Cyclobenzaprine HCl 5 MG 1 tablet at bed time as needed Orally 3 times a day for 10 days 08/10/2019 Not-Taking traZODone HCl 50 MG TAKE 1 TABLET BY MONICA TH AT BEDTIME NEEDED ONCE DAILY for 90 Active Levothyroxine Sodium 150 MCG TAKE 1 TABLET BY MOUTH IN THE MORNING ONCE DAILY ON AN EMPTY STOMACH for 90 Active Lisinopril 20 MG TAKE 1 TABLET BY MONICA TH ONCE DAILY for 90 Active Vitamin D 50 MCG (1999) 1 capsule Ora lly Once a day 11/09/2019 Active Vital Signs Blood pressure systolic 142 mm Hg 08/27/19 25 Blood pressure diastolic 70 mm Hg 025 Height 67.5 in 08/26/2024 Weight 175 lbs 08/26/2024 BMI 27 kg/m2 08/26/2024 weight is up 12 pounds since 04-26-24 Encounters Encounter Location Date Provider Diagnosis Ariel Akhtar MD [address] [place] [address] [place] [phone] 08/26/2024 Ariel Akhtar Type 2 diabetes mellitus without complications E11.9 and Hyperlipidemia, unspecified hyperlipidemia type E78.5 Assessments Encounter Date Diagnosis (ICD Code) Assessment Notes Treatment Notes Treatment Clinical Notes Section Notes 08/26/2024 Type 2 diabetes mellitus without complications (ICD-10 - E11.9) needs to get back on diet, advised ob diet and exercise, will cntinue to monitor 08/26/2024 Hyperlipidemia, unspecified hyperlipidemia type (ICD-10 - E78.5) doing well on meds, will continue current regiment Plan Of Treatment Medication Medication Name Sig Start Date Stop Date Notes Atorvastatin Calcium 80 MG TAKE 1 TABLET BY MOUTH ONCE DAILY Treatment Notes Assessment Notes Type 2 diabetes mellitus without complic ations needs to get back on diet, advised ob diet and exercise, will cntinue to monitor Hyperlipidemia, unspecified hyperlipidemia type doing well on meds, will continue current regiment Next Appt Details Provider Name:Ariel Johnson ier, 03/01/2025 09:30:00 AM, [address] [place] [address], [address], [place], [place], [phone], Progress Notes * Misael ANDRADEBreOB:1950 ([age] yo F)Acc No.[id number]:08/26/2024 Progress Notes Patient: Alla ALVAREZ Provider: Amilcar Akhtar MD :1950 A ge:74 Y S ex:Female Date:08/26/2024 Address: [facility], [facility] Subjective: * Chief Complaints: * 6 month * HPI: S ymptom(s): patient is a 74 yo female here for 6 month follow up visit/ had a cold in may and still with running nose. still smoking. * ROS: G eneral/Constitutional: Denies C hills. [...] Hospitalization/Major Diagno stic Procedure: * Medications: T akingFolic Acid 400 MCG Tablet 1 tablet Orally Once a day Aspir-Low 81 MG Tablet Delayed Release 1 tablet Orally Once a day Eliquis 5 MG Tablet as directed Orally bid BD Pen Needle Short U/F 31G X 8 MM Miscellaneous use one needle inject use 4 times a day with needle pen Ibuprofen 800 MG Tablet 1 tablet with food or milk as needed Orally Three times a day Letrozole 2.5 MG Tablet TK 1 T PO D Oral FreeStyle Lite Test 0 Strip use three times daily In Vitro DX E11.9 three times a day Vitamin D 50 MCG (1999 UT) Capsule 1 capsule Orally Once a day Atorvastatin Calcium 80 MG Tablet TAKE 1 TABLET BY MOUTH ONCE DAILY Levothyroxine Sodium 150 MCG Tablet TAKE 1 TABLET BY MOUTH IN THE MORNING ONCE DAILY ON AN EMPTY STOMACH Lisinopril 20 MG Tablet TAKE 1 TABLET BY MOUTH ONCE DAILY traZODone HCl 50 MG Tablet TAKE 1 TABLET BY MOUTH AT BEDTIME NEEDED ONCE DAILY Taking Folic Acid 400 MCG Tablet 1 tablet Orally Once a day Taking Aspir-Low 81 MG Tablet Delayed Release 1 tablet Orally Once a day Taking Eliquis 5 MG Tablet as directed Orally bid Taking BD Pen Needle Short U/F 31G X 8 MM Miscellaneous use one needle inject use 4 times a day with needle pen Taking Ibuprofen 800 MG Tablet 1 tablet with food or milk as needed Orally Three times a day Taking Letrozole 2.5 MG Tablet TK 1 T PO D Oral Taking FreeStyle Lite Test 0 Strip use three times daily In Vitro DX E11.9 three times a day Taking Vitamin D 50 MCG (1999 UT) Capsule 1 capsule Orally Once a day Taking Atorvastatin Calcium 80 MG Tablet TAKE 1 TABLET BY MOUTH ONCE DAILY Taking Levothyroxine Sodium 150 MCG Tablet TAKE 1 TABLET BY MOUTH IN THE MORNING ONCE DAILY ON AN EMPTY STOMACH Taking Lisinopril 20 MG Tablet TAKE 1 TABLET BY MOUTH ONCE DAILY Taking traZODone HCl 50 MG Tablet TAKE 1 TABLET BY MOUTH AT BEDTIME NEEDED ONCE DAILY Not- Taking/PRNLORazepam 0.5 MG Tablet one tab Orally Twice a day as needed HumaLOG KwikPen 100 UNIT/ML Solution Pen-injector 4-12 units Subcutaneous TID Lantus SoloStar 100 UNIT/ML Solution Pen-injector 40 units Subcutaneous HS Cyclobenzaprine HCl 5 MG Tablet 1 tablet at bedtime as needed Orally 3 times a day traMADol HCl 50 MG Tablet 1 tablet as needed Orally every 8 hours as needed Lisinopril 40 MG Tablet 1 tablet Orally Once a day Medication List reviewed and reconciled with the patientNot-Taking/PRN LORazepam 0.5 MG Tablet one tab Orally Twice a day as needed Not-Taking/PRN HumaLOG KwikPen 100 UNIT/ML Solution Pen-injector 4-12 units Subcutaneous TID Not- Taking/PRN Lantus SoloStar 100 UNIT/ML Solution Pen-injector 40 units Subcutaneous HS Not-Taking/PRN Cyclobenzaprine HCl 5 MG Tablet 1 tablet at bedtime as needed Orally 3 times a day Not-Taking/PRN traMADol HCl 50 MG Tablet 1 tablet as needed Orally every 8 hours as needed Not-Taking/PRN Lisinopril 40 MG Tablet 1 tablet Orally Once a day Medication List reviewed and reconciled with the patient * Allergies: N .K.D.A.yes[Allergies Verified] Objective: * Vitals: H t: 67.5, Wt: 175, BMI:27, BP:142/70, Wt-k.38. weight is up 12 pounds since 04-26-24. * P ast Orders: L ab:Lipid Panel with Reflex (Order Date - 08/17/2024) (Collection Date & Time - 08/17/2024 07:15 AM) Value Reference Range Triglycerides 97 <150 - mg/dL Cholesterol 122 <200 - mg/dL LDL Cholesterol Calculated 58 <100 - mg/dL HDL Cholesterol 45 >40 - mg/dL L ab:Hemoglobin A1c (Order Date - 08/17/2024) (Collection Date & Time - 08/17/2024 07:15 AM) Value Reference Range Hemoglobin A1c % 5.8 <6.0 - % Estimated Average Glucose 120 - mg/dL L ab:Hold Gold (Order Date - 08/17/2024) (Collection Date & Time - 08/17/2024 07:15 AM) Value Reference Range Hold Gold See Note - L ab:Glucose Fasting (Order Date - 08/17/2024) (Collection Date & Time - 08/17/2024 07:15 AM) Value Reference Range Glucose Fasting 111 H 60-99 - mg/dL L ab:Liver Panel (Order Date - 08/17/2024) (Collection Date & Time - 08/17/2024 07:15 AM) Value Reference Range Bilirubin Total 0.4 0.0-1.0 - mg/dL Bilirubin Direct 0.1 0.0-0.5 - mg/dL Aspartate Amino Transferase 34 H 5-31 - U/L Alanine Aminotransferase 23 0-31 - U/L Total Protein 7.7 6.5-8.0 - g/dL Albumin Level 3.7 3.5-5.0 - g/dL Alkaline Phosphatase 98 39-117 - U/L * Examination: G eneral Examination: GENERAL APPEARANCE: a lert, well hydrated, in no distress.? HEAD: n ormocephalic. SKIN: g ood turgor. HEART: r egular rate and rhythm, no murmurs, rubs, gallops.? LUNGS: n o wheezes, rales, rhonchi, good air movement, clear to auscultation bilaterally. Assessment: * Assessment: 1. T ype 2 diabetes mellitus without complications - E11.9 (Primary) 2 . H yperlipidemia, unspecified hyperlipidemia type - E78.5 Plan: * Treatment: 2. H yperlipidemia, unspecified hyperlipidemia type Continue Atorvastatin Calcium Tablet, 80 MG, TAKE 1 TABLET BY MOUTH ONCE DAILY. Notes: doing well on meds, will continue current regiment * Procedure Codes: * * Sign off status: Completed true * Provider: Amilcar Akhtar MD Date: 0 08/26/2024 Generated for Tawnya rosario/Nuzhat/eTransmitting on: 0 02/22/2025 03:24 PM EDT History and Physical Notes * HPI (History of Present Illness) Category Sub-Category Detail Notes Category Not es Symptom(s) patient is a 74 yo female here for 6 month follow up visit/ had a cold in may and still with running nose. still smoking. Examination Category Sub-Category Detail Notes Category Not es General Examination GENERAL APPEARANCE: alert, w ell hydrated, in no distress HEAD: normocephalic HEART: regular rate and rhy thm, no murmurs, rubs, gallops LUNGS: no wheezes, rales, r honchi, good air movement, clear to auscultation bilaterally SKIN: good turgor
--- OUTSIDE RECORDS SUMMARY | 2024-10-18 05:00 | XMS_ITS ---
Author Organization [facility] Address [address] [place] [address] Care Team Providers Care Medical Representative Name Role Phone Ariel Akhtar MD Primary Care Provider Amairani Falcon Unavailable [phone] Encounters Encounter Location Date Provider Diagnosis [address] [address] 10/18/2024 Amairani Jean Plan Of Treatment Next Appt Details Provider Name:Amairani campos, 04/04/2025 09:00:00 AM, [address] [place] [address], [place], [address], Progress Notes * Kathrine ANDRADEOB:1950 ([age] yo F)Acc No.[id number]:10/18/2024 Progress Note Patient: Alla ALVAREZ Provider: Desmnod Jean DPM :1950 A ge:74 Y S ex:Female Date:10/18/2024 Address:[address] [facility] Pcp:Ariel Akhtar MD Subjective: * Chief Complaints: [...] 10/18/2024 Generated for Tawnya rosario/Nuzhat/Koby on: 0 02/22/2025 03:24 PM EDT
--- OUTSIDE RECORDS SUMMARY | 2024-10-25 09:45 | XMS_ITS ---
Author Organization [facility] Address [address] [place] [address] Care Team Providers Care Hosiery Mater Name Role Phone Ariel Akhtar MD Primary Care Provider Amairani Falcon Unavailable [phone] Encounters Encounter Location Date Provider Diagnosis [address] [address] 10/25/2024 Amairani Jean Plan Of Treatment Next Appt Details Provider Name:Amairani campos, 04/04/2025 09:00:00 AM, [address] [place] [address], [place], [address], Progress Notes * Kathrine ANDRADEOB:1950 ([age] yo F)Acc No.[id number]:10/25/2024 Progress Note Patient: Misael ALVAREZil Provider: Desmond Jean DPM :1950 A ge:74 Y S ex:Female Date:10/25/2024 Address:[address] [facility] Pcp:Ariel Akhtar MD Subjective: * Chief Complaints: * * Medical History: Objective: * Vitals: Assessment: Plan: * Treatment: * Images: * The named appointment provid er may or may not be the originator of this progress note, and it is not deemed complete until electronically signed by the appointment provider. Sign off status: Pending * Provider: Desmond Jean DPM Date: 0 10/25/2024 Generated for Tawnya rosario/Nuzhat/Koby on: 0 02/22/2025 03:23 PM EDT
--- OUTSIDE RECORDS SUMMARY | 2025-02-22 03:15 | XMS_ITS ---
Author Organization Ariel Akhtar MD Address [address] [place], [place] [id number] Care Team Providers Care Calciner Operator Name Role Phone Ariel Akhtar Primary Care Provider Results Component Value Reference Range Notes Complete Blood Count Auto Di ff Reviewed date:02/22/2025 12:20:49 PM Interpretation: Performing Lab:[facility], [address] [place] [phone] Notes/Report: White Blood Count 4.9 4.8-10.8 X10*3/uL Red Blood Count 3.76 4.20-5.50 X10*6/uL Hemoglobin 13.7 12.0-16.0 g/dl Hematocrit 39.9 37.0-47.0 % Mean Corpuscular Volume 106.1 80.0-98.0 fL Mean Corpuscular Hemoglobin 36.4 27.0-33.0 pg Mean Corpuscular HGB Conc 34.3 31.0-35.0 g/dl Red Cell Distribution Width 15.0 11.0-16.0 % Platelet Count 150 160-400 X10*3/uL Mean Platelet Volume 11.4 9.4-12.3 fL Neutrophils Percent Auto 64.3 45-73 % Imm Gran Pct Auto 0.2 0.0-0.4 % Lymphocytes Percent Auto 21.0 20-40 % Monocytes Percent Auto 8.0 2-11 % Eosinophils Percent Auto 5.5 0-4 % Basophils Percent Auto 1.0 0-2 % NRBC Pct Auto 0.0 0.0-0.2 /100WBC Neutrophils Absolute Auto 3.2 2.0-8.3 x10*3/u L Imm Gran Abs Auto 0.01 0.00-0.03 X10*3/uL Lymphocytes Absolute Auto 1.0 1.2-4.9 X10*3/u L Monocytes Absolute Auto 0.4 0.1-1.2 X10*3/uL Eosinophils Absolute Auto 0.3 0.0-0.4 X10*3/u L Basophils Absolute Auto 0.1 0.0-0.2 X10*3/uL NRBC Abs Auto 0.000 0.0-0.012 X10*3/uL Comprehensive [place]. Panel Fa st Reviewed date:02/22/2025 12:23:43 PM Interpretation: Performing Lab:[facility], [address] [place] [phone] Notes/Report: Sodium 142 135-145 mmol/L Potassium 4.1 3.3-5.1 mmol/L Chloride 111 96-108 mmol/L Carbon Dioxide 26 22-29 mmol/L Anion Gap 9 12-20 Blood Urea Nitrogen 17 9-16 mg/dL Creatinine 0.78 0.5-1.4 mg/dL Estimated Glomerular Filt Rate > 60 Chronic Kidney Disease: Estimated GFR < 60 mL/min/1.73m2 Severe Kidney Disease: Estimated GFR < 15 mL/min/1.73m2 Glucose Fasting 126 60-99 mg/dL A fasting glucose of 126 mg/dl or greater on more than one occasion is considered diagnostic of diabetes. Calcium 9.2 8.4-10.2 mg/dL Bilirubin Total 0.5 0.0-1.0 mg/dL Aspartate Amino Transferase 25 5-31 U/L Alanine Aminotransferase 13 0-31 U/L Total Protein 7.2 6.5-8.0 g/dL Albumin Level 3.9 3.5-5.0 g/dL Alkaline Phosphatase 96 39-117 U/L Lipid Panel Reviewed date:02/22/2025 12:22:37 PM Interpretation: Performing Lab:[facility], [address] [place] [phone] Notes/Report: Triglycerides 126 <150 mg/dL Desirable Triglyceride: less than 150 mg/dL Borderline High Triglyceride 150-199 mg/dL High Triglyceride: 200-499 mg/dL Very High Triglyceride: greater than or equal to 5OO mg/dL Cholesterol 130 <200 mg/dL Desirable Cholesterol: less than 200 mg/dL Borderline High Cholesterol: 200-239 mg/dL High Cholesterol: greater than 239 mg/dL LDL Cholesterol Calculated 66 <100 mg/dL Desirable LDL: less than 100 mg/dL Near Optimal/Above Optimal LDL: 110-129 mg/dL Borderline High LDL: 130-159 mg/dL High LDL: 160-189 mg/dL Very High LDL: greater than or equal to 190 mg/dL HDL Cholesterol 39 >40 mg/dL Desirable HDL: greater than 40 mg/dL Note: This HDL assay may give artificially low results in patients with liver disease. Vitamin D 25-OH Total Reviewed date:02/22/2025 12:22:26 PM Interpretation: Performing Lab:[facility], [address] [place] [phone] Notes/Report: Vitamin D 25-OH Total 34.6 >30 ng/mL Health Based Reference Values* < 20 ng/mL Deficient 20-30 ng/mL Insufficient > 30 ng/mL Sufficient *Jake LOMAX. N Engl J Med. 2007;357:266-280 There is no well-established upper level of normal vitamin D levels. Some laboratories use 50 ng/mL as an upper limit of normal. However, toxicity is patient-dependent and may occur at any level. Careful correlation with the patient's presentation is necessary and, if there is concern for vitamin D toxicity, treatment should be considered irrespective of the serum level. Care must be taken in interpreting Vitamin D results from different laboratories and methodologies. Published data demonstrated that results from patients undergoing hemodialysis may show a negative bias when tested with various automated 25-OH vitamin D assays when compared to LC-MS/MS. When testing samples from patients whose predominant form of Vitamin D is Vitamin D2, such as patients receiving Vitamin D2 supplementation, results that are subtherapeutic should be confirmed with another method such as LC-MS/MS. TSH reflex Free T4 Reviewed date:02/22/2025 12:21:12 PM Interpretation: Performing Lab:[address] [phone] Notes/Report: TSH reflex Free T4 1.49 0.32-4.0 uIU/mL Microalbumin, Random Reviewed date:02/22/2025 02:40:35 PM Interpretation: Performing Lab:[facility], [address] [place] [phone] Notes/Report: Creatinine Urine 150.02 Microalbumin Urine 30.0 Microalbum/Creatinine Ratio Ur 19.9 <30 ug/mg cr Albumin/Creatinine Ratio Reference Ranges: Normal: < 30 ug/mg creatinine Microalbuminuria: 30 - 300 ug/mg creatinine Clinical Albuminuria: > 300 ug/mg creatinine Hemoglobin A1c Reviewed date:02/22/2025 12:04:31 PM Interpretation: Performing Lab:[address] [phone] Notes/Report: Hemoglobin A1c % 6.0 <6.0 % Hemoglobin A1C Reference Range Adults: 4.8 - 6.0 % Non diabetic: < 6.0 % Goal: < 7.0 % Additional Action Suggested: > 8.0 % Note: Hemoglobin A1c results are invalid for patients with abnormal amounts of HbF. Blood transfusions may impact the HbA1c concentration in the patient sample. Estimated Average Glucose 126 eAG = Estimated average glucose which is %A1C expressed as average glucose, using the formula of the F9M-Yjqwzwe Average Glucose study (ADAG), Diabetes Care, Vol.31,#8, Jan. 2007 UA ClnCatch+Micro w/rflx Cul t Reviewed date:02/22/2025 12:24:20 PM Interpretation: Performing Lab:[facility], [address] [place] [phone] Notes/Report: Urine, Clean Catch Color Urine Yellow Appearance Urine Clear PH 5.5 5.0-9.0 Glucose Urine UA Negative Negative mg/dL Urine Blood Negative Negative Specific [place] - Urine 1.020 1.005-1.025 Urine Protein Negative Neg-Trace mg/dL Urine Ketones Negative Negative mg/dL Nitrite Urine Negative Negative Leukocyte Esterase Urine Moderate (2+) Negative RBC Urine 0-2 0-2 /HPF WBC Urine 6-10 0-5 /HPF Squamous Epithelial Cell Urine 3-5 0-2 /HPF Bacteria Urine 1+ None Seen Hyaline Casts Urine 0-2 0-2 /LPF REASON FOR VISIT yearly fasting labs Immunizations Vaccine Route Administration Date Status Comme nts Influenza High Dose IM Intramuscular 02/22/2025 Administer ed Encounters Encounter Location Date Provider Diagnosis Ariel Akhtar MD [address] [place] [phone] 02/22/2025 Ariel Akhtar Type 2 diabetes mellitus without complications E11.9 ; Hyperlipidemia, unspecified hyperlipidemia type E78.5 ; Acquired hypothyroidism E03.9 ; Vitamin D deficiency E55.9 ; Thrombocytopenia D69.6 and Encounter for administration of vaccine Z23 Assessments Encounter Date Diagnosis (ICD Code) Assessment Notes Treatment Notes Treatment Clinical Notes Section Notes 02/22/2025 Type 2 diabetes mellitus without complications (ICD-10 - E11.9) 02/22/2025 Hyperlipidemia, unspecified hyperlipidemia type (ICD-10 - E78.5) 02/22/2025 Acquired hypothyroidism (ICD-10 - E03.9) 02/22/2025 Vitamin D deficiency (ICD-10 - E55.9) 02/22/2025 Thrombocytopenia (ICD-10 - D69.6) 02/22/2025 Encounter for administration of vaccine (ICD-10 - Z23) Plan Of Treatment Next Appt Details Provider Name:Ariel Johnson ier, 03/01/2025 09:30:00 AM, [address], [address], [place], [place], [id number], Progress Notes * Kathrine ANDRADEOB:1950 ([age] yo F)Acc No.[id number]:02/22/2025 Progress Note Patient: Bruno WELDONMisaelil Provider: Amilcar Akhtar MD :1950 A ge:74 Y S ex:Female Date:02/22/2025 Address:[address], [address] [address], [facility] Subjective: * Chief Complaints: * 1 . Yearly fasting labs. * Medical History: Objective: * Vitals: Assessment: * Assessment: 1. T ype 2 diabetes mellitus without complications - E11.9 (Primary) 2 . H yperlipidemia, unspecified hyperlipidemia type - E78.5 3 . A cquired hypothyroidism - E03.9 4 . V itamin D deficiency - E55.9 5 . T hrombocytopenia - D69.6 6 . E ncounter for administration of vaccine - Z23 ? Plan: * Treatment: 2. H yperlipidemia, unspecified hyperlipidemia type L AB: Complete Blood Count Auto Diff (Collection Date & Time - 02/22/2025 11:19 AM) L AB: Comprehensive [place]. Panel Fast (Collection Date & Time - 02/22/2025 11:19 AM) L AB: Lipid Panel (Collection Date & Time - 02/22/2025 11:19 AM) L AB: Vitamin D 25-OH Total (Collection Date & Time - 02/22/2025 11:19 AM) L AB: TSH reflex Free T4 (Collection Date & Time - 02/22/2025 11:19 AM) L AB: Microalbumin, Random (Collection Date & Time - 02/22/2025 11:19 AM) L AB: Hemoglobin A1c (Collection Date & Time - 02/22/2025 11:19 AM) L AB: UA ClnCatch+Micro w/rflx Cult (Collection Date & Time - 02/22/2025 11:19 AM) 3. A cquired hypothyroidism L AB: Complete Blood Count Auto Diff (Collection Date & Time - 02/22/2025 11:19 AM) L AB: Comprehensive [place]. Panel Fast (Collection Date & Time - 02/22/2025 11:19 AM) L AB: Lipid Panel (Collection Date & Time - 02/22/2025 11:19 AM) L AB: Vitamin D 25-OH Total (Collection Date & Time - 02/22/2025 11:19 AM) L AB: TSH reflex Free T4 (Collection Date & Time - 02/22/2025 11:19 AM) L AB: Microalbumin, Random (Collection Date & Time - 02/22/2025 11:19 AM) L AB: Hemoglobin A1c (Collection Date & Time - 02/22/2025 11:19 AM) L AB: UA ClnCatch+Micro w/rflx Cult (Collection Date & Time - 02/22/2025 11:19 AM) 4. V itamin D deficiency L AB: Complete Blood Count Auto Diff (Collection Date & Time - 02/22/2025 11:19 AM) L AB: Comprehensive [place]. Panel Fast (Collection Date & Time - 02/22/2025 11:19 AM) L AB: Lipid Panel (Collection Date & Time - 02/22/2025 11:19 AM) L AB: Vitamin D 25-OH Total (Collection Date & Time - 02/22/2025 11:19 AM) L AB: TSH reflex Free T4 (Collection Date & Time - 02/22/2025 11:19 AM) L AB: Microalbumin, Random (Collection Date & Time - 02/22/2025 11:19 AM) L AB: Hemoglobin A1c (Collection Date & Time - 02/22/2025 11:19 AM) L AB: UA ClnCatch+Micro w/rflx Cult (Collection Date & Time - 02/22/2025 11:19 AM) 5. T hrombocytopenia L AB: Complete Blood Count Auto Diff (Collection Date & Time - 02/22/2025 11:19 AM) L AB: Comprehensive [place]. Panel Fast (Collection Date & Time - 02/22/2025 11:19 AM) L AB: Lipid Panel (Collection Date & Time - 02/22/2025 11:19 AM) L AB: Vitamin D 25-OH Total (Collection Date & Time - 02/22/2025 11:19 AM) L AB: TSH reflex Free T4 (Collection Date & Time - 02/22/2025 11:19 AM) L AB: Microalbumin, Random (Collection Date & Time - 02/22/2025 11:19 AM) L AB: Hemoglobin A1c (Collection Date & Time - 02/22/2025 11:19 AM) L AB: UA ClnCatch+Micro w/rflx Cult (Collection Date & Time - 02/22/2025 11:19 AM) * Immunizations: Influenza High Dose : 0.5 mL (Dose No:1) (Route: Intramuscular) given by Vicenta Hernandes , Office Staff on Right Deltoid * Procedure Codes: 3 6415 VENIPUNCT, ROUTINE*, 44941 FLU VACC PRSV FREE INC ANTIG, G0008 ADMN FLU VAC NO FEE SCHED SAME DAY * * The named appointment provid er may or may not be the originator of this progress note, and it is not deemed complete until electronically signed by the appointment provider. Sign off status: Pending * Provider: Amilcar Akhtar MD Date: 02/22/2025 Generated for Tawnya rosario/Nuzhat/Christieitting on: 02/22/2025 03:24 PM EDT
[2025-02-22 11:21] LABS: MANUAL DIFF FLAG NO
[2025-02-22 11:32] LABS: Appearance Urine Clear; Glucose Urine UA Negative (Negative); Hematocrit 39.9 % (37.0-47.0); Hemoglobin 13.7 g/dl (12.0-16.0); Imm Gran Abs Auto 0.01 X10*3/uL (0.00-0.03); Imm Gran Pct Auto 0.2 % (0.0-0.4); Lymphocytes Absolute Auto 1.0 X10*3/uL (1.2-4.9); Mean Corpuscular HGB Conc 34.3 g/dl (31.0-35.0); Mean Corpuscular Hemoglobin 36.4 pg (27.0-33.0); Mean Corpuscular Volume 106.1 fL (80.0-98.0); NRBC Abs Auto 0.000 X10*3/uL (0.0-0.012); NRBC Pct Auto 0.0 /100WBC (0.0-0.2); PH 5.5 (5.0-9.0); Platelet Count 150 X10*3/uL (160-400); Red Blood Count 3.76 X10*6/uL (4.20-5.50); Specific Gravity - Urine 1.020 (1.005-1.025); UMIC TRIGGER UACC YES; White Blood Count 4.9 X10*3/uL (4.8-10.8)
[2025-02-22 11:49] LABS: Hemoglobin A1C 151.9746 umol/L; Total Hemoglobin (HGBA1C) 3583.5375 umol/L
[2025-02-22 11:56] LABS: UACC Culture Trigger YES
[2025-02-22 12:07] LABS: Alanine Aminotransferase 13 U/L (0-31); Albumin Level 3.9 g/dL (3.5-5.0); Alkaline Phosphatase 96 U/L (39-117); Anion Gap 9 (12-20); Aspartate Amino Transferase 25 U/L (5-31); Blood Urea Nitrogen 17 mg/dL (9-16); Calcium 9.2 mg/dL (8.4-10.2); Carbon Dioxide 26 mmol/L (22-29); Chloride 111 mmol/L (96-108); Cholesterol 130 mg/dL (<200); Estimated Glomerular Filt Rate > 60; HDL Cholesterol 39 mg/dL (>40); Potassium 4.1 mmol/L (3.3-5.1); Sodium 142 mmol/L (135-145); Total Protein 7.2 g/dL (6.5-8.0); Triglycerides 126 mg/dL (<150)
[2025-02-22 12:34] LABS: Microalbum/Creatinine Ratio Ur 19.9 ug/mg cr (<30)
--- OUTSIDE RECORDS SUMMARY | 2025-02-22 15:24 | XMS_ITS | Patient Health Record ---
Author Organization [facility] Address [address] [place] [address] Care Team Providers Care Bag Bailer Name Role Phone Giovana ALBARRAN, Ariel Primary Care Provider Amairani Falcon Unavailable [phone] Allergies No Known Allergies Results Component Value Reference Range Notes HEMOGLOBIN A1C (GLYCOHEMOGLO BIN) Reviewed date:07/19/2024 08:45:51 AM Interpretation: Performing Lab: Notes/Report: HEMOGLOBIN A1C % (HH) 5.7 Reason For Referral No Information Medications Medication SIG (Take, Route, Frequency, Duration) Notes Start Date End Date Status Aspir-81 Active Lantus Not-Taking Eliquis 5 MG as directed Orally Active Extra Depth Orthopedic Shoes (1 Pair) with Customized Heat Molded Multidensity Innersoles (3 Pair) as directed Dx: NIDDM/Polyneuropathy (E11.42), Hammertoe Foot Deformity (M20.41,M20.42), Preulcerative Skin Lesion(s) (L85.1 08/09/2021 Not-Taking traZODone HCl 50 MG 1 tablet at bedtime as needed Orally Once a day; Duration: 30 day(s) Active Clotrimazole-Betamethason e 1-0.05 % 1 application to affected area Externally Twice a day to affected areas on feet; Duration: 30 days 11/12/2021 Not-Taki ng Levothyroxine Sodium 175 MCG 1 tablet in the morning on an empty stomach Orally Once a day; Duration: 30 day(s) Active Mupirocin 2 % 1 application Externally Two times a day; Duration: 14 days 10/23/2020 Not-Yenny g Ciclopirox Olamine 0.77 % 1 application Externally Twice a day; Duration: 30 days Active Folic Acid Active HumaLOG Not-Taking Hydrocortisone 2.5 % as directed Externa lly to feet Twice a day; Duration: 30 days Active Vitamin D 50 MCG (1999 UT) 1 tablet Orally Once a day; Duration: 30 day(s) Active Atorvastatin Calcium 80 MG 1 tablet Orally Once a day; Duration: 30 day(s) Active Letrozole 2.5 MG 1 tablet Orally Once a day; Duration: 30 day(s) Active Lisinopril 40 MG 1 tablet Orally Once a day; Duration: 30 day(s) Active Immunizations Vaccine Route Administration Date Status Comme nts Influenza Unknown 04/07/2020 Administered Influenza Unknown 02/26/2023 Administered Influenza Unknown 03/25/2024 Administered COVID-19 Moderna Vaccine Unknown 05/21/2021 Administered 1st vaccine 08/25/20 2nd dose 09/24/20 Social History Tobacco Use: Social History Observation [...] Problem Status W/U Status Risk Notes Problem Acquired hammer toe of left foot (9644358799193246) Hammer toe of left foot (M20.42) Active confirmed Problem Polyneuropathy due to type 2 diabetes mellitus (852820388) Type 2 diabetes mellitus with polyneuropathy (E11.42) Active confirmed Problem Bilateral atherosclerosis of arteries of lower limbs (disorder) (54606798210194290 ) Atherosclerosis of artery of both lower extremities (I70.203) Active confirmed Vital Signs Blood pressure diastolic 75 mm Hg 12/27/2024 Height 5ft 7in in 12/27/2024 Blood pressure systolic 113 mm Hg 12/27/2024 Weight 156 lbs 12/27/2024 BMI 24.43 kg/m2 12/27/2024 Encounters Encounter Location Date Provider Diagnosis [address] [place] [address] 04/15/2024 Amairani Perica Tinea pedis of both feet B35.3 ; Atherosclerosis of artery of both lower extremities I70.203 ; Type 2 diabetes mellitus with polyneuropathy E11.42 and Tinea unguium B35.[address] [address] 07/19/2024 Amairani Perica Tinea pedis of both feet B35.3 ; Atherosclerosis of artery of both lower extremities I70.203 ; Type 2 diabetes mellitus with polyneuropathy E11.42 and Tinea unguium B35.[address] [address] 12/27/2024 Amairani Perica Atherosclerosis of artery of both lower extremities I70.203 ; Plantar fasciitis of right foot M72.2 ; Type 2 diabetes mellitus with polyneuropathy E11.42 and Tinea unguium B35.1 Assessments Encounter Date Diagnosis (ICD Code) Assessment Notes Treatment Notes Treatment Clinical Notes Section Notes 04/15/2024 Tinea pedis of both feet (ICD-10 - B35.3) 12/27/2024 Plantar fasciitis of right foot (ICD-10 - M72.2) Patient Educated with: HEEL CORD STRETCHES.pdf (HEEL CORD STRETCHES.pdf ) Patient Educated with: RICE THERAPY.pdf (RICE THERAPY.pdf) 12/27/2024 Atherosclerosis of artery of both lower extremities (ICD-10 - I70.203) 07/19/2024 Tinea pedis of both feet (ICD-10 - B35.3) 07/19/2024 Atherosclerosis of artery of both lower extremities (ICD-10 - I70.203) 04/15/2024 Atherosclerosis of artery of both lower extremities (ICD-10 - I70.203) 12/27/2024 Type 2 diabetes mellitus with polyneuropathy (ICD-10 - E11.42) 04/15/2024 Type 2 diabetes mellitus with polyneuropathy (ICD-10 - E11.42) 12/27/2024 Tinea unguium (ICD-10 - B35.1) 07/19/2024 Type 2 diabetes mellitus with polyneuropathy (ICD-10 - E11.42) 07/19/2024 Tinea unguium (ICD-10 - B35.1) 04/15/2024 Tinea unguium (ICD-10 - B35.1) Plan Of Treatment Next Appt Details Provider Name:Amairani Reese campos, 04/04/2025 09:00:00 AM, [address] [place] [address], [place], [address], Insurance Providers Payer Name Payer Address Payer Phone Subscriber Number Group Number Insured Name Patient Relationship to Insured Coverage Start Date Coverage End Date Medicare [employer] [address] [place] [address] [id number] Alla Velasquez Self - patient is the insured A[employer] Secondary to Medicare [address] [place] [address] [id number] Alla Velasquez Self - patient is the insured Medical (General) History Medical History History ICD Code Arthritis Back,Hip,and Knee pain Cancer Diabetic High blood pressure thyroid Measles Mumps Chicken pox Joint implants/screws Surgical History Surgery Date(Month/Year) cholecystectomy 1970 hernia 1980 hysterectomy 2017 knee replacement 2010 Breast Surgery 2018 Hand Surgery 03/12/21 total knee replacement, left 10/29/23 hand surgery 07/29/2024 Hospitalization History Reason Date(Month/Year) [facility]- cut on left leg, infection, celluli tis 06/2023 [facility]- fell, cut head 05/12/21
--- OUTSIDE RECORDS SUMMARY | 2025-02-22 15:24 | XMS_ITS | Patient Health Record ---
Author Organization [facility] Address [address] [place] [address] Care Team Providers Care Return Clerk Name Role Phone Giovana ALBARRAN, Ariel Primary [...] Problem Status W/U Status Risk Notes Problem [id number] Colon cancer screening (Z12.11) Active confirmed Problem [id number] [facility] (cur[facility]) use of anticoagulants (Z79.01) Active confirmed Problem [id number] Encounter for ot her preprocedural examination (Z01.818) Active confirmed Problem [id number] [facility] ([facility]) use of insulin (Z79.4) Active confirmed Plan Of Treatment Future Test Test Name Order Date COLONOSCOPY 12/03/2017 COLONOSCOPY 10/11/2021 Insurance Providers Payer Name Payer Address Payer Phone Subscriber Number Group Number Insured Name Patient Relationship to Insured Coverage Start Date Coverage End Date MEDICARE OF [place] [address] [place] [id number] LYNSEY ANDRADE Self - patient is the insured [facility] [employer] [address] [place] [address] [phone] [id number] LYNSEY ANDRADE Self - patient is the insured Medical (General) History Medical History History ICD Code diabetes mellitus hypothyroidism elevated cholesterol uterine cancer hypertension breast cancer 2019 abdominal aortic aneurysm Surgical History Surgery Date(Month/Year) right knee replacement cholecystectomy tubal ligation hysterectomy hernia repair lumpectomy right left leg stent
--- OUTSIDE RECORDS SUMMARY | 2025-02-22 15:24 | XMS_ITS | Clinical Summary ---
Author Organization [facility] Address [address] [place] [address] Phone Care Team Providers Care Material Lister Name Role Phone Unavailable Primary Care Provider Unavailabl e Encounters Date Type Department Care Team Description 01/27/2025 7:24 AM EDT - 01/27/2025 11:59 PM EDT Hospital Encounter [facility] CT Scan [address] [place] [address] PAD (peripheral artery disease) ([facility] V24) Discharge Disposition: Home or Self Care from Last 3 Months Surgical History Surgery Date Site/Laterality Comments CHOLECYSTECTOMY [...] Date Smoking Tobacco: Every Day Cigarettes 0.5 44.7 Started: 06/09/1980 Alcohol Use Standard Drinks/Week Comments Not Asked 0 (1 standard drink = 0.6 oz pur e alcohol) Comments Unknown Sex and Gender Information Value Date Recorded Sex Assigned at Female 01/17/2025 6:36 PM EDT Legal Sex Female 3:44 PM EST Gender Identity Not on file Sexual Orientation Not on file Obstetrics History Plan of Treatment Health Maintenance Due Date Last Done Comments Breast Cancer Screening 1950 Diabetes: Annual GFR (Glomerular Filtration Rate) 1950 Diabetes: Annual Foot Exam 1960 Diabetes: Annual Retina Eye Exam 1960 Zoster Vaccines (1 of 2) 2000 RSV Immunization Adult Patients (1 - Risk 60-74 years 1-dose series) 2010 Cholesterol Screening (Lipid Panel) 05/08/2022 Colorectal Cancer Screening: Stool Based Tests (FOBT/FIT) 05/08/2022 Falls Risk Assessment 05/08/2022 Hepatitis C Screening 05/08/2022 Medicare Annual Wellness Visit 05/08/2022 Osteoporosis Screening (Bone Density Screening) 05/08/2022 Social Influencers of Health Screening 05/08/2022 Diabetes: Annual Urine Albumin-Creatinine Ratio (uACR) 05/22/2022 Diabetes: Blood Sugar Control Test (HGBA1C) 05/22/2022 Depression Screening 06/09/2024 COVID-19 Vaccine (4 - season) 2025 05/21/2021, 09/24/2020, 08/25/2020 Influenza Vaccine (#1) 2025 , 02/24/2023, 02/18/2022, Additional history exists DTaP,Tdap,and Td Vaccines (2 - Td or Tdap) 06/27/2033 06/27/2023 Pneumococcal Vaccine: 50+ Years Completed 10/06/2018, 04/03/2017 HIB Vaccines Aged Out No longer eligi [...] to complete this topic RSV Immunization Patients Under 20 months Aged Out No longer eligible based on patient's age to complete this topic Varicella Vaccines Aged Out No longer eligible based on patient's age to complete this topic Procedures Procedure Name Priority Date/Time Associated Diagnosis Comments CT ANGIO ABDOMINAL AORTA W RUNOFF Routine 01/27/2025 8:00 AM EDT PAD (peripheral artery disease) ([facility] V24) from Last 3 Months Results * CT Angio Abdominal Aorta w Runoff (01/27/2025 8:00 AM EDT) Anatomical Region Laterality Modality Body Computed Tomogra phy 02/01/2025 8:10 AM EDT Impressions 02/01/2025 8:57 AM EDT There is calcified and noncalcified plaque within a bilobed infrarenal abdominal aortic aneurysm which has increased in size. No surrounding hemorrhage. The iliacs are patent. There is extensive femoral popliteal disease with previous stent in the left SFA which is patent. There is bilateral runoff disease. No acute abnormality in the abdomen and pelvis -------- FINAL REPORT -------- Dictated By: Laz Archer Dictated Date: 02/01/2025 08:10 ET Assigned Physician: Laz Archer Reviewed and Electronically Signed By: Laz Archer Signed Date: 02/01/2025 08:57 ET Workstation ID: [id number] Transcribed By: Self Edit Transcribed Date: 02/01/2025 08:10 ET Narrative 02/01/2025 8:57 AM EDT EXAM: CT ANGIO ABDOMINAL AORTA W RUNOFF INDICATION: PAD, LEG PAIN. COMPARISON: Portions of previous 12/25/22 TECHNIQUE: CT angiography of the abdomen, pelvis and lower extremities was performed using contiguous helical images from the diaphragm to the feet, during intravenous injection of 120 ml of ISOVUE-370. 0.625 mm axial images were reconstructed. Sagittal and coronal reformatted images were rendered. DLP: 2030 mGy-cm MIP images were created using contemporaneous radiologist supervision with permanent images saved to PACS. FINDINGS: ABDOMINAL AORTA: There is calcified and noncalcified plaque within the abdominal aorta. There is a bilobed infrarenal abdominal aortic aneurysm with some extensive peripheral noncalcified plaque which extends from just below level of the renal origins to the aortic bifurcation. The upper component; 01/27/25-3.9 x 3.9 cm (2/334 7-3.7 x 4.0 cm (2/278) 11/21/20-3.3 x 3.6 cm (2/321) The amount of luminal thrombus has diminished when compared to 11/21/20 in the upper component. The lower component; 01/27/25-5.0 x 4.8 cm (2/441) 12/25/22-4.7 x 4.6 cm (2/273) 11/21/20-4.1 x 3.8 cm (2/405) There is no surrounding hematoma or fat stranding. CELIAC: Widely patent. SMA: Calcified plaque but widely patent. RAJESH: Not well evaluated. There is calcified plaque at the expected origin. There is some reconstitution distally. The RAJESH could be occluded. RIGHT RENAL ARTERY: There is a widely patent single right renal artery. There are some calcified plaques but no significant narrowing. LEFT RENAL ARTERY: There is calcified plaque at the origin of the patent single left renal artery. No significant narrowing or poststenotic dilation. RIGHT LOWER EXTREMITY: COMMON ILIAC ARTERY: The right common iliac artery is patent with calcified and noncalcified plaque. The proximal right common iliac artery is dilated (1.8 cm). There is dilation of the distal right common iliac artery (2.0 cm). EXTERNAL ILIAC ARTERY: Patent with calcified plaque. INTERNAL ILIAC ARTERY: Patent with calcified plaque. COMMON FEMORAL ARTERY: Patent with calcified plaques. No significant narrowing. PROFUNDA FEMORAL ARTERY: The right profunda femoral is patent into the proximal thigh with calcified plaque. SUPERFICIAL FEMORAL ARTERY: The proximal right SFA is moderately narrowed with multifocal calcified plaque. There are multiple calcified plaques with irregularity of the lumen throughout the right SFA. There is at least moderate narrowing at the abductor canal. High-grade narrowing suspected in the distal abductor canal. Difficult to confirm patency although I suspect the vessel is severely diseased and narrowed but patent. POPLITEAL ARTERY: Severe calcified plaques in the right popliteal artery with marked narrowing. Popliteal is partially obscured by metallic artifact. ANTERIOR TIBIAL ARTERY: The right anterior tibial artery is diseased with calcified plaques. The vessel is difficult to visualize at multiple levels. Faint reconstitution throughout the calf. There is nonvisualization in segments of the mid and distal calf. There is no definite enhancement at the ankle or in the region of the dorsalis pedis. Whether this is related to occlusion or timing is uncertain. TIBIOPERONEAL TRUNK: Extensive calcified plaques with luminal narrowing. POSTERIOR TIBIAL: Multifocal calcified and noncalcified plaques with luminal irregularity. The posterior tibial is well enhanced into the foot. PERONEAL ARTERY: Multiple calcified plaques. Luminal irregularity. The peroneal opacifies to the distal calf. LEFT LOWER EXTREMITY: COMMON ILIAC ARTERY: There is narrowing at the origin of left common iliac artery. There are extensive calcified and noncalcified plaques. The proximal left common iliac artery measures 1.8 cm. 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 EXTERNAL ILIAC ARTERY: Calcified and noncalcified plaques without significant luminal narrowing of the left external iliac artery. INTERNAL ILIAC ARTERY: The proximal left internal iliac artery measures approximately 1.4 cm. There are extensive calcified plaques. COMMON FEMORAL ARTERY: The left common femoral artery is patent with calcified plaque. PROFUNDA FEMORAL ARTERY: The left profunda femoral demonstrates multifocal calcified plaques. Mild luminal narrowing. The vessel opacifies into the proximal thigh. SUPERFICIAL FEMORAL ARTERY: There is calcified plaque with at least mild luminal narrowing at the origin of the left SFA. Calcified plaques cause mild to moderate narrowing proximally. There are stents within the mid and distal left SFA with surrounding calcified plaque. The stents appear patent. POPLITEAL ARTERY: Extensive plaques within the left popliteal artery. At least moderate narrowing. Portions of the popliteal are obscured by metallic artifact. ANTERIOR TIBIAL ARTERY: There is at least some atherosclerotic irregularity. The anterior tibial artery has some calcified plaque proximally but is well opacified into the foot and the dorsalis pedis is well enhanced. TIBIOPERONEAL TRUNK: There are calcified plaques with mild narrowing. POSTERIOR TIBIAL: The posterior tibial is not well visualized. Whether this is related to occlusion or timing is uncertain. I suspect reconstitution just above the level of the malleolus. PERONEAL ARTERY: The peroneal is a relatively robust vessel and opacifies into the distal calf. NONVASCULAR LIVER: The right lobe of the liver measures 19.6 cm. Early phase enhancement does not demonstrate any suspicious abnormality. The liver contour appears smooth. BILIARY TRACT: The gallbladder is not demonstrated. The extrahepatic biliary tree is mildly prominent without significant interval increase. SPLEEN: The spleen measures 9.3 cm. No focal abnormality. PANCREAS: No suspicious abnormality. ADRENAL GLANDS: No suspicious abnormality. There is an unchanged soft tissue nodule in the fat between the right hemidiaphragm, adrenal glands and medial aspect of the right lobe of the liver is unchanged since at least 11/21/20. KIDNEYS: The kidneys are normal in size, shape, and attenuation. No hydronephrosis, hydroureter, or calculi. GASTROINTESTINAL TRACT: Luminal narrowing of wall thickening and diverticula in the sigmoid. No surrounding fat stranding. Fatty prominence in the region of the ileocecal valve. Mild mucosal hyperenhancement of the most distal small bowel. There is fluid within the small bowel loops. No suspicious abnormality the stomach. URINARY BLADDER: The bladder is nearly empty. No focal abnormality. PELVIC VISCERA: The uterus is surgically absent. No suspicious adnexal mass or collection. ABDOMINAL WALL: Evidence of prior mesh repair. LYMPHOVASCULAR STRUCTURES AND FLUID: There are no measurably enlarged lymph nodes. There is a normal variant retroaortic left renal vein. The portal vein appears patent. MUSCULOSKELETAL: No acute or suspicious osseous abnormality. There are degenerative changes in the spine and hips. VISUALIZED LOWER CHEST: There are calcifications in the visualized coronary arteries. The right breast is not well evaluated. No suspicious abnormality in the lung bases. Procedure Note Laz Archer MD - 02/01/2025 EXAM: CT ANGIO ABDOMINAL AORTA W RUNOFF INDICATION: PAD, LEG PAIN. COMPARISON: Portions of previous 12/25/22 TECHNIQUE: CT angiography of the abdomen, pelvis and lower extremities wasperformed using contiguous helical images from the diaphragm to the feet,during intravenous injection of 120 ml of ISOVUE-370. 0.625 mm axialimages were reconstructed. Sagittal and coronal reformatted images wererendered. DLP: 2030 mGy-cm MIP images were created using contemporaneous radiologist supervision withpermanent images saved to PACS. FINDINGS: ABDOMINAL AORTA: There is calcified and noncalcified plaque within theabdominal aorta. There is a bilobed infrarenal abdominal aortic aneurysmwith some extensive peripheral noncalcified plaque which extends from justbelow level of the renal origins to the aortic bifurcation. The upper component; 01/27/25-3.9 x 3.9 cm (2/334 12/25/22-3.7 x 4.0 cm (2/278) 11/21/20-3.3 x 3.6 cm (2/321) The amount of luminal thrombus has diminished when compared to 11/21/20 inthe upper component. The lower component; 01/27/25-5.0 x 4.8 cm (2/441) 12/25/22-4.7 x 4.6 cm (2/273) 11/21/20-4.1 x 3.8 cm (2/405) There is no surrounding hematoma or fat stranding. CELIAC: Widely patent. SMA: Calcified plaque but widely patent. RAJESH: Not well evaluated. There is calcified plaque at the expectedorigin. There is some reconstitution distally. The RAJESH could beoccluded. RIGHT RENAL ARTERY: There is a widely patent single right renal artery.There are some calcified plaques but no significant narrowing. LEFT RENAL ARTERY: There is calcified plaque at the origin of the patentsingle left renal artery. No significant narrowing or poststenoticdilation. RIGHT LOWER EXTREMITY: COMMON ILIAC ARTERY: The right common iliac artery is patent withcalcified and noncalcified plaque. The proximal right common iliac arteryis dilated (1.8 cm). There is dilation of the distal right common iliacartery (2.0 cm). EXTERNAL ILIAC ARTERY: Patent with calcified plaque. INTERNAL ILIAC ARTERY: Patent with calcified plaque. COMMON FEMORAL ARTERY: Patent with calcified plaques. No significantnarrowing. PROFUNDA FEMORAL ARTERY: The right profunda femoral is patent into theproximal thigh with calcified plaque. SUPERFICIAL FEMORAL ARTERY: The proximal right SFA is moderately narrowedwith multifocal calcified plaque. There are multiple calcified plaqueswith irregularity of the lumen throughout the right SFA. There is at leastmoderate narrowing at the abductor canal. High-grade narrowing suspectedin the distal abductor canal. Difficult to confirm patency although Isuspect the vessel is severely diseased and narrowed but patent. POPLITEAL ARTERY: Severe calcified plaques in the right popliteal arterywith marked narrowing. Popliteal is partially obscured by metallicartifact. ANTERIOR TIBIAL ARTERY: The right anterior tibial artery is diseased withcalcified plaques. The vessel is difficult to visualize at multiplelevels. Faint reconstitution throughout the calf. There isnonvisualization in segments of the mid and distal calf. There is nodefinite enhancement at the ankle or in the region of the dorsalis pedis.Whether this is related to occlusion or timing is uncertain. TIBIOPERONEAL TRUNK: Extensive calcified plaques with luminalnarrowing. POSTERIOR TIBIAL: Multifocal calcified and noncalcified plaques withluminal irregularity. The posterior tibial is well enhanced into thefoot. PERONEAL ARTERY: Multiple calcified plaques. Luminal irregularity. Theperoneal opacifies to the distal calf. LEFT LOWER EXTREMITY: COMMON ILIAC ARTERY: There is narrowing at the origin of left commoniliac artery. There are extensive calcified and noncalcified plaques. Theproximal left common iliac artery measures 1.8 cm. 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 EXTERNAL ILIAC ARTERY: Calcified and noncalcified plaques withoutsignificant luminal narrowing of the left external iliac artery. INTERNAL ILIAC ARTERY: The proximal left internal iliac artery measuresapproximately 1.4 cm. There are extensive calcified plaques. COMMON FEMORAL ARTERY: The left common femoral artery is patent withcalcified plaque. PROFUNDA FEMORAL ARTERY: The left profunda femoral demonstrates multifocalcalcified plaques. Mild luminal narrowing. The vessel opacifies into theproximal thigh. SUPERFICIAL FEMORAL ARTERY: There is calcified plaque with at least mildluminal narrowing at the origin of the left SFA. Calcified plaques causemild to moderate narrowing proximally. There are stents within the mid anddistal left SFA with surrounding calcified plaque. The stents appearpatent. POPLITEAL ARTERY: Extensive plaques within the left popliteal artery. Atleast moderate narrowing. Portions of the popliteal are obscured bymetallic artifact. ANTERIOR TIBIAL ARTERY: There is at least some atheroscleroticirregularity. The anterior tibial artery has some calcified plaqueproximally but is well opacified into the foot and the dorsalis pedis iswell enhanced. TIBIOPERONEAL TRUNK: There are calcified plaques with mild narrowing. POSTERIOR TIBIAL: The posterior tibial is not well visualized. Whetherthis is related to occlusion or timing is uncertain. I suspectreconstitution just above the level of the malleolus. PERONEAL ARTERY: The peroneal is a relatively robust vessel and opacifiesinto the distal calf. NONVASCULAR LIVER: The right lobe of the liver measures 19.6 cm. Early phaseenhancement does not demonstrate any suspicious abnormality. The livercontour appears smooth. BILIARY TRACT: The gallbladder is not demonstrated. The extrahepaticbiliary tree is mildly prominent without significant interval increase. SPLEEN: The spleen measures 9.3 cm. No focal abnormality. PANCREAS: No suspicious abnormality. ADRENAL GLANDS: No suspicious abnormality. There is an unchanged softtissue nodule in the fat between the right hemidiaphragm, adrenal glandsand medial aspect of the right lobe of the liver is unchanged since atleast 11/21/20. KIDNEYS: The kidneys are normal in size, shape, and attenuation. Nohydronephrosis, hydroureter, or calculi. GASTROINTESTINAL TRACT: Luminal narrowing of wall thickening anddiverticula in the sigmoid. No surrounding fat stranding. Fatty prominencein the region of the ileocecal valve. Mild mucosal hyperenhancement of themost distal small bowel. There is fluid within the small bowel loops. Nosuspicious abnormality the stomach. URINARY BLADDER: The bladder is nearly empty. No focal abnormality. PELVIC VISCERA: The uterus is surgically absent. No suspicious adnexalmass or collection. ABDOMINAL WALL: Evidence of prior mesh repair. LYMPHOVASCULAR STRUCTURES AND FLUID: There are no measurably enlargedlymph nodes. There is a normal variant retroaortic left renal vein. Theportal vein appears patent. MUSCULOSKELETAL: No acute or suspicious osseous abnormality. There aredegenerative changes in the spine and hips. VISUALIZED LOWER CHEST: There are calcifications in the visualizedcoronary arteries. The right breast is not well evaluated. No suspiciousabnormality in the lung bases. IMPRESSION: There is calcified and noncalcified plaque within a bilobed infrarenalabdominal aortic aneurysm which has increased in size. No surrounding hemorrhage. The iliacs are patent. There is extensive femoral popliteal disease with previous stent in theleft SFA which is patent. There is bilateral runoff disease. No acute abnormality in the abdomen and pelvis -------- FINAL REPORT -------- Dictated By: Laz Archer Dictated Date: 02/01/2025 08:10 ET Assigned Physician: Laz Archer Reviewed and Electronically Signed By: Laz Archer Signed Date: 02/01/2025 08:57 ET Workstation ID: [id number] Transcribed By: Self Edit Transcribed Date: 02/01/2025 08:10 ET Vega Duque MD IMG CT PROCEDURES Final Result from Last 3 Months Insurance MEDICARE [facility]
--- OUTSIDE RECORDS SUMMARY | 2025-02-22 15:25 | XMS_ITS | Patient Health Record ---
Author Organization Ariel Akhtar MD Address [address] [place], [place] [id number] Care Team Providers Care Institution Librarian Name Role Phone Ariel Akhtar Primary Care Provider Allergies No Known Allergies Results Component Value Reference Range Notes Liver Panel Reviewed date:08/18/2024 07:05:22 PM Interpretation: Performing Lab:[facility], [address] [place] [phone] Notes/Report: Bilirubin Total 0.4 0.0-1.0 mg/dL Bilirubin Direct 0.1 0.0-0.5 mg/dL Aspartate Amino Transferase 34 5-31 U/L Alanine Aminotransferase 23 0-31 U/L Total Protein 7.7 6.5-8.0 g/dL Albumin Level 3.7 3.5-5.0 g/dL Alkaline Phosphatase 98 39-117 U/L Glucose Fasting Reviewed date:08/18/2024 07:04:15 PM Interpretation: Performing Lab:[facility], [address] [place] [phone] Notes/Report: Glucose Fasting 111 60-99 mg/dL A fasting glucose from 100-125 mg/dl is considered impaired (pre-diabetes). Lipid Panel with Reflex Reviewed date:08/17/2024 02:05:22 PM Interpretation: Performing Lab:[facility], [address] [place] [phone] Notes/Report: Triglycerides 97 <150 mg/dL Desirable Triglyceride: [...] A1c Reviewed date:08/17/2024 12:11:33 PM Interpretation: Performing Lab:[facility], [address] [place] [phone] Notes/Report: Hemoglobin A1c % 5.8 <6.0 % [...] average glucose, using the formula of the J5J-Wfokajm Average Glucose study (ADAG), Diabetes Care, Vol.31,#8, 2007 Complete Blood Count Auto Di ff Reviewed date:02/22/2025 12:20:49 PM Interpretation: Performing Lab:[facility], [address] [place] [phone] Notes/Report: White Blood Count 4.9 4.8-10.8 X10*3/uL [...] NRBC Abs Auto 0.000 0.0-0.012 X10*3/uL Comprehensive Reynolds. Panel Fa st Reviewed date:02/22/2025 12:23:43 PM Interpretation: Performing Lab:[facility], [address] [place] [phone] Notes/Report: Sodium 142 135-145 mmol/L Potassium 4.1 [...] Panel Reviewed date:02/22/2025 12:22:37 PM Interpretation: Performing Lab:[facility], [address] [place] [phone] Notes/Report: Triglycerides 126 <150 mg/dL Desirable Triglyceride: [...] Total Reviewed date:02/22/2025 12:22:26 PM Interpretation: Performing Lab:[address] [phone] Notes/Report: Vitamin D 25-OH Total 34.6 >30 [...] T4 Reviewed date:02/22/2025 12:21:12 PM Interpretation: Performing Lab:[facility], [address] [place] [phone] Notes/Report: TSH reflex Free T4 1.49 0.32-4.0 uIU/mL Microalbumin, Random Reviewed date:02/22/2025 02:40:35 PM Interpretation: Performing Lab:[facility], [address] [place] [phone] Notes/Report: Creatinine Urine 150.02 Microalbumin Urine 30.0 Microalbum/Creatinine Ratio Ur 19.9 <30 ug/mg cr Albumin/Creatinine Ratio Reference Ranges: Normal: < 30 ug/mg creatinine Microalbuminuria: 30 - 300 ug/mg creatinine Clinical Albuminuria: > 300 ug/mg creatinine Hemoglobin A1c Reviewed date:02/22/2025 12:04:31 PM Interpretation: Performing Lab:[facility], [address] [place] [phone] Notes/Report: Hemoglobin A1c % 6.0 <6.0 % [...] average glucose, using the formula of the Z7W-Xfwiroh Average Glucose study (ADAG), Diabetes Care, Vol.31,#8, 2007 UA ClnCatch+Micro w/rflx Cul t Reviewed date:02/22/2025 12:24:20 PM Interpretation: Performing Lab:[facility], [address] [place] [phone] Notes/Report: Urine, Clean Catch Color Urine Yellow Appearance Urine Clear PH 5.5 5.0-9.0 Glucose Urine UA Negative Negative mg/dL Urine Blood Negative Negative Specific Labelle - Urine 1.020 1.005-1.025 Urine Protein Negative Neg-Trace mg/dL Urine Ketones Negative Negative mg/dL Nitrite Urine Negative Negative Leukocyte Esterase Urine Moderate (2+) Negative RBC Urine 0-2 0-2 /HPF WBC Urine 6-10 0-5 /HPF Squamous Epithelial Cell Urine 3-5 0-2 /HPF Bacteria Urine 1+ None Seen Hyaline Casts Urine 0-2 0-2 /LPF Abbe Reyes Reviewed date:08/17/2024 12:11:25 PM Interpretation: Performing Lab:[facility], [address] [place] [phone] Notes/Report: Abbe Reyes See Note Specimen held untested for 24 hours; Call to request Chemistry testing. Abbe Reyes Reviewed date:02/22/2025 12:04:04 PM Interpretation: Performing Lab:[facility], [address] [place] [phone] Notes/Report: Abbe Reyes See Note Specimen held untested for 24 hours; Call to request Chemistry testing. Reason For Referral No Information Medications Medication SIG (Take, Route, Frequency, Duration) Notes Start Date End Date Status LORazepam 0.5 MG one tab Orally Twice a day as needed for 10 days 05/20/2022 Not-Taking Eliquis 5 MG as directed Orally bid Active HumaLOG KwikPen 100 UNIT/ML 4-12 units Subcutaneous TID Not-Taking BD Pen Needle Short U/F 31G X 8 MM use one needle inject use 4 times a day with needle pen for 90 days Active Lantus SoloStar 100 UNIT/ML 40 units Subcutaneous HS Not-Taking Atorvastatin Calcium 80 MG TAKE 1 TABLET BY MOUTH ONCE DAILY for 90 Active Ibuprofen 800 MG 1 tablet with food o r milk as needed Orally Three times a day for 30 days 08/10/2019 Active Cyclobenzaprine HCl 5 MG 1 tablet at bed time as needed Orally 3 times a day for 10 days 08/10/2019 Not-Taking Levothyroxine Sodium 150 MCG TAKE 1 TABLET BY MOUTH EVERY MORNING ON AN EMPTY STOMACH for 90 Active Lisinopril 20 MG TAKE 1 TABLET BY MONICA TH ONCE DAILY for 90 Active Folic Acid 400 MCG 1 tablet Orally Once a day for 30 day(s) Active traZODone HCl 50 MG TAKE 1 TABLET BY MONICA TH AT BEDTIME NEEDED ONCE DAILY for 90 Active Aspir-Low 81 MG 1 tablet Orally Once a day for 30 day(s) Active Letrozole 2.5 MG TK 1 T PO D Oral for 90 Active traMADol HCl 50 MG 1 tablet as needed Orally every 8 hours as needed for 10 days 08/10/2019 Not-Taking FreeStyle Lite Test 0 use three times da safia In Vitro DX E11.9 three times a day for 90 days Active Lisinopril 40 MG 1 tablet Orally Once a day for 90 days Not-Taking Vitamin D 50 MCG (1999 UT) 1 capsule Ora lly Once a day 11/09/2019 Active Immunizations Vaccine Route Administration Date Status Comme nts PPSV23 (Pnemovax) IM Intramuscular 04/03/2017 Administered Fluarix Quadrivalent IM Intramuscular 02/17/2018 Administered Prevnar 13 IM Intramuscular 10/06/2018 Administered Fluarix Quadrivalent IM Intramuscular 07/19/2019 Administered Fluarix Quadrivalent Unknown 04/10/2020 Administered High Dose Flu Vaccine given by Ladonna Y Wilbraham Covid Vaccine Unknown 08/25/2020 Administered Moderna Covid Vaccine Unknown 09/24/2020 Administered Moderna SARS-COV-2 Moderna Unknown 05/21/2021 Administered Influenza High Dose Unknown 03/08/2021 Administered Influenza High Dose IM Intramuscular 02/18/2022 Administer ed Fluarix Quadrivalent IM Intramuscular 02/24/2023 Administered Fluarix Quadrivalent - 150 IM Intramuscular 02/19/2024 Administered Influenza High Dose IM Intramuscular 02/22/2025 Administer ed Fluarix Quadrivalent Unknown 04/03/2017 Refused Fluarix Quadrivalent Unknown 05/12/2017 Refused Social History Tobacco Use: Social History Observation Description Date Details (start date - stop date) Current Smoker NA - NA Tobacco Use/Smoking Question Answer Notes Patient is a current smoker How often do you smoke cigarettes? every day How many cigarettes a day do you smoke? 11-20 How soon after you wake up d o you smoke your first cigarette? 6-30 minutes Are you interested in quitting? Not ready to russell t Additional Findings: Tobacco User Gurinder gordillo cigarette smoker, not currently using another form of tobacco Alcohol Screen Question Answer Notes Did you have a drink containing alcohol in the p ast year? 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 confirmed Problem 9087456 Primary insomnia (F51.01) Active confirmed Problem 103452077 Other specified menopausal and perimenopausal disorders (N95.8) Active confirmed Problem 55407362 Smoker (F17.200) Active confirmed Problem 317453394 Tubular adenoma of colon (D12.6) Active confirmed Problem 01121763 Essential hypertension (I10) Active confirmed Problem 914802477 Acquired hypothyroidism (E03.9) Active confirmed Problem 365211050 History of breas t cancer (Z85.3) Active confirmed Problem 758139328 Peripheral vascu lar disease (I73.9) Active confirmed Problem 126032223 History of endometrial cancer (Z85.42) Active confirmed Problem 41425162 Urge incontinenc e of urine (N39.41) Active confirmed Problem 197582724 Macrocytosis (D75.89) Active confirmed Problem 881702570 Body mass index (BMI) of 33.0-33.9 in adult (Z68.33) Active confirmed Problem 738896885 BMI 34.0-34.9,ad ult (Z68.34) Active confirmed Problem 50190800 Hyperlipidemia, unspecified hyperlipidemia type (E78.5) Active confirmed Problem 968943749 BMI 33.0-33.9,ad ult (Z68.33) Active confirmed Problem 86783359 AAA (abdominal aortic aneurysm) without rupture (I71.4) Active confirmed Problem 312462634 Abdominal aortic aneurysm (AAA), unspecified part, unspecified whether ruptured (I71.40) Active confirmed Vital Signs Blood pressure diastolic 70 mm Hg 08/26/2024 fallon ght is up 12 pounds since 04-26-24 Height 67.5 in 08/26/2024 weight is up 12 pounds since 04-26-24 Blood pressure systolic 142 mm Hg 08/26/2024 weig ht is up 12 pounds since 04-26-24 Weight 175 lbs 08/26/2024 weight is up 12 pounds since 04-26-24 BMI 27 kg/m2 08/26/2024 weight is up 12 pounds since 04-26-24 Encounters Encounter Location Date Provider Diagnosis Ariel Akhtar MD [address] [place] [id number] 08/17/2024 Ariel Akhtar Type 2 diabetes mellitus without complications E11.9 and Hyperlipidemia, unspecified hyperlipidemia type E78.5 Ariel Akhtar MD [address] [place] [id number] 02/22/2025 Ariel Akhtar Type 2 diabetes mellitus without complications E11.9 ; Hyperlipidemia, unspecified hyperlipidemia type E78.5 ; Acquired hypothyroidism E03.9 ; Vitamin D deficiency E55.9 ; Thrombocytopenia D69.6 and Encounter for administration of vaccine Z23 Ariel Akhtar MD [address] [place] [id number] 02/26/2024 Ariel Akhtar Essential hypertensi on I10 ; Type 2 diabetes mellitus without complications E11.9 ; Smoker F17.200 ; Peripheral vascular disease I73.9 ; Hyperlipidemia, unspecified hyperlipidemia type E78.5 ; Acquired hypothyroidism E03.9 ; Vitamin D deficiency E55.9 ; Depression screening Z13.31 ; Vascular disease I99.9 and Abdominal aortic aneurysm (AAA), unspecified part, unspecified whether ruptured I71.40 Ariel Akhtar MD [address] [place] [id number] 04/26/2024 Ariel Akhtar Laceration of left lower extremity, subsequent encounter S81.812D Ariel Akhtar MD [address] [place] [id number] 08/26/2024 Ariel Akhtar Type 2 diabetes mellitus without complications E11.9 and Hyperlipidemia, unspecified hyperlipidemia type E78.5 Ariel Akhtar MD [address] [place], [place] [id number] 04/22/2024 Ariel Akhtar Assessments Encounter Date Diagnosis (ICD Code) Assessment Notes Treatment Notes Treatment Clinical Notes Section Notes 08/17/2024 Type 2 diabetes mellitus without complications (ICD-10 - E11.9) 02/22/2025 Type 2 diabetes mellitus without complications (ICD-10 - E11.9) 02/22/2025 Hyperlipidemia, unspecified hyperlipidemia type (ICD-10 - E78.5) 02/26/2024 Essential hypertension (ICD-10 - I10) well controlled, will contiue current regiment and will contiue to monitor 02/26/2024 Type 2 diabetes mellitus without complications (ICD-10 - E11.9) good a1c, is at goal, will continue current regiment 04/26/2024 Laceration of left lower extremity, subsequent encounter (ICD-10 - S81.812D) doing well. gave her some extra tapes in case it comes off 08/26/2024 Type 2 diabetes mellitus without complications (ICD-10 - E11.9) needs to get back on diet, advised ob diet and exercise, will cntinue to monitor 08/17/2024 Hyperlipidemia, unspecified hyperlipidemia type (ICD-10 - E78.5) 02/22/2025 Acquired hypothyroidism (ICD-10 - E03.9) 02/26/2024 Smoker (ICD-10 - F17.200) advised to quit, states she is not ready to quit 08/26/2024 Hyperlipidemia, unspecified hyperlipidemia type (ICD-10 - E78.5) doing well on meds, will continue current regiment 02/22/2025 Vitamin D deficiency (ICD-10 - E55.9) 02/26/2024 Peripheral vascular disease (ICD-10 - I73.9) has had a stent 02/22/2025 Thrombocytopenia (ICD-10 - D69.6) 02/22/2025 Encounter for administration of vaccine (ICD-10 - Z23) 02/26/2024 Hyperlipidemia, unspecified hyperlipidemia type (ICD-10 - E78.5) stable, is at goal, will continue current regiment 02/26/2024 Acquired hypothyroidism (ICD-10 - E03.9) stable, at goal, will contiue curent regiment 02/26/2024 Vitamin D deficiency (ICD-10 - E55.9) is still low, will continue current regiment and will continue to monitor 02/26/2024 Depression screening (ICD-10 - Z13.31) negative screen 02/26/2024 Vascular disease (ICD-10 - I99.9) 02/26/2024 Abdominal aortic aneurysm (AAA), unspecified part, unspecified whether ruptured (ICD-10 - I71.40) 02/26/2024 Other being followed by vascular Plan Of Treatment Pending Test Test Name Order Date Electrocardiogram (EKG) 07/16/2018 ECHO 08/15/2020 XR DEXA axial skeleton 08/15/2020 XR DEXA axial skeleton 02/18/2022 Next Appt Details Provider Name:Ariel Johnson ier, 03/01/2025 09:30:00 AM, [address] [place] [address], [address], [place], [place], [id number], Insurance Providers Payer Name Payer Address Payer Phone Subscriber Number Group Number Insured Name Patient Relationship to Insured Coverage Start Date Coverage End Date [employer] [address] [place] [address] [id number] Alla Andrade Self - patient is the insured [facility] [id number] [place], [place] [id number] Alla Andrade Self - patient is the insured Medical (General) History Medical History History ICD Code 05/13/2018 - Colonoscopy done by Dr. Schofield repeat 05/2021 for tubular adenoma done 10/28 repeat in 5 years 12/2016 Total Hysterectomy lisinopril stopped 2018 accidnetallly 08/15/20 - declined to have yearly [facility] for smoking Surgical History Surgery Date(Month/Year) Total laparoscopic hysterect jun and bilateral salpingo-oophorectomy- Dr Balderrama 01/17/2017
== END 2025-02-22 11:18 | disposition home or self-care (01) ==
LOC: HO.LNP 11:17
PROVIDERS: Visit Provider Internal Medicine
DX: E11.9 Type 2 diabetes mellitus without complications (principal); E78.5 Hyperlipidemia, unspecified; E03.9 Hypothyroidism, unspecified; E55.9 Vitamin D deficiency, unspecified; D69.6 Thrombocytopenia, unspecified
CPT/HCPCS: 80053; 80061; 81001; 82043; 82306; 82570; 83036; 84443; 85025; 87086

== ENCOUNTER 2025-03-03 14:57 | Outpatient (REF) | payer MEDICARE, SELFPAY ==
--- OUTSIDE RECORDS SUMMARY | 2024-04-26 07:30 | XMS_ITS ---
Author Organization Ariel Akhtar MD Address [address] [place], [place] [id number] Care Team Providers Care Fire Hazard Inspector Name Role Phone Ariel Akhtar Primary Care Provider Allergies No Known Allergies REASON FOR VISIT F/U Er Visit r leg laceration Medications Medication SIG (Take, Route, Frequency, Duration) Notes Start Date End Date Status BD Pen Needle Short U/F 31G X 8 MM use one needle inject use 4 times a day with needle pen for 90 days Active Ibuprofen 800 MG 1 tablet with food o r milk as needed Orally Three times a day for 30 days 08/10/2019 Active Aspir-Low 81 MG 1 tablet Orally Once a day for 30 day(s) Active Eliquis 5 MG as directed Orally bid Active Letrozole 2.5 MG TK 1 T PO D Oral for 90 Active Lisinopril 40 MG 1 tablet Orally Once a day for 90 days Not-Taking Cyclobenzaprine HCl 5 MG 1 tablet at bed time as needed Orally 3 times a day for 10 days 08/10/2019 Not-Taking traMADol HCl 50 MG 1 tablet as needed Orally every 8 hours as needed for 10 days 08/10/2019 Not-Taking Folic Acid 400 MCG 1 tablet Orally Once a day for 30 day(s) Active Cephalexin 250 MG 1 capsule Orally sanjay ry 6 hrs Active HumaLOG KwikPen 100 UNIT/ML 4-12 units Subcutaneous TID Not-Taking Lantus SoloStar 100 UNIT/ML 40 units Subcutaneous HS Not-Taking Levothyroxine Sodium 150 MCG TAKE 1 TABLET BY MOUTH IN THE MORNING ONCE DAILY ON AN EMPTY STOMACH for 90 Active LORazepam 0.5 MG one tab Orally Twice a day as needed for 10 days 05/20/2022 Not-Taking Atorvastatin Calcium 80 MG TAKE 1 TABLET BY MOUTH ONCE DAILY Active Lisinopril 20 MG TAKE 1 TABLET BY MONICA TH ONCE DAILY Active traZODone HCl 50 MG TAKE 1 TABLET BY MONICA TH AT BEDTIME NEEDED ONCE DAILY for 90 Active Vitamin D 50 MCG (1999) 1 capsule Ora lly Once a day 11/09/2019 Active FreeStyle Lite Test 0 use three times da safia In Vitro DX E11.9 three times a day for 90 days Active Vital Signs Blood pressure systolic 124 mm Hg 04/26/20 24 Blood pressure diastolic 60 mm Hg 024 Height 67.5 in 04/26/2024 Weight 163 lbs 04/26/2024 BMI 25.15 kg/m2 04/26/2024 weight is up 4 pounds since 02-26-24 Encounters Encounter Location Date Provider Diagnosis Ariel Akhtar MD [address] [place] [address] [place] [phone] 04/26/2024 Ariel Akhtar Laceration of left lower extremity, subsequent encounter S81.812D Assessments Encounter Date Diagnosis (ICD Code) Assessment Notes Treatment Notes Treatment Clinical Notes Section Notes 04/26/2024 Laceration of left lower extremity, subsequent encounter (ICD-10 - S81.812D) doing well. gave her some extra tapes in case it comes off Plan Of Treatment Treatment Notes Assessment Notes Laceration of left lower ext remity, subsequent encounter doing well. gave her some extra tapes in case it comes off Next Appt Details Provider Name:Ariel Johnson ier, 08/29/2025 07:30:00 AM, [address], [address], [place], [place], [phone], Provider Name:Ariel Johnson ier, 09/05/2025 09:00:00 AM, [address], [address], [place], [place], [phone], Provider Name:Ariel Johnson ier, 02/23/2026 07:30:00 AM, [address], [address], [place], [place], [phone], Provider Name:Ariel Johnson ier, 03/02/2026 09:30:00 AM, [address] [facility], Suite [facility], [place], [place], [phone], Progress Notes * LUPE KathrineOB:1950 ([age] yo F)Acc No.[id number]:04/26/2024 Patient: Alla Agosto Provider: Amilcar Akhtar MD :1950 A ge:73 Y S ex:Female Date:04/26/2024 Address:[address] [place] [address], [facility] [place] [id number] Subjective: * Chief Complaints: * F /U Er Visit r leg laceration * HPI: S ymptom(s): patient is a 73 yo female here for ER follow up, went to [place] and cart locked up and she walked into it. and lacerated right leg/ had steri strips and glu. * ROS: G eneral/Constitutional: Denies C hills. D enies F atigue. D enies F ever. D enies H eadache. E NT: Patient denies d ecreased sense of smell, any loss of taste, sore throat. D enies S ore throat. R espiratory: Denies C ough. D enies S hortness of breath at rest. D enies S hortness of breath with exertion. G astrointestinal: Denies D iarrhea. D enies N ausea. M usculoskeletal: Patient denies m uscle aches. P eripheral Vascular: Patient denies r ed and blue toes. * Medical History: * Surgical History: * Hospitalization/Major Diagno stic Procedure: * Medications: T akingCephalexin 250 MG Capsule 1 capsule Orally every 6 hrsFolic Acid 400 MCG Tablet 1 tablet Orally Once a dayAspir-Low 81 MG Tablet Delayed Release 1 tablet Orally Once a dayEliquis 5 MG Tablet as directed Orally bidBD Pen Needle Short U/F 31G X 8 MM Miscellaneous use one needle inject use 4 times a day with needle penIbuprofen 800 MG Tablet 1 tablet with food or milk as needed Orally Three times a dayLetrozole 2.5 MG Tablet TK 1 T PO D Oral FreeStyle Lite Test 0 Strip use three times daily In Vitro DX E11.9 three times a daytraZODone HCl 50 MG Tablet TAKE 1 TABLET BY MOUTH AT BEDTIME NEEDED ONCE DAILY Vitamin D 50 MCG (1999) Capsule 1 capsule Orally Once a dayLisinopril 20 MG Tablet TAKE 1 TABLET BY MOUTH ONCE DAILY Atorvastatin Calcium 80 MG Tablet TAKE 1 TABLET BY MOUTH ONCE DAILY Levothyroxine Sodium 150 MCG Tablet TAKE 1 TABLET BY MOUTH IN THE MORNING ONCE DAILY ON AN EMPTY STOMACH Taking Cephalexin 250 MG Capsule 1 capsule Orally every 6 hrsTaking Folic Acid 400 MCG Tablet 1 tablet Orally Once a dayTaking Aspir-Low 81 MG Tablet Delayed Release 1 tablet Orally Once a dayTaking Eliquis 5 MG Tablet as directed Orally bidTaking BD Pen Needle Short U/F 31G X 8 MM Miscellaneous use one needle inject use 4 times a day with needle penTaking Ibuprofen 800 MG Tablet 1 tablet with food or milk as needed Orally Three times a dayTaking Letrozole 2.5 MG Tablet TK 1 T PO D Oral Taking FreeStyle Lite Test 0 Strip use three times daily In Vitro DX E11.9 three times a dayTaking traZODone HCl 50 MG Tablet TAKE 1 TABLET BY MOUTH AT BEDTIME NEEDED ONCE DAILY Taking Vitamin D 50 MCG (1999) Capsule 1 capsule Orally Once a dayTaking Lisinopril 20 MG Tablet TAKE 1 TABLET BY MOUTH ONCE DAILY Taking Atorvastatin Calcium 80 MG Tablet TAKE 1 TABLET BY MOUTH ONCE DAILY Taking Levothyroxine Sodium 150 MCG Tablet TAKE 1 TABLET BY MOUTH IN THE MORNING ONCE DAILY ON AN EMPTY STOMACH Not-Taking/PRNLORazepam 0.5 MG Tablet one tab Orally Twice a day as neededHumaLOG KwikPen 100 UNIT/ML Solution Pen-injector 4-12 units Subcutaneous TIDLantus SoloStar 100 UNIT/ML Solution Pen-injector 40 units Subcutaneous HSCyclobenzaprine HCl 5 MG Tablet 1 tablet at bedtime as needed Orally 3 times a daytraMADol HCl 50 MG Tablet 1 tablet as needed Orally every 8 hours as neededLisinopril 40 MG Tablet 1 tablet Orally Once a dayMedication List reviewed and reconciled with the patientNot-Taking/PRN LORazepam 0.5 MG Tablet one tab Orally Twice a day as neededNot-Taking/PRN HumaLOG KwikPen 100 UNIT/ML Solution Pen-injector 4-12 units Subcutaneous TIDNot-Taking/PRN Lantus SoloStar 100 UNIT/ML Solution Pen-injector 40 units Subcutaneous HSNot- Taking/PRN Cyclobenzaprine HCl 5 MG Tablet 1 tablet at bedtime as needed Orally 3 times a dayNot-Taking/PRN traMADol HCl 50 MG Tablet 1 tablet as needed Orally every 8 hours as neededNot-Taking/PRN Lisinopril 40 MG Tablet 1 tablet Orally Once a dayMedication List reviewed and reconciled with the patient * Allergies: N .K.D.A.yes[Allergies Verified] Objective: * Vitals: H t: 67.5, Wt:163, BMI:25.15, BP:124/60 weight is up 4 pounds since 02-26-24. * Examination: G eneral Examination: GENERAL APPEARANCE: a lert, well hydrated, in no distress.? SKIN: a bnormal with a 3 inch laceration with glu and steristrips. wound looks clean.. Assessment: * Assessment: 1. L aceration of left lower extremity, subsequent encounter - S81.812D (Primary) Plan: * Treatment: * Procedure Codes: * * Sign off status: Completed true * Provider: Amilcar Akhtar MD Date: 06/26/2023 Generated for Tawnya rosario/Nuzhat/Koby on: 0 03/03/2025 07:18 PM EDT History and Physical Notes * HPI (History of Present Illness) Category Sub-Category Detail Notes Category Not es Symptom(s) patient is a 73 yo female here for ER follow up, went to [place] and cart locked up and she walked into it. and lacerated right leg/ had steri strips and glu Examination Category Sub-Category Detail Notes Category Not es General Examination GENERAL APPEARANCE: alert, w ell hydrated, in no distress SKIN: abnormal with a 3 in ch laceration with glu and steristrips. wound looks clean.
--- OUTSIDE RECORDS SUMMARY | 2024-08-17 03:15 | XMS_ITS ---
Author Organization Ariel Akhtar MD Address [address] [place], [place] [id number] Care Team Providers Care Mason Helper Name Role Phone Ariel Akhtar Primary Care Provider [phone] Results Component Value Reference Range Notes Liver Panel Reviewed date:08/18/2024 07:05:22 PM Interpretation: Performing Lab:[facility], [address] [place] [phone] Notes/Report: Bilirubin Total 0.4 0.0-1.0 mg/dL Bilirubin Direct 0.1 0.0-0.5 mg/dL Aspartate Amino Transferase 34 5-31 U/L Alanine Aminotransferase 23 0-31 U/L Total Protein 7.7 6.5-8.0 g/dL Albumin Level 3.7 3.5-5.0 g/dL Alkaline Phosphatase 98 39-117 U/L Glucose Fasting Reviewed date:08/18/2024 07:04:15 PM Interpretation: Performing Lab:[facility], [address] [place] [phone] Notes/Report: Glucose Fasting 111 60-99 mg/dL A fasting glucose from 100-125 mg/dl is considered impaired (pre-diabetes). Lipid Panel with Reflex Reviewed date:08/17/2024 02:05:22 PM Interpretation: Performing Lab:[facility], [address] [place] [phone] Notes/Report: Triglycerides 97 <150 mg/dL Desirable Triglyceride: [...] A1c Reviewed date:08/17/2024 12:11:33 PM Interpretation: Performing Lab:[facility], [address] [place] [phone] Notes/Report: Hemoglobin A1c % 5.8 <6.0 % [...] average glucose, using the formula of the M9A-Tqxvaze Average Glucose study (ADAG), Diabetes Care, Vol.31,#8, 2007 REASON FOR VISIT fasting lipds Encounters Encounter Location Date Provider Diagnosis Ariel Akhtar MD [address] [place] [address] Drive [address] [place], [place] [phone] 08/17/2024 Ariel Akhtar Type 2 diabetes mellitus without complications E11.9 and Hyperlipidemia, unspecified hyperlipidemia type E78.5 Assessments Encounter Date Diagnosis (ICD Code) Assessment Notes Treatment Notes Treatment Clinical Notes Section Notes 08/17/2024 Type 2 diabetes mellitus without complications (ICD-10 - E11.9) 08/17/2024 Hyperlipidemia, unspecified hyperlipidemia type (ICD-10 - E78.5) Plan Of Treatment Next Appt Details Provider Name:Ariel Johnson ier, 08/29/2025 07:30:00 AM, [address] [place] [address], [address] [place] [address], [phone], Provider Name:Ariel Johnson ier, 09/05/2025 09:00:00 AM, [address] [place] [address], [address] [place] [address], [phone], Provider Name:Ariel Johnson ier, 02/23/2026 07:30:00 AM, [address] [place] [address], [address], [phone], Provider Name:Ariel Johnson ier, 03/02/2026 09:30:00 AM, [address] [place] [address], [address] [place] [address], [phone], Progress Notes * Kathrine ANDRADEOB:1950 ([age] yo F)Acc No.[id number]:08/17/2024 Progress Note Patient: Alla ALVAREZ Provider: Amilcar Akhtar MD :1950 A ge:74 Y S ex:Female Date:08/17/2024 Address: [place] [facility] [id number] Subjective: * Chief Complaints: * 1 . [...] 08/17/2024 Generated for Tawnya rosario/Nuzhat/Christieitting on: 0 03/03/2025 07:16 PM EDT
--- OUTSIDE RECORDS SUMMARY | 2024-08-26 06:45 | XMS_ITS ---
Author Organization Ariel Akhtar MD Address [address] [place], [place] [id number] Care Team Providers Care Audiology Technician Name Role Phone Ariel Akhtar Primary Care [...] Location Date Provider Diagnosis Ariel Akhtar MD [address] [place] [address] [place] [phone] 08/26/2024 Ariel Akhtar Type 2 diabetes mellitus [...] Provider Name:Ariel Johnson ier, 08/29/2025 07:30:00 AM, [address] [place] [address], [address] [facility], [place], [place], [phone], Provider Name:Ariel Johnson ier, 09/05/2025 09:00:00 AM, [address] [place] [address], [address] [facility], [place], [place], [phone], Provider Name:Ariel Johnson ier, 02/23/2026 07:30:00 AM, [address] [place] [address], [address] [facility], [place], [place], [phone], Provider Name:Ariel Johnson ier, 03/02/2026 09:30:00 AM, [address] [place] [address], [address] [place] [address], [phone], Progress Notes * Kathrine ANDRADEOB:1950 ([age] yo F)Acc No.[id number]:08/26/2024 Progress Notes Patient: Alla ALVAREZ Provider: Amilcar Akhtar MD :1950 A ge:74 Y S ex:Female Date:08/26/2024 Address:[address] [place] [address], [facility] Subjective: * Chief Complaints: * 6 month [...] Taking Vitamin D 50 MCG (2000 UT) Capsule 1 capsule Orally Once a [...] 08/17/2024 07:15 AM) Value Reference Range Hold Eric See Note - L ab:Glucose Fasting (Order [...] MD Date: 0 08/26/2024 Generated for Tawnya rosario/Nuhzat/Christieitting on: 0 03/03/2025 07:17 PM EDT History and Physical Notes * [...]
--- OUTSIDE RECORDS SUMMARY | 2024-10-18 05:00 | XMS_ITS ---
Author Organization [facility] Address [address] [place] [address] Care Team Providers Care Plasma Processing Centrifuge Operator Name Role Phone Ariel Akhtar MD Primary Care Provider Amairani Falcon Unavailable [phone] Encounters Encounter Location Date Provider Diagnosis [address] [address] 10/18/2024 Amairani Jean Plan Of Treatment Next Appt Details Provider Name:Amairani campos, 04/04/2025 09:00:00 AM, [address] [place] [address], [place], [address], Progress Notes * Kathrine ANDRADEOB:1950 ([age] yo F)Acc No.[id number]:10/18/2024 Progress Note Patient: Alla ALVAREZ Provider: Desmond Jean DPM :1950 A ge:74 Y S ex:Female Date:10/18/2024 Address:[address] [facility] Pcp:Ariel Akhtar MD Subjective: * Chief Complaints: * * Medical History: Objective: * Vitals: Assessment: Plan: * Treatment: * Images: * The named appointment provid er may or may not be the originator of this progress note, and it is not deemed complete until electronically signed by the appointment provider. Sign off status: Pending * Provider: Desmond Jean DPM Date: 0 10/18/2024 Generated for Tawnya rosario/Nuzhat/Koby on: 0 03/03/2025 07:17 PM EDT
--- OUTSIDE RECORDS SUMMARY | 2024-10-25 09:45 | XMS_ITS ---
Author Organization [facility] Address [address] [place] [address] Care Team Providers Care Rail Flaw Detector Operator Name Role Phone Ariel Akhtar MD Primary Care Provider Amairani Falcon Unavailable [phone] Encounters Encounter Location Date Provider Diagnosis [address] [address] 10/25/2024 Amairani Jean Plan Of Treatment Next Appt Details Provider Name:Amairani campos, 04/04/2025 09:00:00 AM, [address] [place] [address], [place], [address], Progress Notes * Kathrine ANDRADEOB:1950 ([age] yo F)Acc No.[id number]:10/25/2024 Progress Note Patient: Misael ALVAREZil Provider: Desmond Jean DPM :1950 A ge:74 Y S ex:Female Date:10/25/2024 Address:[address] [facility] Pcp:Ariel Akhtar MD Subjective: * Chief Complaints: [...] 10/25/2024 Generated for Tawnya rosario/Nuzhat/Koby on: 0 03/03/2025 07:17 PM EDT
--- OUTSIDE RECORDS SUMMARY | 2025-02-22 03:15 | XMS_ITS ---
Author Organization Ariel Akhtar MD Address [address] [place], [place] [id number] Care Team Providers Care Competency Evaluated Nurse Aide Name Role Phone Ariel Akhtar Primary Care Provider Results Component Value Reference Range Notes Complete Blood Count Auto Di ff Reviewed date:02/22/2025 12:20:49 PM Interpretation: Performing Lab:[facility], [address] [place] [phone] Notes/Report: White Blood Count 4.9 4.8-10.8 X10*3/uL [...] NRBC Abs Auto 0.000 0.0-0.012 X10*3/uL Comprehensive [place]. Panel Fa st Reviewed date:02/22/2025 12:23:43 PM Interpretation: Performing Lab:[facility], [address] [place] [phone] Notes/Report: Sodium 142 135-145 mmol/L Potassium 4.1 [...] Panel Reviewed date:02/22/2025 12:22:37 PM Interpretation: Performing Lab:[facility], [address] [place] [phone] Notes/Report: Triglycerides 126 <150 mg/dL Desirable Triglyceride: [...] Total Reviewed date:02/22/2025 12:22:26 PM Interpretation: Performing Lab:[facility], [address] [place] [phone] Notes/Report: Vitamin D 25-OH Total 34.6 >30 [...] T4 Reviewed date:02/22/2025 12:21:12 PM Interpretation: Performing Lab:[address] [phone] Notes/Report: TSH reflex Free T4 1.49 0.32-4.0 uIU/mL Microalbumin, Random Reviewed date:02/22/2025 02:40:35 PM Interpretation: Performing Lab:[facility], [address] [place] [phone] Notes/Report: Creatinine Urine 150.02 Microalbumin Urine 30.0 Microalbum/Creatinine Ratio Ur 19.9 <30 ug/mg cr Albumin/Creatinine Ratio Reference Ranges: Normal: < 30 ug/mg creatinine Microalbuminuria: 30 - 300 ug/mg creatinine Clinical Albuminuria: > 300 ug/mg creatinine Hemoglobin A1c Reviewed date:02/22/2025 12:04:31 PM Interpretation: Performing Lab:[address] [phone] Notes/Report: Hemoglobin A1c % 6.0 <6.0 % [...] average glucose, using the formula of the B1R-Oyvfioo Average Glucose study (ADAG), Diabetes Care, Vol.31,#8, Jan. 2007 UA ClnCatch+Micro w/rflx Cul t Reviewed date:02/22/2025 12:24:20 PM Interpretation: Performing Lab:[facility], [address] [place] [phone] Notes/Report: Urine, Clean Catch Color Urine Yellow Appearance Urine Clear PH 5.5 5.0-9.0 Glucose Urine UA Negative Negative mg/dL Urine Blood Negative Negative Specific [place] - Urine 1.020 1.005-1.025 Urine Protein Negative [...] Location Date Provider Diagnosis Ariel Akhtar MD [address] [place] [address] [place] [phone] 02/22/2025 Ariel Akhtar Type 2 diabetes mellitus without complications E11.9 ; Encounter for administration of vaccine Z23 ; Hyperlipidemia, unspecified hyperlipidemia type E78.5 ; Acquired hypothyroidism E03.9 ; Vitamin D deficiency E55.9 and Thrombocytopenia D69.6 Assessments Encounter Date Diagnosis (ICD Code) Assessment Notes Treatment Notes Treatment Clinical Notes Section Notes 02/22/2025 Type 2 diabetes mellitus without complications (ICD-10 - E11.9) 02/22/2025 Encounter for administration of vaccine (ICD-10 - Z23) 02/22/2025 Hyperlipidemia, unspecified hyperlipidemia type (ICD-10 - E78.5) 02/22/2025 Acquired hypothyroidism (ICD-10 - E03.9) 02/22/2025 Vitamin D deficiency (ICD-10 - E55.9) 02/22/2025 Thrombocytopenia (ICD-10 - D69.6) Plan Of Treatment Next Appt Details Provider Name:Ariel walker, 08/29/2025 07:30:00 AM, [address] [place] [address], [address] [place] [address], [phone], Provider Name:Ariel walker, 09/05/2025 09:00:00 AM, [address] [place] [address], [address], [phone], Provider Name:Ariel walker, 02/23/2026 07:30:00 AM, [address] [place] [address], [address], [phone], Provider Name:Ariel Johnson ier, 03/02/2026 09:30:00 AM, [address], [address], [place], [place], [phone], Progress Notes * Misael ANDRADEBreOB:1950 ([age] yo F)Acc No.[id number]:02/22/2025 Progress Note Patient: Alla ALVAREZ Provider: Amilcar Akhtar MD :1950 A ge:74 Y S ex:Female Date:02/22/2025 Address: [id number] Subjective: * Chief Complaints: * 1 . Yearly fasting labs. * Medical History: Objective: * Vitals: Assessment: * Assessment: 1. T ype 2 diabetes mellitus without complications - E11.9 (Primary) 2 . E ncounter for administration of vaccine - Z23 3 . H yperlipidemia, unspecified hyperlipidemia type - E78.5 4 . A cquired hypothyroidism - E03.9 5 . V itamin D deficiency - E55.9 6 . T hrombocytopenia - D69.6 ? Plan: * Treatment: 2. H yperlipidemia, unspecified hyperlipidemia type L AB: Complete Blood Count Auto Diff (Collection Date & Time - 02/22/2025 11:19 AM) L AB: Comprehensive [place]. Panel Fast (Collection Date & Time - [...] - 02/22/2025 11:19 AM) L AB: Comprehensive [place]. Panel Fast (Collection Date & Time - [...] - 02/22/2025 11:19 AM) L AB: Comprehensive [place]. Panel Fast (Collection Date & Time - [...] - 02/22/2025 11:19 AM) L AB: Comprehensive [place]. Panel Fast (Collection Date & Time - [...] * Procedure Codes: 3 6415 VENIPUNCT, ROUTINE*, 02725 FLU VACC PRSV FREE INC ANTIG, G0008 ADMN FLU VAC NO FEE SCHED SAME DAY * * The named appointment provid er may or may not be the originator of this progress note, and it is not deemed complete until electronically signed by the appointment provider. Sign off status: Pending * Provider: Amilcar Akhtar MD Date: 0 02/22/2025 Generated for Tawnya rosario/Nuzhat/Christieitting on: 0 03/03/2025 07:17 PM EDT
--- OUTSIDE RECORDS SUMMARY | 2025-03-01 05:30 | XMS_ITS ---
Author Organization Ariel Akhtar MD Address [address] [place], [place] [id number] Care Team Providers Care Electroencephalogram Technologist Name Role Phone Ariel Akhtar Primary Care Provider [phone] Allergies No Known Allergies REASON FOR VISIT Comp visit Medications Medication SIG (Take, Route, Frequency, Duration) Notes Start Date End Date Status Eliquis 5 MG as directed Orally bid Active Letrozole 2.5 MG TK 1 T PO D Oral for 90 Active FreeStyle Lite Test 0 use three times da safia In Vitro DX E11.9 three times a day for 90 days Active BD Pen Needle Short U/F 31G X 8 MM use one needle inject use 4 times a day with needle pen for 90 days Active Ibuprofen 800 MG 1 tablet with food o r milk as needed Orally Three times a day for 30 days 08/10/2019 Active Aspir-Low 81 MG 1 tablet Orally Once a day for 30 day(s) Active Lisinopril 40 MG 1 [...] Once a day for 30 day(s) Active Levothyroxine Sodium 150 MCG TAKE 1 TABLET BY MOUTH EVERY MORNING ON AN EMPTY STOMACH Active Vitamin D 50 MCG (1999) 1 capsule Ora lly Once a day 11/09/2019 Active HumaLOG KwikPen 100 UNIT/ML 4-12 units Subcutaneous TID Not-Taking Lantus SoloStar 100 UNIT/ML 40 units Subcutaneous HS Not-Taking LORazepam 0.5 MG one tab Orally Twice a day as needed for 10 days 05/20/2022 Not-Taking Lisinopril 20 MG TAKE 1 TABLET BY MONICA TH ONCE DAILY Active Atorvastatin Calcium 80 MG TAKE 1 TABLET BY MOUTH ONCE DAILY Active traZODone HCl 50 MG TAKE 1 TABLET BY MONICA TH AT BEDTIME NEEDED ONCE DAILY for 90 Active Social History Tobacco Use: Social History [...] to russell t Additional Findings: Tobacco User Curren t cigarette smoker, not currently using another form of tobacco Alcohol Screen Question Answer Notes Did you have a drink containing alcohol in the p ast year? No Points 0 Interpretation Negative Problems Problem Type SNOMED Code ICD Code Onset Dates Problem Status W/U Status Risk Notes Problem Carpal tunnel syndrome (31471544) Carpal tunnel syndrome (G56.00) Active confirmed Vital Signs Blood pressure systolic 152 mm Hg 03/01/20 25 Blood pressure diastolic 74 mm Hg 025 Height 67.5 in 03/01/2025 Weight 185 lbs 03/01/2025 BMI 28.54 kg/m2 03/01/2025 weight is up 10 pounds since 08-26-24 Encounters Encounter Location Date Provider Diagnosis Ariel Akhtar MD [address] [place] [address] [address] [place], [place] [id number] 03/01/2025 Ariel Akhtar Hyperlipidemia, unspecified hyperlipidemia type E78.5 ; Acquired hypothyroidism E03.9 ; Essential hypertension I10 ; Smoker F17.200 ; Peripheral vascular disease I73.9 ; Carpal tunnel syndrome G56.00 ; Type 2 diabetes mellitus without complications E11.9 and Vitamin D deficiency E55.9 Assessments Encounter Date Diagnosis (ICD Code) Assessment Notes Treatment Notes Treatment Clinical Notes Section Notes 03/01/2025 Hyperlipidemia, unspecified hyperlipidemia type (ICD-10 - E78.5) well controlled, will cpntnue current regiment 03/01/2025 Acquired hypothyroidism (ICD-10 - E03.9) good tsh, will continue current regiment and will continue to monitor 03/01/2025 Essential hypertension (ICD-10 - I10) doing well on meds, will continue current regiment 03/01/2025 Smoker (ICD-10 - F17.200) no interest in quitting 03/01/2025 Peripheral vascular disease (ICD-10 - I73.9) still smoking 03/01/2025 Carpal tunnel syndrome (ICD-10 - G56.00) she is going to discuss with her hand surgeon 03/01/2025 Type 2 diabetes mellitus without complications (ICD-10 - E11.9) stable, will continue current regiment and will continue to monitor 03/01/2025 Vitamin D deficiency (ICD-10 - E55.9) stable, will continue current regiment Plan Of Treatment Medication Medication Name Sig Start Date Stop Date Notes Levothyroxine Sodium 150 MCG TAKE 1 TABL ET BY MOUTH EVERY MORNING ON AN EMPTY STOMACH Vitamin D 50 MCG (1999 UT) 1 capsule Orally Once a day 07/2019 Lisinopril 20 MG TAKE 1 TABLET BY MONICA TH ONCE DAILY Atorvastatin Calcium 80 MG TAKE 1 TABLET BY MOUTH ONCE DAILY Treatment Notes Assessment Notes Hyperlipidemia, unspecified hyperlipidemia type well controlled, will cpntnue current regiment Acquired hypothyroidism good tsh, will c ontinue current regiment and will continue to monitor Essential hypertension doing well on med s, will continue current regiment Smoker no interest in quitt ing Peripheral vascular disease still smokin g Carpal tunnel syndrome she is going to d iscuss with her hand surgeon Type 2 diabetes mellitus without complic ations stable, will continue current regiment and will continue to monitor Vitamin D deficiency stable, will contin ue current regiment Next Appt Details Provider Name:Ariel Johnson ier, 08/29/2025 07:30:00 AM, [address], [address], [place], [id number], Provider Name:Ariel Johnson ier, 09/05/2025 09:00:00 AM, [address], [address], [place], [id number], Provider Name:Ariel Johnson ier, 02/23/2026 07:30:00 AM, [address], [address], [place], [id number], Provider Name:Ariel Johnson ier, 03/02/2026 09:30:00 AM, [address] [place] [address], [address], [place], [id number], Progress Notes * Kathrine ANDRADEOB:1950 ([age] yo F)Acc No.[id number]:03/01/2025 Patient: Alla ALVAREZ Provider: Amilcar Akhtar MD :1950 A ge:74 Y S ex:Female Date:03/01/2025 Address:[address] [place] [address], [id number] Subjective: * Chief Complaints: * 1 . Comp visit. * HPI: D epression Screening: PHQ-9 L ittle interest or pleasure in doing things N ot at all, F eeling down, depressed, or hopeless N ot at all, T rouble falling or staying asleep, or sleeping too much N ot at all, F eeling tired or having little energy N ot at all, P oor appetite or overeating N ot at all, F eeling bad about yourself or that you are a failure, or have let yourself or your family down N ot at all, T rouble concentrating on things, such as reading the newspaper or watching television N ot at all, M oving or speaking so slowly that other people could have noticed; or the opposite, being so fidgety or restless that you have been moving around a lot more than usual N ot at all, T houghts that you would be better off or of hurting yourself in some way N ot at all, T otal Score 0 . I nterpretation and Intervention D epression Screening Findings N egative, F ollow-Up for Depression : review of PHQ-9 found negative result, no follow-up needed. C ommunication Needs: Communication Needs D oes the patient have a hearing impairment N o, D oes the patient have a vision impairment? Y es, I f yes, what is the vision impairment? G lasses, D oes the patient have a cognition impairment? N o. F all Risk: History H ave you had any falls with injury in the past year? N o, H ave you had two or more falls in the past year? N o. S BREANA Questions: SDOH Questions I n the past year have you been worried about losing housing? N o, I n the past year have you or any family members you live with been unable to get any of the following when it was really needed? Check all that apply: N one. S ymptom(s): patient is a 74 yo female here for review of recent labs and follow up of chronic issues. h ere for yearly evaluation/ having symptoms of carpal. * ROS: G eneral/Constitutional: Change in appetite d enies. C hills d enies. F ever d enies. O phthalmologic: Blurred vision d enies. D ischarge d enies. P ain d enies. E NT: Decreased hearing d enies. S ore throat d enies.?Swollen glands d enies. E ndocrine: Cold intolerance d enies. E xcessive thirst d enies. H eat intolerance d enies. W eight loss d enies. R espiratory: Cough d enies. S hortness of breath at rest d enies. S hortness of breath with exertion d enies. W heezing d enies. C ardiovascular: Chest pain at rest d enies. C hest pain with exertion?denies. I rregular heartbeat d enies. S hortness of breath d enies. ? G astrointestinal: Abdominal pain d enies. C hange in bowel habits d enies. D iarrhea d enies. N ausea d enies. R ectal bleeding d enies. V omiting d enies . G enitourinary: Blood in urine d enies. D ifficulty urinating d enies. F requent urination d enies. U rinary incontinence D enies. M usculoskeletal: Painful joints d enies. W eakness d enies. ? S kin: Dry skin d enies. I tching d enies. D enies?Mole(s), changes in moles, new moles or any lesions of concern. D enies P hotosensitivity. R andreas d enies. N eurologic: Dizziness d enies. F ainting d enies. H eadache?denies. * Medical History: 1 07/14/2017 - Colonoscopy done by Dr. Schofield repeat 05/2021 for tubular adenoma done 10/28 repeat in 5 years, 12/2016 Total Hysterectomy, Lisinopril stopped 2017 accidnetallly, 08/15/20 - declined to have yearly CT of Chest for smoking. * Family History: F ather: 38 yrs. M other: 84 yrs, diagnosed with Cancer, Diabetes. 3 brother(s) , 2 sister(s) . 2 daughter(s) . . Father Heart Mother bladder cancer, Denies mental health/substance abuse family history, No pertinent family medical history, Denies mental health/substance abuse family history. * Social History: T obacco Use: T obacco Use/Smoking P atient is a c urrent smoker, H ow often do you smoke cigarettes? e very day, H ow many cigarettes a day do you smoke? 1 1-20, H ow soon after you wake up do you smoke your first cigarette? 6 -30 minutes, A re you interested in quitting? N ot ready to quit, A dditional Findings: Tobacco User C urrent cigarette smoker, not currently using another form of tobacco. D rugs/Alcohol: A lcohol Screen D id you have a drink containing alcohol in the past year? N o, P oints 0 , I nterpretation N egative. M iscellaneous: C affeine: yes, frequency:, 1-2 cups per day. Children: yes. Exercise: no. Home smoke detector use: yes. Housing: owning. Living with: spouse. Marital status: . Pets: cats: dogs:1 cat. * Medications: T aking Folic Acid 400 MCG Tablet 1 tablet Orally Once a day , Taking Aspir-Low 81 MG Tablet Delayed Release 1 tablet Orally Once a day , Taking Eliquis 5 MG Tablet as directed Orally bid , Taking BD Pen Needle Short U/F 31G X 8 MM Miscellaneous use one needle inject use 4 times a day with needle pen , Taking Ibuprofen 800 MG Tablet 1 tablet with food or milk as needed Orally Three times a day , Taking Letrozole 2.5 MG Tablet TK 1 T PO D Oral , Taking FreeStyle Lite Test 0 Strip use three times daily In Vitro DX E11.9 three times a day , Taking Vitamin D 50 MCG (1999 UT) Capsule 1 capsule Orally Once a day , Taking Lisinopril 20 MG Tablet TAKE 1 TABLET BY MOUTH ONCE DAILY , Taking traZODone HCl 50 MG Tablet TAKE 1 TABLET BY MOUTH AT BEDTIME NEEDED ONCE DAILY , Taking Atorvastatin Calcium 80 MG Tablet TAKE 1 TABLET BY MOUTH ONCE DAILY , Taking Levothyroxine Sodium 150 MCG Tablet TAKE 1 TABLET BY MOUTH EVERY MORNING ON AN EMPTY STOMACH , Not-Taking/PRN LORazepam 0.5 MG Tablet one tab Orally Twice a day as needed , Not-Taking/PRN HumaLOG KwikPen 100 UNIT/ML Solution Pen-injector 4-12 units Subcutaneous TID , Not-Taking/PRN Lantus SoloStar 100 UNIT/ML Solution Pen-injector 40 units Subcutaneous HS , Not-Taking/PRN Cyclobenzaprine HCl 5 MG Tablet 1 tablet at bedtime as needed Orally 3 times a day , Not-Taking/PRN traMADol HCl 50 MG Tablet 1 tablet as needed Orally every 8 hours as needed , Not-Taking/PRN Lisinopril 40 MG Tablet 1 tablet Orally Once a day , Medication List reviewed and reconciled with the patient * Allergies: N .K.D.A. Objective: * Vitals: H t: 67.5, Wt: 185, BMI:28.54, BP:152/74, Wt-k.92. weight is up 10 pounds since 08-26-24. * P ast Orders: L ab:TSH reflex Free T4 (Order Date - 02/22/2025) (Collection Date & Time - 02/22/2025 11:19 AM) Value Reference Range TSH reflex Free T4 1.49 0.32-4.0 - uIU/mL L ab:Microalbumin, Random (Order Date - 02/22/2025) (Collection Date & Time - 02/22/2025 11:19 AM) Value Reference Range Creatinine Urine 150.02 - mg/dL Microalbumin Urine 30.0 - mg/L Microalbum Creatinine Ratio Ur 19.9 <30 - ug/ mg cr L ab:Complete Blood Count Auto Diff (Order Date - 02/22/2025) (Collection Date & Time - 02/22/2025 11:19 AM) Value Reference Range White Blood Count 4.9 4.8-10.8 - X10*3/uL Red Blood Count 3.76 L 4.20-5.50 - X10*6/uL Hemoglobin 13.7 12.0-16.0 - g/dl Hematocrit 39.9 37.0-47.0 - % Mean Corpuscular Volume 106.1 H 80.0-98.0 - fL Mean Corpuscular Hemoglobin 36.4 H 27.0-33.0 - pg Mean Corpuscular HGB Conc 34.3 31.0-35.0 - g/ dl Red Cell Distribution Width 15.0 11.0-16.0 - % Platelet Count 150 L 160-400 - X10*3/uL Mean Platelet Volume 11.4 9.4-12.3 - fL Neutrophils Percent Auto 64.3 45-73 - % Imm Gran Pct Auto 0.2 0.0-0.4 - % Lymphocytes Percent Auto 21.0 20-40 - % Monocytes Percent Auto 8.0 2-11 - % Eosinophils Percent Auto 5.5 H 0-4 - % Basophils Percent Auto 1.0 0-2 - % NRBC Pct Auto 0.0 0.0-0.2 - /100WBC Neutrophils Absolute Auto 3.2 2.0-8.3 - x10* 3/uL Imm Gran Abs Auto 0.01 0.00-0.03 - X10*3/uL Lymphocytes Absolute Auto 1.0 L 1.2-4.9 - X10* 3/uL Monocytes Absolute Auto 0.4 0.1-1.2 - X10*3/ uL Eosinophils Absolute Auto 0.3 0.0-0.4 - X10* 3/uL Basophils Absolute Auto 0.1 0.0-0.2 - X10*3/ uL NRBC Abs Auto 0.000 0.0-0.012 - X10*3/uL L ab:Hemoglobin A1c (Order Date - 02/22/2025) (Collection Date & Time - 02/22/2025 11:19 AM) Value Reference Range Hemoglobin A1c % 6.0 <6.0 - % Estimated Average Glucose 126 - mg/dL L ab:Comprehensive [place]. Panel Fast (Order Date - 02/22/2025) (Collection Date & Time - 02/22/2025 11:19 AM) Value Reference Range Sodium 142 135-145 - mmol/L Bilirubin Total 0.5 0.0-1.0 - mg/dL Aspartate Amino Transferase 25 5-31 - U/L Alanine Aminotransferase 13 0-31 - U/L Total Protein 7.2 6.5-8.0 - g/dL Albumin Level 3.9 3.5-5.0 - g/dL Alkaline Phosphatase 96 39-117 - U/L Potassium 4.1 3.3-5.1 - mmol/L Chloride 111 H 96-108 - mmol/L Carbon Dioxide 26 22-29 - mmol/L Anion Gap 9 L 12-20 - Blood Urea Nitrogen 17 H 9-16 - mg/dL Creatinine 0.78 0.5-1.4 - mg/dL Estimated Glomerular Filt Rate > 60 - Glucose Fasting 126 H 60-99 - mg/dL Calcium 9.2 8.4-10.2 - mg/dL L ab:UA ClnCatch+Micro w/rflx Cult (Order Date - 02/22/2025) (Collection Date & Time - 02/22/2025 11:19 AM) Value Reference Range Color Urine Yellow - Appearance Urine Clear - PH 5.5 5.0-9.0 - Glucose Urine UA Negative Negative - mg/dL Urine Blood Negative Negative - Specific [place] - Urine 1.020 1.005-1.025 - Urine Protein Negative Neg-Trace - mg/dL Urine Ketones Negative Negative - mg/dL Nitrite Urine Negative Negative - Leukocyte Esterase Urine Moderate (2+) A Negative - RBC Urine 0-2 0-2 - /HPF WBC Urine 6-10 0-5 - /HPF Squamous Epithelial Cell Urine 3-5 0-2 - /HP F Bacteria Urine 1+ None Seen - Hyaline Casts Urine 0-2 0-2 - /LPF L ab:Lipid Panel (Order Date - 02/22/2025) (Collection Date & Time - 02/22/2025 11:19 AM) Value Reference Range Triglycerides 126 <150 - mg/dL Cholesterol 130 <200 - mg/dL LDL Cholesterol Calculated 66 <100 - mg/dL HDL Cholesterol 39 L >40 - mg/dL L ab:Vitamin D 25-OH Total (Order Date - 02/22/2025) (Collection Date & Time - 02/22/2025 11:19 AM) Value Reference Range Vitamin D 25-OH Total 34.6 >30 - ng/mL * Examination: G eneral Examination: GENERAL APPEARANCE: w ell developed, well nourished, in no acute distress. HEAD: n ormocephalic, atraumatic. EYES: p upils equal, round, reactive to light and accommodation, sclera non-icteric. EARS: n ormal. ORAL CAVITY: m ucosa moist. THROAT: c lear. NECK/THYROID: n martin supple, full range of motion, no cervical lymphadenopathy, no bruits. SKIN: w arm and dry, no suspicious lesions. HEART: r egular rate and rhythm, S1, S2 normal, no murmurs.? LUNGS: c lear to auscultation bilaterally. BREASTS: d eclined. ABDOMEN: s oft, nontender, nondistended, bowel sounds present, normal, no organomegaly , no masses palpable. RECTAL EXAM: d eclined. FEMALE GENITOURINARY: d eclined. EXTREMITIES: n o clubbing, cyanosis, or edema. NEUROLOGIC: n onfocal, motor strength normal upper and lower extremities, sensory exam intact. Assessment: * Assessment: 1. H yperlipidemia, unspecified hyperlipidemia type - E78.5 (Primary) 2 . A cquired hypothyroidism - E03.9 3 . E ssential hypertension - I10 ?4. S moker - F17.200 5 . P eripheral vascular disease - I73.9 6. C arpal tunnel syndrome - G56.00 7 . T ype 2 diabetes mellitus without complications - E11.9 8 . V itamin D deficiency - E55.9 Plan: * Treatment: 2. A cquired hypothyroidism Continue Levothyroxine Sodium Tablet, 150 MCG, TAKE 1 TABLET BY MOUTH EVERY MORNING ON AN EMPTY STOMACH. Notes: good tsh, will continue current regiment and will continue to monitor 3. E ssential hypertension Continue Lisinopril Tablet, 20 MG, TAKE 1 TABLET BY MOUTH ONCE DAILY. Notes: doing well on meds, will continue current regiment 4. S moker Notes: no interest in quitting 5. P eripheral vascular disease Notes: still smoking 6. C arpal tunnel syndrome Notes: she is going to discuss with her hand surgeon 7. T ype 2 diabetes mellitus without complications Notes: stable, will continue current regiment and will continue to monitor 8. V itamin D deficiency Continue Vitamin D Capsule, 50 MCG (1999 UT), 1 capsule, Orally, Once a day. Notes: stable, will continue current regiment * Procedure Codes: G 2211 Complex e/m visit add on * Preventive Medicine: Diabetes Care Plan: P atient Lifestyle Goals N eeds to maintain diet control.?Treatment Goals A 1C< 7. B arriers N o specific barriers, doing well. E xpected Outcome m aintaining stable blood sugar levels within a target range. * * The named appointment provid er may or may not be the originator of this progress note, and it is not deemed complete until electronically signed by the appointment provider. Sign off status: Pending * Provider: Amilcar Akhtar MD Date: 03/01/2025 Generated for Tawnya rosario/Nuzhat/Christieitting on: 03/03/2025 07:17 PM EDT History and Physical Notes * HPI (History of Present Illness) Category Sub-Category Detail Notes Category Not es Symptom(s) patient is a 74 yo female here for review of recent labs and follow up of chronic issues. here for yearly evaluation/ having symptoms of carpal Depression Screening PHQ-9 Little inte rest or pleasure in doing things: Not at all Feeling down, depressed, or hopeless: No t at all Trouble falling or staying asleep, or sl eeping too much: Not at all Feeling tired or having little energy: N ot at all Poor appetite or overeating: Not at all Feeling bad about yourself o r that you are a failure, or have let yourself or your family down: Not at all Trouble concentrating on thi ngs, such as reading the newspaper or watching television: Not at all Moving or speaking so slowly that other people could have noticed; or the opposite, being so fidgety or restless that you have been moving around a lot more than usual: Not at all Thoughts that you would be b stacie off or of hurting yourself in some way: Not at all Total Score: 0 Interpretation and Intervention Depression Lauryn martin Findings: Negative Follow-Up for Depression: : review of PH Q-9 found negative result, no follow-up needed SDOH Questions SDOH Questions In the past year have you been worried about losing housing?: No In the past year have you or any family members you live with been unable to get any of the following when it was really needed? Check all that apply:: None Fall Risk History Have you had any falls with injury i n the past year?: No Have you had two or more falls in the year?: No Communication Needs Communication Needs Does the patient have a hearing impairment: No Does the patient have a vision impairmen t?: Yes If yes, what is the vision impairment?: Glasses Does the patient have a cognition impair ment?: No Examination Category Sub-Category Detail Notes Category Not es General Examination GENERAL APPEARANCE: well dev eloped, well nourished, in no acute distress HEAD: normocephalic, atrau matic EYES: pupils equal, round, reactive to light and accommodation, sclera non-icteric EARS: normal THROAT: clear NECK/THYROID: neck supple, full ra nge of motion, no cervical lymphadenopathy, no bruits HEART: regular rate and rhy thm, S1, S2 normal, no murmurs LUNGS: clear to auscultatio n bilaterally ABDOMEN: soft, nontender, non distended, bowel sounds present, normal, no organomegaly , no masses palpable NEUROLOGIC: nonfocal, motor stre ngth normal upper and lower extremities, sensory exam intact SKIN: warm and dry, no fredrick picious lesions EXTREMITIES: no clubbing, cyanosi s, or edema BREASTS: declined RECTAL EXAM: declined FEMALE GENITOURINARY: declined ORAL CAVITY: mucosa moist
--- OUTSIDE RECORDS SUMMARY | 2025-03-03 19:17 | XMS_ITS | Patient Health Record ---
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 Role Phone Giovana ALBARRAN, Ariel Primary [...] Problem Status W/U Status Risk Notes Problem 560295378 Colon cancer screening (Z12.11) Active confirmed Problem [id number] group home (curre nt) use of anticoagulants (Z79.01) Active confirmed Problem [id number] Encounter for ot her preprocedural examination (Z01.818) Active confirmed Problem 188127490 group home (curre nt) use of insulin (Z79.4) Active confirmed Plan Of Treatment Future Test Test Name Order Date COLONOSCOPY 12/03/2017 COLONOSCOPY 10/11/2021 Insurance Providers Payer Name Payer Address Payer Phone Subscriber Number Group Number Insured Name Patient Relationship to Insured Coverage Start Date Coverage End Date MEDICARE OF [place] [address] [place] [address] [phone] [id number] LYNSEY ANDRADE Self - patient is the insured [facility] SUPP[employer]AL PLAN [address] [place] [id number] LYNSEY ANDRADE Self - patient is the insured Medical (General) History Medical History History ICD Code diabetes mellitus hypothyroidism elevated cholesterol uterine cancer hypertension breast cancer 2019 abdominal aortic aneurysm Surgical History Surgery Date(Month/Year) right knee replacement cholecystectomy tubal ligation hysterectomy hernia repair lumpectomy right left leg stent
--- OUTSIDE RECORDS SUMMARY | 2025-03-03 19:17 | XMS_ITS | Patient Health Record ---
Author Organization [facility] Address [address] [place] [address] Care Team Providers Care Bolt Threader Name Role Phone Giovana ALBARRAN, Ariel Primary Care Provider Amairani Falcon Unavailable [phone] Allergies No Known Allergies Results Component Value [...] Problem Acquired hammer toe of left foot (7489925528147737) Hammer toe of left foot (M20.42) Active confirmed Problem Polyneuropathy due to type 2 diabetes mellitus (015850016) Type 2 diabetes mellitus with polyneuropathy (E11.42) Active confirmed Problem Bilateral atherosclerosis of arteries of lower limbs (disorder) (78440176042910327 ) Atherosclerosis of artery of both lower extremities (I70.203) Active confirmed Vital Signs Blood pressure diastolic 75 mm Hg 12/27/2024 Height 5ft 7in in 12/27/2024 Blood pressure systolic 113 mm Hg 12/27/2024 Weight 156 lbs 12/27/2024 BMI 24.43 kg/m2 12/27/2024 Encounters Encounter Location Date Provider Diagnosis [address] [place] [address] 04/15/2024 Amairani Perica Tinea pedis of both feet B35.3 ; Atherosclerosis of artery of both lower extremities I70.203 ; Type 2 diabetes mellitus with polyneuropathy E11.42 and Tinea unguium B35.[address] [address] 07/19/2024 Amairani Perica Tinea pedis of both feet B35.3 ; Atherosclerosis of artery of both lower extremities I70.203 ; Type 2 diabetes mellitus with polyneuropathy E11.42 and Tinea unguium B35.[address] [address] 12/27/2024 Amairani Perica Atherosclerosis of artery of [...] both lower extremities (ICD-10 - I70.203) 07/19/2024 Atherosclerosis of artery of both lower extremities (ICD-10 - I70.203) 12/27/2024 Type 2 diabetes mellitus with polyneuropathy (ICD-10 - E11.42) 04/15/2024 Atherosclerosis of artery of both lower extremities (ICD-10 - I70.203) 04/15/2024 Type 2 diabetes mellitus with polyneuropathy (ICD-10 - E11.42) 07/19/2024 Type 2 diabetes mellitus with polyneuropathy (ICD-10 - E11.42) 12/27/2024 Tinea unguium (ICD-10 - B35.1) 07/19/2024 Tinea unguium (ICD-10 - B35.1) 04/15/2024 Tinea unguium (ICD-10 - B35.1) Plan Of Treatment Next Appt Details Provider Name:Amairani Reese campos, 04/04/2025 09:00:00 AM, [address] [place] [address], [place], [address], Insurance Providers Payer Name Payer Address Payer Phone Subscriber Number Group Number Insured Name Patient Relationship to Insured Coverage Start Date Coverage End Date Medicare [employer] [address] [place] [address] [id number] Alla Velasquez Self - patient is the insured A[employer] Secondary to Medicare [address] [place] [address] [id number] Alla Velasquez Self - patient is the insured Medical (General) History Medical History History ICD Code Arthritis Back,Hip,and Knee pain Cancer Diabetic High blood pressure thyroid Measles Mumps Chicken pox Joint implants/screws Surgical History Surgery Date(Month/Year) cholecystectomy 1970 hernia 1980 hysterectomy 2018 knee replacement 2010 Breast Surgery 2018 Hand Surgery 03/12/21 total knee replacement, left 10/29/23 hand surgery 07/29/2024 Hospitalization History Reason Date(Month/Year) [facility]- cut on left leg, infection, celluli tis 06/2023 [facility]- fell, cut head 05/12/21
--- OUTSIDE RECORDS SUMMARY | 2025-03-03 19:18 | XMS_ITS | Patient Health Record ---
Author Organization Ariel Akhtar MD Address [address] [place], [place] [id number] Care Team Providers Care Headwaiter/Headwaitress Name Role Phone Ariel Akhtar Primary Care Provider [phone] Allergies No Known Allergies Results Component Value Reference Range Notes Liver Panel Reviewed date:08/18/2024 07:05:22 PM Interpretation: Performing Lab:[facility], [address] [place] [phone] Notes/Report: Bilirubin Total 0.4 0.0-1.0 mg/dL Bilirubin Direct 0.1 0.0-0.5 mg/dL Aspartate Amino Transferase 34 5-31 U/L Alanine Aminotransferase 23 0-31 U/L Total Protein 7.7 6.5-8.0 g/dL Albumin Level 3.7 3.5-5.0 g/dL Alkaline Phosphatase 98 39-117 U/L Glucose Fasting Reviewed date:08/18/2024 07:04:15 PM Interpretation: Performing Lab:[facility], [address] [place] [phone] Notes/Report: Glucose Fasting 111 60-99 mg/dL A fasting glucose from 100-125 mg/dl is considered impaired (pre-diabetes). Lipid Panel with Reflex Reviewed date:08/17/2024 02:05:22 PM Interpretation: Performing Lab:[facility], [address] [place] [phone] Notes/Report: Triglycerides 97 <150 mg/dL Desirable Triglyceride: [...] A1c Reviewed date:08/17/2024 12:11:33 PM Interpretation: Performing Lab:[facility], [address] [place] [phone] Notes/Report: Hemoglobin A1c % 5.8 <6.0 % [...] average glucose, using the formula of the M9F-Hmdtsyp Average Glucose study (ADAG), Diabetes Care, Vol.31,#8, 2007 Complete Blood Count Auto Di ff Reviewed date:02/22/2025 12:20:49 PM Interpretation: Performing Lab:[facility], [address] [place] [phone] Notes/Report: White Blood Count 4.9 4.8-10.8 X10*3/uL [...] NRBC Abs Auto 0.000 0.0-0.012 X10*3/uL Comprehensive [place]. Panel Fa st Reviewed date:02/22/2025 12:23:43 PM Interpretation: Performing Lab:[facility], [address] [place] [phone] Notes/Report: Sodium 142 135-145 mmol/L Potassium 4.1 [...] Panel Reviewed date:02/22/2025 12:22:37 PM Interpretation: Performing Lab:[facility], [address] [place] [phone] Notes/Report: Triglycerides 126 <150 mg/dL Desirable Triglyceride: [...] Total Reviewed date:02/22/2025 12:22:26 PM Interpretation: Performing Lab:[address] [phone] Notes/Report: Vitamin D 25-OH Total 34.6 >30 [...] T4 Reviewed date:02/22/2025 12:21:12 PM Interpretation: Performing Lab:[facility], [address] [place] [phone] Notes/Report: TSH reflex Free T4 1.49 0.32-4.0 uIU/mL Microalbumin, Random Reviewed date:02/22/2025 02:40:35 PM Interpretation: Performing Lab:[facility], [address] [place] [phone] Notes/Report: Creatinine Urine 150.02 Microalbumin Urine 30.0 Microalbum/Creatinine Ratio Ur 19.9 <30 ug/mg cr Albumin/Creatinine Ratio Reference Ranges: Normal: < 30 ug/mg creatinine Microalbuminuria: 30 - 300 ug/mg creatinine Clinical Albuminuria: > 300 ug/mg creatinine Hemoglobin A1c Reviewed date:02/22/2025 12:04:31 PM Interpretation: Performing Lab:[facility], [address] [place] [phone] Notes/Report: Hemoglobin A1c % 6.0 <6.0 % [...] average glucose, using the formula of the M1F-Pnqszha Average Glucose study (ADAG), Diabetes Care, Vol.31,#8, Jan. 2007 UA ClnCatch+Micro w/rflx Cul t Reviewed date:02/22/2025 12:24:20 PM Interpretation: Performing Lab:[facility], [address] [place] [phone] Notes/Report: Urine, Clean Catch Color Urine Yellow Appearance Urine Clear PH 5.5 5.0-9.0 Glucose Urine UA Negative Negative mg/dL Urine Blood Negative Negative Specific Dougherty - Urine 1.020 1.005-1.025 Urine Protein Negative Neg-Trace mg/dL Urine Ketones Negative Negative mg/dL Nitrite Urine Negative Negative Leukocyte Esterase Urine Moderate (2+) Negative RBC Urine 0-2 0-2 /HPF WBC Urine 6-10 0-5 /HPF Squamous Epithelial Cell Urine 3-5 0-2 /HPF Bacteria Urine 1+ None Seen Hyaline Casts Urine 0-2 0-2 /LPF Abbe Reyes Reviewed date:08/17/2024 12:11:25 PM Interpretation: Performing Lab:[facility], [address] [place] [phone] Notes/Report: Abbe Reyes See Note Specimen held untested for 24 hours; Call to request Chemistry testing. Abbe Reyes Reviewed date:02/22/2025 12:04:04 PM Interpretation: Performing Lab:[facility], [address] [place] [phone] Notes/Report: Abbe Reyes See Note Specimen held untested for 24 hours; Call to request Chemistry testing. Urine Culture Reviewed date:02/23/2025 06:04:08 PM Interpretation: Performing Lab:[facility], [address] [place] [phone] Notes/Report: Urine Culture Report Result Urine Culture < 10,000 cfu/ml Reason For Referral No Information Medications Medication SIG (Take, Route, Frequency, Duration) Notes Start Date End Date Status Aspir-Low 81 MG 1 tablet Orally Once a day for 30 day(s) Active Eliquis 5 MG as directed Orally bid Active Levothyroxine Sodium 150 MCG TAKE 1 TABLET BY MOUTH EVERY MORNING ON AN EMPTY STOMACH Active Letrozole 2.5 MG TK 1 T PO D Oral for 90 Active Vitamin D 50 MCG (2000 UT) 1 capsule Ora lly Once a day 11/09/2019 Active FreeStyle Lite Test 0 use three times da safia In Vitro DX E11.9 three times a day for 90 days Active Lisinopril 20 MG TAKE 1 TABLET BY MONICA TH ONCE DAILY Active BD Pen Needle Short U/F 31G X 8 MM use one needle inject use 4 times a day with needle pen for 90 days Active Atorvastatin Calcium 80 MG TAKE 1 TABLET BY MOUTH ONCE DAILY Active Ibuprofen 800 MG 1 tablet with food o r milk as needed Orally Three times a day for 30 days 08/10/2019 Active Lisinopril 40 MG 1 tablet Orally Once a day for 90 days Not-Taking Cyclobenzaprine HCl 5 MG 1 tablet at bed time as needed Orally 3 times a day for 10 days 08/10/2019 Not-Taking traMADol HCl 50 MG 1 tablet as needed Orally every 8 hours as needed for 10 days 08/10/2019 Not-Taking traZODone HCl 50 MG TAKE 1 TABLET BY MONICA TH AT BEDTIME NEEDED ONCE DAILY for 90 Active HumaLOG KwikPen 100 UNIT/ML 4-12 units Subcutaneous TID Not-Taking Lantus SoloStar 100 UNIT/ML 40 units Subcutaneous HS Not-Taking Folic Acid 400 MCG 1 tablet Orally Once a day for 30 day(s) Active LORazepam 0.5 MG one tab Orally Twice a day as needed for 10 days 05/20/2022 Not-Taking Immunizations Vaccine Route Administration Date Status Comme [facility] PPSV23 (Pnemovax) IM Intramuscular 04/03/2017 Administered Fluarix Quadrivalent IM Intramuscular 02/17/2018 Administered Prevnar 13 IM Intramuscular 10/06/2018 Administered Fluarix Quadrivalent IM Intramuscular 07/19/2019 Administered Fluarix Quadrivalent Unknown 04/10/2020 Administered High Dose Flu Vaccine given by [facility] Covid Vaccine Unknown 08/25/2020 Administered [...] russell t Additional Findings: Tobacco User Gurinder t cigarette smoker, not currently using another form of tobacco Alcohol Screen Question Answer Notes Did you have a drink containing alcohol in the p ast year? 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) Active confirmed Problem 5887431 Primary insomnia (F51.01) Active confirmed Problem 453323355 Other specified menopausal and perimenopausal disorders (N95.8) Active confirmed Problem 53647597 Smoker (F17.200) Active confirmed Problem 795753405 Tubular adenoma of colon (D12.6) Active confirmed Problem 43147634 Essential hypertension (I10) Active confirmed Problem 788114938 Acquired hypothyroidism (E03.9) Active confirmed Problem 336312017 History of breas t cancer (Z85.3) Active confirmed Problem 796889799 Peripheral vascu lar disease (I73.9) Active confirmed Problem 286108279 History of endometrial cancer (Z85.42) Active confirmed Problem 80042721 Urge incontinenc e of urine (N39.41) Active confirmed Problem 601880318 Macrocytosis (D75.89) Active confirmed Problem 800198561 Body mass index (BMI) of 33.0-33.9 in adult (Z68.33) Active confirmed Problem 226407146 BMI 34.0-34.9,ad ult (Z68.34) Active confirmed Problem 55175933 Hyperlipidemia, unspecified hyperlipidemia type (E78.5) Active confirmed Problem 479715833 BMI 33.0-33.9,ad ult (Z68.33) Active confirmed Problem 62199039 AAA (abdominal aortic aneurysm) without rupture (I71.4) Active confirmed Problem 467733292 Abdominal aortic aneurysm (AAA), unspecified part, unspecified whether ruptured (I71.40) Active confirmed Vital Signs Blood pressure diastolic 74 mm Hg 03/01/2025 fallon ght is up 10 pounds since 08-26-24 Height 67.5 in 03/01/2025 weight is up 10 pounds since 08-26-24 Blood pressure systolic 152 mm Hg 03/01/2025 weig ht is up 10 pounds since 08-26-24 Weight 185 lbs 03/01/2025 weight is up 10 pounds since 08-26-24 BMI 28.54 kg/m2 03/01/2025 weight is up 10 pounds since 08-26-24 Encounters Encounter Location Date Provider Diagnosis Ariel Akhtar MD [address] [place] [id number] 08/17/2024 Ariel Akhtar Type 2 diabetes mellitus without complications E11.9 and Hyperlipidemia, unspecified hyperlipidemia type E78.5 Ariel Akhtar MD [address] [id number] 02/22/2025 Ariel Akhtar Type 2 diabetes mellitus without complications E11.9 ; Encounter for administration of vaccine Z23 ; Hyperlipidemia, unspecified hyperlipidemia type E78.5 ; Acquired hypothyroidism E03.9 ; Vitamin D deficiency E55.9 and Thrombocytopenia D69.6 Ariel Akhtar MD [address] [place] [id number] 03/01/2025 Ariel Akhtar Hyperlipidemia, unspecified hyperlipidemia type E78.5 ; Acquired hypothyroidism E03.9 ; Essential hypertension I10 ; Smoker F17.200 ; Peripheral vascular disease I73.9 ; Carpal tunnel syndrome G56.00 ; Type 2 diabetes mellitus without complications E11.9 and Vitamin D deficiency E55.9 Ariel Akhtar MD [address] [place] [id number] 04/26/2024 Ariel Akhtar Laceration of left lower extremity, subsequent encounter S81.812D Ariel Akhtar MD [address] [place] [id number] 08/26/2024 Ariel Akhtar Type 2 diabetes mellitus without complications E11.9 and Hyperlipidemia, unspecified hyperlipidemia type E78.5 Ariel Akhtar MD [address] [place] [id number] 04/22/2024 Ariel Akhtar Assessments Encounter Date Diagnosis (ICD Code) Assessment Notes Treatment Notes Treatment Clinical Notes Section Notes 08/17/2024 Type 2 diabetes mellitus without complications (ICD-10 - E11.9) 02/22/2025 Type 2 diabetes mellitus without complications (ICD-10 - E11.9) 02/22/2025 Encounter for administration of vaccine (ICD-10 - Z23) 03/01/2025 Hyperlipidemia, unspecified hyperlipidemia type (ICD-10 - E78.5) well controlled, will cpntnue current regiment 03/01/2025 Acquired hypothyroidism (ICD-10 - E03.9) good tsh, will continue current regiment and will continue to monitor 04/26/2024 Laceration of left lower extremity, subsequent encounter (ICD-10 - S81.812D) doing well. gave her some extra tapes in case it comes off 08/26/2024 Type 2 diabetes mellitus without complications (ICD-10 - E11.9) needs to get back on diet, advised ob diet and exercise, will cntinue to monitor 08/17/2024 Hyperlipidemia, unspecified hyperlipidemia type (ICD-10 - E78.5) 02/22/2025 Hyperlipidemia, unspecified hyperlipidemia type (ICD-10 - E78.5) 03/01/2025 Essential hypertension (ICD-10 - I10) doing well on meds, will continue current regiment 08/26/2024 Hyperlipidemia, unspecified hyperlipidemia type (ICD-10 - E78.5) doing well on meds, will continue current regiment 02/22/2025 Acquired hypothyroidism (ICD-10 - E03.9) 03/01/2025 Smoker (ICD-10 - F17.200) no interest in quitting 02/22/2025 Vitamin D deficiency (ICD-10 - E55.9) 03/01/2025 Peripheral vascular disease (ICD-10 - I73.9) still smoking 02/22/2025 Thrombocytopenia (ICD-10 - D69.6) 03/01/2025 Carpal tunnel syndrome (ICD-10 - G56.00) she is going to discuss with her hand surgeon 03/01/2025 Type 2 diabetes mellitus without complications (ICD-10 - E11.9) stable, will continue current regiment and will continue to monitor 03/01/2025 Vitamin D deficiency (ICD-10 - E55.9) stable, will continue current regiment Plan Of Treatment Pending Test Test Name Order Date Electrocardiogram (EKG) 07/16/2018 ECHO 08/15/2020 XR DEXA axial skeleton 08/15/2020 XR DEXA axial skeleton 02/18/2022 Next Appt Details Provider Name:Arielraoul Johnson ier, 08/29/2025 07:30:00 AM, [address] [place] [address], [address], [phone], Provider Name:Ariel Johnson ier, 09/05/2025 09:00:00 AM, [address] [place] [address], [address], [phone], Provider Name:Ariel Johnson ier, 02/23/2026 07:30:00 AM, [address] [place] [address], [address], [phone], Provider Name:Ariel Elif Mananvivian ier, 03/02/2026 09:30:00 AM, [address] [place] [address], [address], [phone], Insurance Providers Payer Name Payer Address Payer Phone Subscriber Number Group Number Insured Name Patient Relationship to Insured Coverage Start Date Coverage End Date [employer] [address] [place] [address] [id number] Alla Andrade Self - patient is the insured [facility] [address] [place], [place] [id number] Alla Andrade Self - patient is the insured Medical (General) History Medical History History ICD Code 05/13/2018 - Colonoscopy done by Dr. Schofield repeat 05/2021 for tubular adenoma done 10/28 repeat in 5 years 12/2016 Total Hysterectomy lisinopril stopped 2017 accidnetallly 08/15/20 - declined to have yearly CT of [facility] [place] for smoking Surgical History Surgery Date(Month/Year) Total laparoscopic hysterect jun and bilateral salpingo-oophorectomy- Dr Balderrama 01/17/2017
== END 2025-03-03 14:58 | disposition home or self-care (01) ==
LOC: HO.MAMMO 14:57
PROVIDERS: PCP Internal Medicine; Visit Provider Surgery
DX: Z12.31 Encounter for screening mammogram for malignant neoplasm of breast (principal)
CPT/HCPCS: 77063; 77067

== ENCOUNTER → 2025-03-03 15:30 | Outpatient (BNV) | payer MEDICARE, SELFPAY | PROVIDERS: PCP Internal Medicine; Visit Provider Internal Medicine | DX: Z12.31 Encounter for screening mammogram for malignant neoplasm of breast (principal) | CPT/HCPCS: 77063; 77067 ==